=== PATIENT | female | born 1950 | race Caucasian/White ===

== ENCOUNTER 2020-03-13 14:00 | Outpatient (REF) | payer OTHER, SELFPAY ==
--- NOTE | 2020-03-13 15:00 | XR_ITS ---
EXAMINATION: XR PELVIS CLINICAL INFORMATION: Pain COMPARISON: Previous x-ray most recent November 2019 TECHNIQUE: AP view of the pelvis. FINDINGS: There is severe left hip arthritis with joint space narrowing and osteophyte formation. There is a vertical lucency in the left superior lateral acetabulum. This is similar to previous exam. There is a right hip replacement in satisfactory position. Bones of the pelvis are unremarkable. There are degenerative changes of the visualized lower lumbar spine. There are surgical clips to the right of the lower lumbar spine and in the bilateral pelvis. IMPRESSION: Severe left hip arthritis. Stable appearance to the vertical lucency in the superior lateral acetabulum from November 2019 exam. Satisfactory appearance of right hip replacement.
== END 2020-03-13 14:01 | disposition home or self-care (01) ==
LOC: CF 14:00
PROVIDERS: PCP Internal Medicine; Referring Provider Internal Medicine; Visit Provider Orthopaedic Surgery
DX: M25.559 Pain in unspecified hip (principal); M16.12 Unilateral primary osteoarthritis, left hip
CPT/HCPCS: 72170; 99213

== ENCOUNTER 2020-04-01 05:38 | Inpatient (IN) | payer OTHER, MEDICARE, SELFPAY ==
[2020-03-01 09:03] VITALS: BMI 29.7
[2020-03-04 12:02] VITALS: BP 140/70; PULSE 75; RESP 20; O2SAT 97; BMI 29.5
--- NOTE | 2020-03-04 12:42 | P.CONAN_ITS ---
Documented by User: Yaa Byrnesney 03/29/20 10:27 HPI - Anesthesia Eval Consult details Narrative: Resched to 04/01/20 70yo F for L NOLAN s/p R NOLAN 11/2018 Pcp Cleared [facility] Past Medical History Medical History Arthritis Back pain Cancer Elevated cholesterol Essential tremor Hx of degenerative disc disease Hx pulmonary embolism Postoperative voiding difficulty Family History Family history of problems with anesthesia: No Surgical History Surgical History H/O colonoscopy History of surgical removal of ganglion cyst History of total replacement of left shoulder joint History of total right hip arthroplasty Hx of cataract surgery Hx of cervical discectomy Hx of lumbar discectomy Hx of total hysterectomy with removal of both tubes and ovaries History of Problems with Anesthesia: No Social History Social History Are you a primary medicare contact specialist to a significant other at home: No Do you presently have visiting nurse or other home services: No Smoking Status: Former smoker Smoked in Last 30 Days: No Smoking Quit Date: 2009 Second Hand Smoke Exposure: No Use of substances other than those prescribed or required for medical reasons: No Have you been hit, kicked, punched, or otherwise hurt by someone within the past year? If so, by whom?: No Advance Directives: No Advance Directives Information Provided: No Recently lost weight without trying: No Current occupational status: retired Current occupation: Right Handed Narrative Narrative: Pt with inability to void post-op last hip. Required straight cath x 2 days. No recent illness. No CP/ SOB with minimal activity. activity limited by pain. Meds Allergies Allergy/AdvReac Type Severity Reaction Status Date / Time amoxicillin [AMOXICILLIN] Allergy Severe ANGIOEDEMA, Verified 03/13/20 14:12 tongue swells Home Medications Medication Instructions Recorded Confirmed Type amlodipine 1 tab PO DAILY 03/04/20 04/01/20 History carboxymethylcellulose sodium 1 drp OPHTHALMIC (EYE) BID 03/04/20 04/01/20 History [Refresh Liquigel] [id number] C-Mn 2 cap PO DAILY 03/04/20 04/01/20 History [Glucosamine 1500 Complex] pravastatin 20 mg PO BEDTIME 03/04/20 04/01/20 History primidone 50 mg PO QID 03/04/20 03/04/20 History vitamin B complex 1 tab PO DAILY 03/04/20 04/01/20 History Exam Exam Date and Time: March 04, 2020 1242 Height,Weight and Vital Signs: Height 5 ft 4.5 in Weight 79.379 kg Last Vital Signs Pulse 75 03/04/20 12:02 Resp 20 03/04/20 12:02 BP 140/70 H 03/04/20 12:02 Pulse Ox 97 03/04/20 12:02 Pertinent Lab Results Pertinent Lab Results: WBC 5.1 HGB 13.0 HCT 41.2 PLT 359 NA 141 K 52 Cl 108 CO2 28 BUN 15 Creat 0.8 Narrative Narrative: EKG 03/11/20: NSR @61, LAD Airway Mallampati Class: III TM Dist: >3cm Neck ROM: Full (S/p disc decompression) Heart: RRR Lungs: CTAB Assessment and Plan Assessment Anesthesia Assessment: Anesthesia Plan Discussed, Consent Obtained and PAT Visit Documented by User: Mac Gardiner MD 04/01/20 07:39 PMFSH Past Medical History Medical History Arthritis Back pain Cancer Elevated cholesterol Essential tremor Hx of degenerative disc disease Hx pulmonary embolism Postoperative voiding difficulty Surgical History Surgical History H/O colonoscopy History of surgical removal of ganglion cyst History of total replacement of left shoulder joint History of total right hip arthroplasty Hx of cataract surgery Hx of cervical discectomy Hx of lumbar discectomy Hx of total hysterectomy with removal of both tubes and ovaries Social History Social History Are you a primary medicare contact specialist to a significant other at home: No Do you presently have visiting nurse or other home services: No Smoking Status: Former smoker Smoked in Last 30 Days: No Smoking Quit Date: 2009 Second Hand Smoke Exposure: No Use of substances other than those prescribed or required for medical reasons: No Have you been hit, kicked, punched, or otherwise hurt by someone within the past year? If so, by whom?: No Advance Directives: No Advance Directives Information Provided: No Recently lost weight without trying: No Current occupational status: retired Current occupation: Right Handed Meds Allergies Allergy/AdvReac Type Severity Reaction Status Date / Time amoxicillin [AMOXICILLIN] Allergy Severe ANGIOEDEMA, Verified 03/13/20 14:12 tongue swells Home Medications Medication Instructions Recorded Confirmed Type amlodipine 1 tab PO DAILY 03/04/20 04/01/20 History carboxymethylcellulose sodium 1 drp OPHTHALMIC (EYE) BID 03/04/20 04/01/20 History [Refresh Liquigel] [id number] C-Mn 2 cap PO DAILY 03/04/20 04/01/20 History [Glucosamine 1500 Complex] pravastatin 20 mg PO BEDTIME 03/04/20 04/01/20 History primidone 50 mg PO QID 03/04/20 03/04/20 History vitamin B complex 1 tab PO DAILY 03/04/20 04/01/20 History Assessment and Plan Assessment Anesthesia Assessment: Anesthesia Plan Discussed, Consent Obtained, Smoking Cess. Discussed and Chart Reviewed Final Anesthetic Review ASA Class: II Final Preanesthetic Review: No Changes in Pt Med Stat, Meds & Allergies Reviewed, Consent Obtained/Reviewed, Med/Surg/Anes Hx Reviewed and Anes Risks/Benef Reviewed Patient Risk: Intermediate Procedure Risk: Intermediate Anesthetic Plan Anesthetic Plan: GA Disposition: Standard PACU
[2020-03-04 16:31] LABS: MRSA Nasal PCR Negative (Negative); SA Nasal PCR Negative (Negative)
[2020-04-01] VITALS (12 sets, daily range): BP systolic 100–152; BP diastolic 52–79; PULSE 71–88; RESP 14–19; TEMP 36.2–36.8; O2SAT 93–100
[2020-04-01] MEDS: oxyCODONE HCl ER 10 MG TAB.ER.12H PO (06:03)
[2020-04-01] MEDS: Gabapentin 600 MG TABLET PO (06:04)
[2020-04-01] MEDS: Lactated Ringers 1,000 ML 100 ML IVCONT (06:39)
[2020-04-01 07:21] LABS: SARS COV2 PCR INHOUSE NEGATIVE (Negative)
[2020-04-01] MEDS: ceFAZolin Sodium/Dextrose,Iso 2 GM/50 ML PIGGYBACK IV ×2 (07:22→14:18)
--- NOTE | 2020-04-01 07:30 | PC.NURSE ---
PATIENT IS ALLERGIC TO AMOXICILLIN AND HAD CEFAZOLIN LAST YEAR FOR HER RIGHT HIP. CALLED PHARMACY.
--- NOTE | 2020-04-01 07:30 | MHC.SHP ---
Pre-Procedural Eval Section A The patient is an INPATIENT: No Changes since office visit: No Cold of Flu in the past 2 weeks, No New Medical Problems, No Changes in Medication and No Patient answered all questions The History & Physical has been completed within 30 days and I have reviewed it.: No Section B Chief Complaint: LT NOLAN Allergies: Allergies Allergy/AdvReac Type Severity Reaction Status Date / Time amoxicillin [AMOXICILLIN] Allergy Severe ANGIOEDEMA, Verified 03/13/20 14:12 tongue swells Plan Patient has been examined and remains a candidate for the planned procedure
--- NOTE | 2020-04-01 09:18 | P.PCNOP_ITS ---
Brief Operative Note Date of procedure: 04/01/20 Pre-op diagnosis: OA LEFT HIP Procedure: LEFT NOLAN Anesthesia: CEM Surgeon: Dmitry Alex Director Foundation: Jadiel Rai Estimated blood loss (mL): 100 Condition: stable Disposition: PACU
--- NOTE | 2020-04-01 09:29 | PM.IMCN ---
History of Present Illness Data of Consult Service Date: 04/01/20 <Barbara Leblanc NP - Last Filed: 04/01/20 12:26> Primary Care Provider: Yolanda Davis <Barbara eLblanc NP - Last Filed: 04/01/20 12:26> HPI Reason for consult: Medical management <Barbara Leblanc NP - Last Filed: 04/01/20 12:26> 70 year old women admitted by orthopedic surgery. Surgery was unremarkable. She is still somewhat woozy according to the patient. Her pain seem to be managed at this point. Her vital signs mare stable. She's resting in bed. <Barbara Leblanc NP - Last Filed: 04/01/20 12:26> Review of Systems Review of Systems: Denies any recent fever chills or decrease in appetite respiratory denies any shortness of breath coverage production cardiovascular is adjustment of any PND or edema gastrointestinal denies any dysphagia abdominal pain nausea vomiting or diarrhea genitourinary denies any dysuria frequency or hematuria musculoskeletal joint/hip pain neuropsych denies any weakness or seizures all other systems reviewed are negative <Barbara Leblanc NP - Last Filed: 04/01/20 12:26> FOR[facility]LY [facility], [facility] Medical History: Medical History Arthritis Back pain Cancer Elevated cholesterol Essential tremor Hx of degenerative disc disease Hx pulmonary embolism Postoperative voiding difficulty <Barbara Leblanc NP - Last Filed: 04/01/20 12:26> Family History: Family History (Updated 04/01/20 @ 09:35 by Barbara Leblanc NP) Mother HTN (hypertension), benign <Barbara Leblanc NP - Last Filed: 04/01/20 12:26> Surgical History: Surgical History H/O colonoscopy History of surgical removal of ganglion cyst History of total replacement of left shoulder joint History of total right hip arthroplasty Hx of cataract surgery Hx of cervical discectomy Hx of lumbar discectomy Hx of total hysterectomy with removal of both tubes and ovaries <Barbara Leblanc NP - Last Filed: 04/01/20 12:26> Social History: Social History Household Members: None Housing: Apartment Are you a primary health care social worker to a significant other at home: No Do you presently have visiting nurse or other home services: No Smoking Status: Former smoker Smoked in Last 30 Days: No Smoking Quit Date: 2009 Second Hand Smoke Exposure: No Use of substances other than those prescribed or required for medical reasons: No Have you been hit, kicked, punched, or otherwise hurt by someone within the past year? If so, by whom?: No Advance Directives: No Advance Directives Information Provided: No Do you have thoughts of harming others: None Do you have a plan to hurt others: No Plan Recently lost weight without trying: No Current occupational status: retired Current occupation: Right Handed <Barbara Leblanc NP - Last Filed: 04/01/20 12:26> Meds Allergies/Adverse reactions: Allergies Allergy/AdvReac Type Severity Reaction Status Date / Time amoxicillin [AMOXICILLIN] Allergy Severe ANGIOEDEMA, Verified 03/13/20 14:12 tongue swells <Barbara Leblanc NP - Last Filed: 04/01/20 12:26> Home medications: Home Medications Medication Instructions Recorded Confirmed Type amlodipine 1 tab PO DAILY 03/04/20 04/01/20 History carboxymethylcellulose sodium 1 drp OPHTHALMIC (EYE) BID 03/04/20 04/01/20 History [Refresh Liquigel] [id number] C-Mn 2 cap PO DAILY 03/04/20 04/01/20 History [Glucosamine 1500 Complex] pravastatin 20 mg PO BEDTIME 03/04/20 04/01/20 History primidone 50 mg PO QID 03/04/20 03/04/20 History vitamin B complex 1 tab PO DAILY 03/04/20 04/01/20 History <Barbara Leblanc NP - Last Filed: 04/01/20 12:26> Physical Exam Vital Signs and Narrative: Vital Signs: Last Vital Signs Temp 98.1 F 04/01/20 06:29 Pulse 71 04/01/20 06:29 Resp 16 04/01/20 06:29 BP 124/69 04/01/20 06:29 Pulse Ox 95 04/01/20 06:29 Body Mass Index 29.5 <Barbara Leblanc NP - Last Filed: 04/01/20 12:26> Appearing in no acute distress head is normocephalic atraumatic eyes pupils are PERRLA sclera is anicteric mouth throat mucous membranes are intact and moist neck is supple no lymphadenopathy, no JVD noted lung sounds are clear to auscultation heart regular rate rhythm, clear S1, S2 positive bowel sounds, abdomen is soft, nontender neuro patient is alert x3, no focal deficits msk left hip pain. dressing clean, dry and intact <Barbara Leblanc NP - Last Filed: 04/01/20 12:26> Results Labs Labs: Laboratory Tests 03/04/20 03/04/20 04/01/20 12:30 14:12 05:46 Nasal Screen MRSA (PCR) Negative Nasal S. aureus Screen Negative Nasal MRSA/S.aureus Interp SEE NOTE Coronavirus (PCR) NEGATIVE COVID-19 PCR Cancelled Blood Type O Positive Antibody Screen NEGATIVE 04/01/20 06:25 Nasal Screen MRSA (PCR) Nasal S. aureus Screen Nasal MRSA/S.aureus Interp Coronavirus (PCR) COVID-19 PCR Blood Type O Positive Antibody Screen NEGATIVE <Barbara Leblanc NP - Last Filed: 04/01/20 12:26> Assessment and Plan (1) Primary localized osteoarthritis of left hip: Status: Acute <Barbara Leblanc NP - Last Filed: 04/01/20 12:26> 70 year old women status post left hip arthroplasty. Left hip arthroplasty. Management as per surgical team. Hypertension. Stable blood pressure. Continue amlodipine tommorrow. Hold for hypotension. Hyperlipidemia. Statin. DVT prophylaxis with aspirin as per orthopedic surgery. Discussed with Full code <Barbara Leblanc NP - Last Filed: 04/01/20 12:26> Patient reviewed with [employer], and agree with A/P as abobe <Mehul Prieto MD - Last Filed: 04/01/20 12:29>
[2020-04-01] MEDS: HYDROmorphone HCl 0.5 MG/0.5 ML SYRINGE 0.25 MG IVPUSH ×3 (09:37→09:57)
[2020-04-01] MEDS: oxyCODONE HCl Immed Release 5 MG TABLET 10 MG PO ×2 (09:57→21:04)
--- NOTE | 2020-04-01 10:07 | OP_ITS ---
SURGEON: Dmitry Alex MD PREOPERATIVE DIAGNOSIS: Osteoarthritis, left hip. POSTOPERATIVE DIAGNOSIS: Osteoarthritis, left hip. PROCEDURE PERFORMED: Left total hip arthroplasty - [place] Accolade II, size 3 x 132 femur, 50 mm Tritanium acetabulum, 32 mm Biolox head x 0 mm, 32 mm flat acetabular liner. ESTIMATED BLOOD LOSS: COMPLICATIONS: ANESTHESIA: ASSISTANTS: SPECIMENS: CLINICAL NOTE: This lady had osteoarthritis involving the left hip. She had a several problem with the right hip and underwent a total hip arthroplasty last tear. Therefore, after explaining the risks, benefits, and alternatives and answering all her questions, it was mutually agreed upon to carry out the following procedure. DESCRIPTION OF PROCEDURE: Under general anesthetic, the patient was placed in the right lateral decubitus position with the left hip up. The left hip was prepped and draped in standard fashion with the left leg free. Surgical time-out was then performed. The patient was identified, procedure confirmed, site confirmed. Medical analogy and history reviewed. Preoperative antibiotics were given. Standard DVT prophylaxis was in place. Tranexamic acid was given as well. All other items were discussed and agreed upon. Standard anterolateral approach to the hip was carried out, taken down through subcutaneous tissues. Hemostasis was achieved along the way using electrocautery, brought us down to the level of the fascia amberly, which was divided along the length of the incision. Following this, the anterior two-thirds of the abductor musculature was taken down through tendon directly off the greater trochanter and elevated off the capsule down to the level of the acetabulum. At this point, a capsulectomy was performed. The hip was dislocated, it was resected according to the preoperative templating and we turned our attention to the acetabulum. Some osteophytes were removed circumferentially. The remainder of the soft tissues were removed from the labrum as well as in the acetabular fossa. Starting with a 48 mm reamer, it was reamed up to 50 mm size. There was good circumferential bleeding. We were just about down to the level of the fovea. The trial was put into place, had excellent alignment and fit, and therefore the 50 mm Tritanium acetabulum was selected and brought up on the table. The wound was thoroughly irrigated. The permanent component was brought up on the table. It was tapped into place with excellent fit and fill. The 0 mm trial liner for the 32 mm head was put into place and we turned our attention to the femur. Box osteotome was used to lateralize the canal. T-reamer was used to sound the canal. It was sequentially broached from 0 to a 3. This had excellent fit and fill and rotational alignment. A trial reduction was performed using the 132 collar with the 32 mm head and 0 enhancement. This was relocated. The hip was placed through full range of motion, had excellent stability in all positions. It had excellent leg length and therefore, #3 x 132 degree Accolade II stem with the 32 mm x 0 degree trial liner and the 32 mm Biolox head with a 0 mm extension was selected and brought up on the table. The hip was re-dislocated a final time. All the trial components were removed. The acetabulum was thoroughly irrigated. The permanent liner was tapped into place. The femur was then irrigated. The permanent component brought up and tapped into place with the same alignment, fit and fill as the broach. The Hamilton taper was cleaned and dried and the permanent head was tapped into place. The hip was relocated a final time, demonstrated equal leg lengths, full range of motion, stable in all positions, and therefore proceeded to closure. Wound was thoroughly irrigated. The abductor musculature closed with #2 Dexon. The fascia amberly closed with #2 Quill suture. Skin approximated using interrupted 2-0 Dexon. Skin was closed with aidee. Sterile dressing was then applied. The patient's anesthesia was then reversed. They were transferred supine to the room bed, then taken to the recovery room in good condition. Intraoperatively, the second unit of tranexamic acid was given at the time of closure. There was approximately 100 mL of blood loss. No complications. MD JAMESON [place]/CHITO / [id number]
--- NOTE | 2020-04-01 13:47 | PC.NURSE ---
patient bladder scanned for >547ml at 1245, straight cathed for 1000ml
[2020-04-01] MEDS: Primidone 50 MG TABLET PO ×3 (14:18→21:05)
[2020-04-01] MEDS: 0.9 % Sodium Chloride Flush 3 ML SYRINGE IVFLUSH ×2 (17:24→23:58)
[2020-04-01] MEDS: Morphine Sulfate 2 MG/ML CARTRIDGE IVPUSH (17:24)
--- NOTE | 2020-04-01 19:31 | PC.NURSE ---
urge to void. unable to void with bedpan. Straight cath with 500ml yellow urine.
[2020-04-01] MEDS: Pravastatin Sodium 20 MG TABLET PO (21:04)
[2020-04-01] MEDS: Acetaminophen 325 MG TABLET 650 MG PO (21:05)
[2020-04-01] MEDS: Ketorolac Tromethamine 15 MG/ML VIAL IVPUSH (21:05)
[2020-04-02] MEDS: Acetaminophen 325 MG TABLET 650 MG PO ×4 (02:22→20:29)
[2020-04-02] MEDS: oxyCODONE HCl Immed Release 5 MG TABLET 10 MG PO ×4 (02:23→20:29)
[2020-04-02] MEDS: Ketorolac Tromethamine 15 MG/ML VIAL IVPUSH ×4 (02:24→20:30)
[2020-04-02 03:00] VITALS: BP 99/59; PULSE 78; RESP 19; TEMP 36.4; O2SAT 96
[2020-04-02 06:26] LABS: Hemoglobin 10.1 g/dl (12.0-16.0)
[2020-04-02 07:00] VITALS: BP 137/61; PULSE 75; RESP 19; TEMP 36.1; O2SAT 96
--- NOTE | 2020-04-02 07:00 | XR_ITS ---
EXAMINATION: XR HIP, LEFT CLINICAL INFORMATION: Post left hip replacement COMPARISON: None TECHNIQUE: Two views of the left hip and one view of the pelvis. FINDINGS: There is a new left hip replacement in satisfactory position. No fracture or dislocation is seen. There are postoperative changes of the soft tissues. There is a right hip replacement in satisfactory position. Bones of the pelvis are unremarkable. There are degenerative changes of the visualized lower lumbar spine. XR/XR hip LT w PEL1V IMPRESSION: Satisfactory appearance of left hip replacement.
--- NOTE | 2020-04-02 08:01 | P.PNOP_ITS ---
Subjective Subjective Principal diagnosis: s/p LT NOLAN Interval history: 70 Y.O. Female POD1. Vitals stable. No overnight events. Resting comfortably in bed. Worked with p.t. yesterday for eval but her block was still in effect. She will work with [employer] again today and be evaled for d/c to STR or home. Physical Exam Vital Signs: Vital Signs: Vital Signs Temp Pulse Resp BP Pulse Ox 04/02/20 07:00 97 F 75 19 137/61 96 04/02/20 03:00 97.6 F 78 19 99/59 L 96 04/01/20 23:00 98.2 F 86 19 100/52 L 93 04/01/20 19:43 97.7 F 77 18 149/68 H 94 04/01/20 15:44 97.6 F 71 17 107/54 L 97 04/01/20 13:09 97.4 F 75 17 120/63 100 04/01/20 10:17 78 16 131/64 100 04/01/20 10:02 77 14 141/68 H 98 04/01/20 09:57 86 16 140/72 H 98 04/01/20 09:47 80 14 138/76 100 04/01/20 09:42 82 14 144/79 H 100 04/01/20 09:37 86 16 152/71 H 100 04/01/20 09:32 97.2 F 88 16 152/72 H 100 Body Mass Index 29.5 Const: General: cooperative, healthy appearing and no acute distress Resp: Effort & Inspection: normal respiratory effort and able to speak in complete sentences Cardio: Rate: regular rate Peripheral pulses: Peripheral pulses 2+ throughout GI: Inspection: Yes normal to inspection Palpation (GI): Soft to palpation Skin: General skin exam: no rashes or lesions noted Neuro: Other: Extrem: Other: lt hip no redness, ecchymosis, bandage is clean dry and intact. Progress Note: A&P Assessment and plan (1) History of total left hip arthroplasty: Status: Acute Assessment and Plan: Continue pain mgmnt Begin ASA for dvt ppx begin PT for LT NOLAN Dispo planning-Pending PT eval, pain mgmnt Fall Risk Details Current Medications: Current Medications Generic Name Dose Route Start Last Admin Trade Name Freq PRN Reason Stop Dose Admin Acetaminophen 650 mg 04/01/20 15:00 11/03/20 02:22 Acetaminophen 325 Mg Tablet PO 650 mg Q6H JUAN Administration Amlodipine Besylate 10 mg 04/02/20 09:00 Amlodipine Besylate 10 Mg Tablet PO DAILY [facility] Protocol Aspirin 325 mg 04/02/20 10:00 Aspirin 325 Mg Tablet PO BID [facility] Ketorolac Tromethamine 15 mg 04/01/20 15:00 04/02/20 02:24 Ketorolac Tromethamine 15 Mg/Ml Vial IVPUSH 15 mg Q6H JUAN Administration Morphine Sulfate 2 mg 04/01/20 11:44 04/01/20 17:24 Morphine Sulfate 2 Mg/Ml Cartridge IVPUSH 2 mg Q2H PRN Administration Pain, Severe (Pain Scale 7-10) Naloxone HCl 0.2 mg 04/01/20 11:44 Naloxone Hcl 0.4 Mg/Ml Vial IVPUSH Q2M PRN Excessive sedation or RR < 8 Ondansetron HCl 4 mg 04/01/20 11:44 Ondansetron Hcl 4 Mg/2 Ml Vial IVPUSH Q8H PRN Nausea and Vomiting Oxycodone HCl 10 mg 04/01/20 15:00 04/02/20 02:23 Oxycodone Hcl Immed Release 5 Mg Tablet PO 10 mg Q6H JUAN Administration Pravastatin Sodium 20 mg 04/01/20 21:00 04/01/20 21:04 Pravastatin Sodium 20 Mg Tablet PO 20 mg BEDTIME JUAN Administration Primidone 50 mg 04/01/20 13:00 04/01/20 21:05 Primidone 50 Mg Tablet PO 50 mg QID JUAN Administration Sodium Chloride 3 ml 04/01/20 16:00 04/01/20 23:58 0.9 % Sodium Chloride Flush 3 Ml Syringe IVFLUSH 3 ml QSHIFT JUAN Administration Time Spent With Patient Time: Total time spent is greater than 50% in coordination of care (as documented) at patient's floor/unit and/or counseling patient: Time with patient: 15 - 24 minutes
[2020-04-02] MEDS: Primidone 50 MG TABLET PO ×4 (08:48→20:29)
[2020-04-02] MEDS: Aspirin 325 MG TABLET PO ×2 (08:49→20:29)
[2020-04-02] MEDS: amLODIPine Besylate 10 MG TABLET PO (08:49)
[2020-04-02] MEDS: 0.9 % Sodium Chloride Flush 3 ML SYRINGE IVFLUSH ×3 (08:50→20:30)
--- NOTE | 2020-04-02 09:14 | HO.PM.IMPN ---
Subjective Subjective Date of Service: 04/02/20 Interval History: some soreness in left hip otherwise doing well. Review of Systems Gen: no fever Musck: hip pain Physical Exam Vital Signs: Vital Signs: Vital Signs Temp Pulse Resp BP Pulse Ox 04/02/20 07:00 97 F 75 19 137/61 96 04/02/20 03:00 97.6 F 78 19 99/59 L 96 04/01/20 23:00 98.2 F 86 19 100/52 L 93 04/01/20 19:43 97.7 F 77 18 149/68 H 94 04/01/20 15:44 97.6 F 71 17 107/54 L 97 04/01/20 13:09 97.4 F 75 17 120/63 100 04/01/20 10:17 78 16 131/64 100 04/01/20 10:02 77 14 141/68 H 98 04/01/20 09:57 86 16 140/72 H 98 04/01/20 09:47 80 14 138/76 100 04/01/20 09:42 82 14 144/79 H 100 04/01/20 09:37 86 16 152/71 H 100 04/01/20 09:32 97.2 F 88 16 152/72 H 100 Body Mass Index 29.5 General: AO X 3, no acute distress but ill appearing Resp: CTA bilateral CVS: S1,S2,RRR GI: +BS, NT, no distention Skin: left hip wound dry clean, intact Neuro: motor grossly intact Psych: appropriate affect Objective Data Current Medications Generic Name Dose Route Start Last Admin Trade Name Robert PRN Reason Stop Dose Admin Acetaminophen 650 mg 04/01/20 15:00 04/02/20 08:49 Acetaminophen 325 Mg Tablet PO 650 mg Q6H JUAN Administration Amlodipine Besylate 10 mg 04/02/20 09:00 04/02/20 08:49 Amlodipine Besylate 10 Mg Tablet PO 10 mg DAILY JUAN Administration Protocol Aspirin 325 mg 04/02/20 10:00 04/02/20 08:49 Aspirin 325 Mg Tablet PO 325 mg BID JUAN Administration Ketorolac Tromethamine 15 mg 04/01/20 15:00 04/02/20 08:48 Ketorolac Tromethamine 15 Mg/Ml Vial IVPUSH 15 mg Q6H JUAN Administration Morphine Sulfate 2 mg 04/01/20 11:44 04/01/20 17:24 Morphine Sulfate 2 Mg/Ml Cartridge IVPUSH 2 mg Q2H PRN Administration Pain, Severe (Pain Scale 7-10) Naloxone HCl 0.2 mg 04/01/20 11:44 Naloxone Hcl 0.4 Mg/Ml Vial IVPUSH Q2M PRN Excessive sedation or RR < 8 Ondansetron HCl 4 mg 04/01/20 11:44 Ondansetron Hcl 4 Mg/2 Ml Vial IVPUSH Q8H PRN Nausea and Vomiting Oxycodone HCl 10 mg 04/01/20 15:00 04/02/20 08:48 Oxycodone Hcl Immed Release 5 Mg Tablet PO 10 mg Q6H JUAN Administration Pravastatin Sodium 20 mg 04/01/20 21:00 04/01/20 21:04 Pravastatin Sodium 20 Mg Tablet PO 20 mg BEDTIME JUAN Administration Primidone 50 mg 04/01/20 13:00 04/02/20 08:48 Primidone 50 Mg Tablet PO 50 mg QID JUAN Administration Sodium Chloride 3 ml 04/01/20 16:00 04/02/20 08:50 0.9 % Sodium Chloride Flush 3 Ml Syringe IVFLUSH 3 ml QSHIFT JUAN Administration Labs CBC & Chem 7: 04/02/20 05:54 Assessment and Plan (1) Primary localized osteoarthritis of left hip: Status: Acute Assessment and Plan: 70 year old women status post left hip arthroplasty. Left hip arthroplasty. Management by ortho. Hypertension. Stable blood pressure. Restart Amlodipine Hyperlipidemia. Statin. DVT prophylaxis with aspirin as per orthopedic surgery.
--- NOTE | 2020-04-02 10:56 | HO.POSTANES ---
Post Anesthesia Evaluation Post Anesthesia Evaluation Vital Signs: Vital Signs Temp Pulse Resp BP Pulse Ox 04/02/20 07:00 97 F 75 19 137/61 96 04/02/20 03:00 97.6 F 78 19 99/59 L 96 04/01/20 23:00 98.2 F 86 19 100/52 L 93 Anesthesia: General Endotracheal-GETA Mental Status: Awake Pain Control: Satisfactory Nausea/Vomiting: None Hydration: Adequate Anesthesia-Related Issues: No Anes. Related Issues
[2020-04-02 11:00] VITALS: BP 110/60; PULSE 73; RESP 19; TEMP 37.1; O2SAT 92
--- NOTE | 2020-04-02 13:51 | MHC.CM.PN ---
PATIENT IS INDEPENDENT WITH HER ADLS. SHE DOES HAVE A CANE AND WALKER IN THE HOME. NO VNA OR ELDER SERVICES. SHE IS REQUESTING A REFERRAL TO [facility] NOW PLACED. CASE MANAGEMENT FOLLOWING FOR DC PLAN
[2020-04-02 15:00] VITALS: BP 98/60; PULSE 78; RESP 19; TEMP 37.1; O2SAT 95
--- NOTE | 2020-04-02 15:08 | MHC.CM.PN ---
[facility] IS OFFERING A BED FOR WEDNESDAY PENDING ONE MORE NEGATIVE COVID RESULT, AND INSURANCE AUTHORIZATION.
[2020-04-02] MEDS: 0.9 % Sodium Chloride 1,000 ML 100 ML IVCONT (15:56)
--- NOTE | 2020-04-02 18:51 | P.DS_ITS ---
DS: Providers Provider Date of admission: 04/01/20 05:38 Primary care physician: Yolanda Davis Consults: 04/01/20 09:09 Consult to Hospitalist Routine Consulting Provider: Hospitalist Reason for consultation: medical issues Has provider been notified: No DS: Diagnosis Discharge Diagnosis (1) Primary localized osteoarthritis of left hip: Status: Acute Problem details: Ms Emery is a 70 yo female who presented to our office with ongoing left hip pain. She failed all conservative measures and continued to have difficulty with daily activities and ambulation; therefore, she elected to move forward with Left total hip arthroplasty. DS: Summary Hospital Course Hospital Course: Ms. Emery underweant a successful left total hip arthroplasty. She was transferred to PACU and then to the floor to recover. During her stay her vitals were stable, afebrile at 97.4, H+H 10.1 and 31.0. POD1 we began ASA for DVT ppx BID and began P.T. and O.T. BID. While working with p.t. pt. experienced orthostatic hypotension. She received a bolus with resolution. Bandage was changed prior to d/c and incision was clean dry and intact. New aquacel dressing applied. Plan to transfer to [facility]. Time Spent with Patient Time attestation: Total time spent providing and/or coordinating discharge s ervices: Physical Exam Vital Signs: Vital Signs: Vital Signs Temp Pulse Resp BP Pulse Ox 04/02/20 15:00 98.8 F 78 19 98/60 95 04/02/20 11:00 98.8 F 73 19 110/60 92 04/02/20 07:00 97 F 75 19 137/61 96 04/02/20 03:00 97.6 F 78 19 99/59 L 96 04/01/20 23:00 98.2 F 86 19 100/52 L 93 04/01/20 19:43 97.7 F 77 18 149/68 H 94 Body Mass Index 29.5 Const: General: cooperative, healthy appearing and no acute distress Resp: Effort & Inspection: normal respiratory effort and able to speak in complete sentences Cardio: Rate: regular rate Peripheral pulses: Peripheral pulses 2+ throughout GI: Inspection: Yes normal to inspection Palpation (GI): Soft to palpation Skin: General skin exam: no rashes or lesions noted Extrem: Other: Incision clean dry and intact. [place] intact. No erythema or drainage. DS: Data Data Completed and Pending Pending studies at discharge: Pending at discharge 04/01/20 08:56 Surgical [PTH] Routine Labs on day of discharge: Labs from last 24 hours 04/02/20 04/02/20 17:40 05:54 Hgb 10.1 L Hct 31.0 L COVID-19 PCR Pending Discharge Plan Discharge Patient Disposition: er SNF Referrals: [facility] [Outside] Jadiel Rai PA-C [Physician Alternative Dispute Resolution Mediator] - (Post op appt 04/18/2020 @ 12:30pm) Discharge Medications: New acetaminophen 325 mg Tablet 650 mg PO Q6H 30 Days Qty: 240 RF: 0 aspirin 325 mg Tablet 325 mg PO BID 30 Days Qty: 60 RF: 0 oxycodone 10 mg tablet 10 mg PO Q6H 7 Days Qty: 28 RF: 0 sennosides [Senna Lax] 8.6 mg Tablet 17.2 mg PO BEDTIME PRN (Reason: Constipation) 30 Days Qty: 30 RF: 0 Continued primidone 50 mg tablet 50 mg PO QID RF: 0 amlodipine 10 mg tablet 1 tab PO DAILY RF: 0 vitamin B complex Tablet 1 tab PO DAILY RF: 0 pravastatin 20 mg tablet 20 mg PO BEDTIME RF: 0 Refresh Liquigel 1 % Drops, Liquid Gel 1 drp OPHTHALMIC (EYE) BID RF: 0 [id number] C-Mn 500-400 mg Capsule 2 cap PO DAILY RF: 0 Discharge Orders: Discharge Order (Routine); Ordered 04/03/20 Ordered By: Jadiel Rai Diet: regular diet Activity on Discharge: Use cane or walker Discharge Date/Time: 04/03/20 18:00 Activity Restrictions/Additional Instructions: * Physical Therapy for Total hip arthroplasty: no precautions, gait training, ROM, strength * Limit stair climbing * No showering, no tub bath-keep dressing clean, dry and intact * No driving x6 weeks * Continue Aspirin 325mg tabs twice a day x 4 weeks * Follow up with [facility] in 2 weeks Visit Report Forms: Patient Portal Discharge page Care Plan Goals: Restore function of left hip Health Concerns: None Plan of Treatment: Physical Therapy Pain management DVT prophylaxis
[2020-04-02 19:10] VITALS: BP 116/53; PULSE 79; RESP 19; TEMP 36.5; O2SAT 96
[2020-04-02 19:36] LABS: SARS COV2 PCR INHOUSE NEGATIVE (Negative)
[2020-04-02] MEDS: Pravastatin Sodium 20 MG TABLET PO (20:29)
[2020-04-02 23:07] VITALS: BP 105/46; PULSE 79; RESP 19; TEMP 36.1; O2SAT 94
[2020-04-03] MEDS: oxyCODONE HCl Immed Release 5 MG TABLET 10 MG PO ×3 (02:43→14:23)
[2020-04-03] MEDS: Acetaminophen 325 MG TABLET 650 MG PO ×3 (02:43→14:23)
[2020-04-03] MEDS: Ketorolac Tromethamine 15 MG/ML VIAL IVPUSH ×3 (02:43→14:23)
[2020-04-03 03:52] VITALS: BP 110/62; PULSE 72; RESP 19; TEMP 36.3; O2SAT 96
--- NOTE | 2020-04-03 07:37 | PM.PNORT ---
Subjective Subjective Principal diagnosis: s/p LT NOLAN Interval history: some soreness in left hip otherwise doing well. Resting comfortably in bed. Physical Exam Vital Signs: Vital Signs: Vital Signs Temp Pulse Resp BP Pulse Ox 04/03/20 03:52 97.4 F 72 19 110/62 96 04/02/20 23:07 97.0 F 79 19 105/46 L 94 04/02/20 19:10 97.7 F 79 19 116/53 L 96 04/02/20 15:00 98.8 F 78 19 98/60 95 04/02/20 11:00 98.8 F 73 19 110/60 92 Body Mass Index 29.5 Extrem: Other: Dressing changed. No ecchymosis redness or drainage. [place] intact. Sensation and neurovascularly intact. Progress Note: A&P Assessment and plan (1) History of total left hip arthroplasty: Status: Acute Assessment and Plan: Continue pain mgmnt Continue ASA dvt ppx Continue PT for LT TKA Dispo planning-Pending PT eval, pain mgmnt, Plan to D/C today to [facility] pending insurance approval. Fall Risk Details Current Medications: Current Medications Generic Name Dose Route Start Last Admin Trade Name Freq PRN Reason Stop Dose Admin Acetaminophen 650 mg 04/01/20 15:00 04/03/20 02:43 Acetaminophen 325 Mg Tablet PO 650 mg Q6H JUAN Administration Amlodipine Besylate 10 mg 04/02/20 09:00 04/02/20 08:49 Amlodipine Besylate 10 Mg Tablet PO 10 mg DAILY JUAN Administration Protocol Aspirin 325 mg 04/02/20 10:00 04/02/20 20:29 Aspirin 325 Mg Tablet PO 325 mg BID JUAN Administration Ketorolac Tromethamine 15 mg 04/01/20 15:00 04/03/20 02:43 Ketorolac Tromethamine 15 Mg/Ml Vial IVPUSH 15 mg Q6H JUAN Administration Morphine Sulfate 2 mg 04/01/20 11:44 04/01/20 17:24 Morphine Sulfate 2 Mg/Ml Cartridge IVPUSH 2 mg Q2H PRN Administration Pain, Severe (Pain Scale 7-10) Naloxone HCl 0.2 mg 04/01/20 11:44 Naloxone Hcl 0.4 Mg/Ml Vial IVPUSH Q2M PRN Excessive sedation or RR < 8 Ondansetron HCl 4 mg 04/01/20 11:44 Ondansetron Hcl 4 Mg/2 Ml Vial IVPUSH Q8H PRN Nausea and Vomiting Oxycodone HCl 10 mg 04/01/20 15:00 04/03/20 02:43 Oxycodone Hcl Immed Release 5 Mg Tablet PO 10 mg Q6H JUAN Administration Pravastatin Sodium 20 mg 04/01/20 21:00 04/02/20 20:29 Pravastatin Sodium 20 Mg Tablet PO 20 mg BEDTIME JUAN Administration Primidone 50 mg 04/01/20 13:00 04/02/20 20:29 Primidone 50 Mg Tablet PO 50 mg QID JUAN Administration Sodium Chloride 3 ml 04/01/20 16:00 04/02/20 20:30 0.9 % Sodium Chloride Flush 3 Ml Syringe IVFLUSH 3 ml QSHIFT JUAN Administration Time Spent With Patient Time: Total time spent is greater than 50% in coordination of care (as documented) at patient's floor/unit and/or counseling patient: Time with patient: 15 - 24 minutes
[2020-04-03 07:43] VITALS: BP 146/63; PULSE 73; RESP 17; TEMP 36.4; O2SAT 97
[2020-04-03] MEDS: Primidone 50 MG TABLET PO ×3 (08:12→17:09)
[2020-04-03 08:13] VITALS: BP 146/63; PULSE 73
[2020-04-03] MEDS: amLODIPine Besylate 10 MG TABLET PO (08:13)
[2020-04-03] MEDS: 0.9 % Sodium Chloride Flush 3 ML SYRINGE IVFLUSH (08:13)
[2020-04-03] MEDS: Aspirin 325 MG TABLET PO (08:14)
--- NOTE | 2020-04-03 09:00 | HO.PM.IMPN ---
Subjective Subjective Interval History: Doing well, no new issues Physical Exam Vital Signs: Vital Signs: Vital Signs Temp Pulse Resp BP Pulse Ox 04/03/20 08:13 73 146/63 H 04/03/20 07:43 97.6 F 73 17 146/63 H 97 04/03/20 03:52 97.4 F 72 19 110/62 96 04/02/20 23:07 97.0 F 79 19 105/46 L 94 04/02/20 19:10 97.7 F 79 19 116/53 L 96 04/02/20 15:00 98.8 F 78 19 98/60 95 04/02/20 11:00 98.8 F 73 19 110/60 92 Body Mass Index 29.5 General: AO X 3, no acute distress but ill appearing Resp: CTA bilateral CVS: S1,S2,RRR GI: +BS, NT, no distention Skin: left hip wound dry clean, intact Neuro: motor grossly intact Psych: appropriate affect Objective Data Current Medications Generic Name Dose Route Start Last Admin Trade Name Freq PRN Reason Stop Dose Admin Acetaminophen 650 mg 04/01/20 15:00 04/03/20 08:11 Acetaminophen 325 Mg Tablet PO 650 mg Q6H JUAN Administration Amlodipine Besylate 10 mg 04/02/20 09:00 04/03/20 08:13 Amlodipine Besylate 10 Mg Tablet PO 10 mg DAILY JUAN Administration Protocol Aspirin 325 mg 04/02/20 10:00 04/03/20 08:14 Aspirin 325 Mg Tablet PO 325 mg BID JUAN Administration Ketorolac Tromethamine 15 mg 04/01/20 15:00 04/03/20 08:12 Ketorolac Tromethamine 15 Mg/Ml Vial IVPUSH 15 mg Q6H JUAN Administration Morphine Sulfate 2 mg 04/01/20 11:44 04/01/20 17:24 Morphine Sulfate 2 Mg/Ml Cartridge IVPUSH 2 mg Q2H PRN Administration Pain, Severe (Pain Scale 7-10) Naloxone HCl 0.2 mg 04/01/20 11:44 Naloxone Hcl 0.4 Mg/Ml Vial IVPUSH Q2M PRN Excessive sedation or RR < 8 Ondansetron HCl 4 mg 04/01/20 11:44 Ondansetron Hcl 4 Mg/2 Ml Vial IVPUSH Q8H PRN Nausea and Vomiting Oxycodone HCl 10 mg 04/01/20 15:00 04/03/20 08:13 Oxycodone Hcl Immed Release 5 Mg Tablet PO 10 mg Q6H JUAN Administration Pravastatin Sodium 20 mg 04/01/20 21:00 04/02/20 20:29 Pravastatin Sodium 20 Mg Tablet PO 20 mg BEDTIME JUAN Administration Primidone 50 mg 04/01/20 13:00 04/03/20 08:12 Primidone 50 Mg Tablet PO 50 mg QID JUAN Administration Sodium Chloride 3 ml 04/01/20 16:00 04/03/20 08:13 0.9 % Sodium Chloride Flush 3 Ml Syringe IVFLUSH 3 ml QSHIFT JUAN Administration Labs CBC & Chem 7: 04/02/20 05:54 Assessment and Plan (1) Primary localized osteoarthritis of left hip: Problem details: Ms Emery is a 70 yo female who presented to our office with ongoing left hip pain. She failed all conservative measures and continued to have difficulty with daily activities and ambulation; therefore, she elected to move forward with Left total hip arthroplasty. Status: Acute Assessment and Plan: 70 year old women status post left hip arthroplasty. Left hip arthroplasty. Management by ortho. Hypertension. Stable blood pressure. Continue Amlodipine Hyperlipidemia. Statin. DVT prophylaxis with aspirin as per orthopedic surgery.
[2020-04-03 11:57] VITALS: BP 106/48; PULSE 76; RESP 17; TEMP 36.7; O2SAT 95
--- NOTE | 2020-04-03 13:45 | MHC.CM.PN ---
[facility] HAS STARTED THE AUTH PROCESS, AND IS STILL WAITING FOR CONFIRMATION. SURGICAL PA MADE AWARE. SECOND NEGATIVE COVID RESULTS UPLOADED TO FACILITY. RN AWARE OF PROCESS
[2020-04-03 15:07] VITALS: BP 125/54; PULSE 85; RESP 18; TEMP 36.8; O2SAT 96
--- NOTE | 2020-04-03 15:57 | MHC.CM.PN ---
PATIENT TO TRANSFER TO [facility] FOR 18:00 [facility]. PATIENT, RN, AND UNIT AWARE OF PLAN.
--- NOTE | 2020-04-03 16:36 | MHC.INPTTRAN ---
Pt alert and oriented. Pt ambulates with walker and stand by by assistance. Surgical dressing changed 04/03/20, dressing CDI. Pt voiding without issue. Pt tolerating diet well.
== END 2020-04-03 18:00 | disposition skilled nursing facility (03) | DRG 470 ==
LOC: HO.SSSA 09:30 → HO.S3 09:59
PROVIDERS: Physician Assistant; Admitting Provider Orthopaedic Surgery; Visit Provider Orthopaedic Surgery
PROC: 0SRB0JA Replacement of Left Hip Joint with Synthetic Substitute, Uncemented, Open Approach (ICD-10-PCS; CPT 27130; principal; 2020-04-01 07:30)
DX: M16.12 Unilateral primary osteoarthritis, left hip (principal); I10 Essential (primary) hypertension; E78.5 Hyperlipidemia, unspecified; Z86.711 Personal history of pulmonary embolism; Z96.641 Presence of right artificial hip joint; Z96.612 Presence of left artificial shoulder joint; Z20.828 Contact with and (suspected) exposure to other viral communicable diseases; Z88.0 Allergy status to penicillin; Z79.82 Long term (current) use of aspirin; Z79.891 Long term (current) use of opiate analgesic; Z79.899 Other long term (current) drug therapy
CPT/HCPCS: 36415; 73502; 85014; 85018; 86850; 86900; 86901; 87640; 87641; 88304; 88311; 97110; 97116; 97162; 97165; 97530; 97535; C1776; J0131; J0690; J1170; J1885; J2250; J2270; J2405; J3010; U0003

== ENCOUNTER → 2020-04-17 10:15 | Outpatient (BNVA) | payer OTHER, SELFPAY | PROVIDERS: Visit Provider Orthopaedic Surgery | DX: Z47.1 Aftercare following joint replacement surgery (principal); Z96.642 Presence of left artificial hip joint | CPT/HCPCS: 99212 ==

== ENCOUNTER → 2020-06-05 10:32 | Outpatient (BNVA) | payer OTHER, SELFPAY | PROVIDERS: PCP Internal Medicine; Visit Provider Orthopaedic Surgery | DX: Z47.1 Aftercare following joint replacement surgery (principal); Z96.642 Presence of left artificial hip joint | CPT/HCPCS: 99212 ==

== ENCOUNTER 2020-07-03 10:29 | Outpatient (REF) | payer OTHER, SELFPAY ==
--- NOTE | 2020-07-03 10:31 | XR_ITS ---
EXAMINATION: XR HIP, LEFT CLINICAL INFORMATION: Pain COMPARISON: Previous x-ray March 2020 TECHNIQUE: Two views of the left hip and one view of the pelvis. FINDINGS: There are bilateral hip replacements in satisfactory position. No fracture, dislocation or x-ray evidence of loosening is seen. There are degenerative changes of the visualized lower lumbar spine. Soft tissues are unremarkable. XR/XR hip LT w [id number] IMPRESSION: Satisfactory appearance of left hip replacement. Degenerative changes of the lower lumbar spine.
== END 2020-07-03 10:30 | disposition home or self-care (01) ==
LOC: HO.HOSX 10:29
PROVIDERS: PCP Internal Medicine; Visit Provider Orthopaedic Surgery
DX: Z47.1 Aftercare following joint replacement surgery (principal); Z96.642 Presence of left artificial hip joint
CPT/HCPCS: 73502; 99212

== ENCOUNTER 2020-07-05 11:00 | Outpatient (RCR) | payer OTHER, SELFPAY ==
[2020-04-30 11:04] VITALS: BP 169/85; PULSE 70
--- NOTE | 2020-04-30 12:09 | MHC.PT.EP ---
[facility] [place] Office [place] Office [place] Office [address] Faviola Segovia [address] [phone] F: [phone] F: [phone] F: [phone] F: [phone] Physical Therapy Plan of Care Date of Evaluation: 04/30/20 Date of Surgery: 04/01/20 Diagnosis: LTHA Assessment: 70 year old female referred for s/p L NOLAN . Pt is 4 weeks post op. She was in rehab for 10 days after surgery. Pt was suppose to have home PT after d/c however due to long waiting time she had no home PT. Pt's last PT was about 2 weeks back. Examination reveals 0/10 pain at rest and 4/10 pain with standing, walking, prolonged sitting, TTP over L hip suture site, decreased hip ROM, decreased muscle strength, altered posture and gait. She is independent with all self care activities. She lives alone and her sister comes in everyday to help her with cleaning, cooking and laundry. She is a good candidate for PT based on age, goals, physical impairments and functional limitations. She would benefit from PT to decrease pain, improve ROM, increase muscle strength, postural correction, gait training and functional training. Frequency and Duration: The patient will be seen 2/week for 6 weeks Short Term Goals: 1. Pt will have 50% decrease in pain in 2 weeks. 2. Pt will be able to move her hip through all planes of motion without pain in 3 weeks. Cupola Operator Goals: 1. Pt will be independent with all ADLs in 5 weeks. 2. Pt will return to PLOF in 6 weeks. Treatment Plan: Modalities to reduce pain, spasms and effusion. Manual therapy to restore motion and function. Therapeutic exercise to improve strength and flexibility. Neuromuscular re-education for posture and balance. Therapeutic activities to return to functional activities of daily living. Please sign and return to therapist. Thank you for your referral.
--- NOTE | 2020-07-16 14:19 | MHC.PT.DC ---
[facility] [place] Office [place] Office [place] Office [address] Faviola Segovia [address] [phone] F: [phone] F: [phone] F: [phone] F: [phone] Physical Therapy Discharge Report Diagnosis: LTHA Date of Surgery: 04/01/20 Date of Evaluation: 04/30/20 Date of Discharge: 07/16/20 Treatments to Date: 16 Cancellations to Date: 0 No Shows to Date: 0 Discharge Status: Achieved Goals Improved Function Discharge Summary: Pt has achieved all goals set for her and has returned to PLOF. She is independent with all HEPs as well. Electronically signed by: Mya Barba DPT Please sign and return to therapist. Thank you for your referral.
== END 2020-07-16 14:20 | disposition other institution (70) ==
LOC: HO.PT 11:00
PROVIDERS: PCP Internal Medicine; Visit Provider Orthopaedic Surgery
DX: Z47.1 Aftercare following joint replacement surgery (principal); Z96.642 Presence of left artificial hip joint
CPT/HCPCS: 97110; 97116; 97140; 97161; 97530

== ENCOUNTER 2020-08-30 16:47 | Inpatient (IN) | payer OTHER, SELFPAY ==
--- NOTE | ~2020-08-30 | CT_ITS ---
EXAMINATION: CT ABDOMEN AND PELVIS WITH CONTRAST CLINICAL INFORMATION: Right lower quadrant and right upper quadrant pain COMPARISON: None TECHNIQUE: Multidetector volumetric images were obtained from the superior aspect of the liver through the pubic symphysis following administration 85 mL of Omnipaque 350 intravenous contrast. Sagittal and coronal reformatted images were obtained on the technologist's workstation. Oral contrast: No This CT examination was performed using dose optimization techniques as appropriate, variously including the following: *Automated exposure control *Adjustment of mA and/or kV according to patient size (this includes techniques or standardized protocols for targeted exams where dose is matched to indication/reason for exam; i.e. extremities or head) *Use of iterative reconstruction technique DLP: 761 mGy-cm FINDINGS: LUNG BASES: The visualized lung bases are unremarkable. Bibasilar atelectasis is present, left greater than right. A 3 mm subpleural right lower lobe nodule is present (4: 68). LIVER, GALLBLADDER, AND BILIARY TREE: The liver is normal in size, shape, and attenuation. 4 hepatic cysts are present the largest posteriorly in the right lobe of the liver measuring 3.5 cm. No suspicious solid focal hepatic lesion or biliary ductal dilatation is present. The gallbladder contains layering small calculi with no evidence of wall thickening or obvious pericholecystic inflammatory changes. PANCREAS: Unremarkable. A tiny 2 mm hypodensity seen at the junction of the body and tail may be a tiny cyst or possibly invaginated fat. SPLEEN: Unremarkable. ADRENAL GLANDS: Unremarkable. KIDNEYS AND URETERS: The kidneys are normal in size, shape, and attenuation. No hydronephrosis, hydroureter, or calculi seen. No perinephric stranding. BLADDER: Unremarkable. GASTROINTESTINAL TRACT: A small hiatal hernia is present. The small and large bowel are unremarkable. The appendix is unremarkable. ABDOMINAL WALL: No significant hernia is appreciated. LYMPH NODES: No retroperitoneal lymphadenopathy. VASCULAR: Calcific atherosclerotic changes present in the abdominal aorta without aneurysm or dissection. PELVIC VISCERA: Surgically removed OSSEOUS STRUCTURES: Bilateral hip prostheses are present. Degenerative changes are present throughout the spine. No bony destructive lesions seen. CT/CT abdomen pelvis w con IMPRESSION: 1. No significant abnormality is seen which could be accounting for the patient's right upper quadrant and right lower quadrant pain. 2. There is cholelithiasis but without evidence of cholecystitis. 3. Incidental note made of bibasilar atelectasis and 3 mm right subpleural nodule, hepatic cysts, small hiatal hernia, hysterectomy changes, bilateral hip prostheses and degenerative changes in the spine.
--- NOTE | ~2020-08-30 | CT_ITS ---
EXAMINATION: CT ABDOMEN AND PELVIS WITHOUT CONTRAST CLINICAL INFORMATION: Worsening right lower quadrant abdominal pain. Question appendicitis. COMPARISON: CT scan of the abdomen and pelvis dated 08/30/2020. TECHNIQUE: Multidetector volumetric imaging was performed from the superior aspect of the liver through the pubic symphysis. Sagittal and coronal reformatted images were obtained on the technologist workstation. This CT examination was performed using dose optimization techniques as appropriate, variously including the following: *Automated exposure control *Adjustment of mA and/or kV according to patient size (this includes techniques or standardized protocols for targeted exams where dose is matched to indication/reason for exam; i.e. extremities or head) *Use of iterative reconstruction technique DLP: 652 mGy-cm. FINDINGS: LUNG BASES: Scattered peripheral reticular nodular opacities is seen in the lungs bilaterally, unchanged from yesterday's CT scan, likely representing subsegmental atelectasis. A 3 mm subpleural right lower lobe nodule is also again seen, unchanged. LIVER, GALLBLADDER, AND BILIARY TREE: The liver is normal in size, shape, and attenuation. Scattered hepatic cysts are again seen, largest of which is in segment 6, measuring approximately 4 cm in diameter. No biliary ductal dilatation is present. There is vicarious excretion of contrast seen into the gallbladder. Small calcified gallstone is also again noted. No gallbladder wall thickening or pericholecystic fluid is seen. No biliary obstruction is noted. PANCREAS: There is a tiny 0.2 cm low-density mass at the junctions of the pancreatic body and tail (series 3, image 24), less well visualized than on prior exam, possibly a tiny pancreatic cyst or fat invagination into the pancreas. This is of doubtful clinical significance. Pancreas otherwise unremarkable. SPLEEN, ADRENAL GLANDS: Unremarkable on noncontrast imaging. KIDNEYS AND URETERS: The kidneys are normal in size, shape, and attenuation. No hydronephrosis, hydroureter, or calculi seen. No perinephric stranding. BLADDER: Partially visualized and unremarkable to the extent seen. PELVIC VISCERA: Completely obscured by beam hardening artifact from bilateral total hip replacements. GASTROINTESTINAL TRACT: Small retrocardiac hiatal hernia is seen. The small bowel loops are unremarkable. The appendiceal tip is partially obscured due to volume averaging with adjacent bowel. The remainder of the appendix appears unremarkable. There is some mild fat stranding and edema seen surrounding the mid ascending colon with mild associated focal ascending colonic wall thickening and edema. Small right lower quadrant lymph nodes are seen in the mesentery. There is irregular circumferential bowel wall thickening of the ascending colon. The proximal transverse colon abuts this region and also shows eccentric wall thickening, likely a sympathetic reaction. Findings may be related to a focal colitis or potentially a colon cancer. No evidence of bowel perforation or obstruction is seen. No pericolonic abscess collection is noted. ABDOMINAL WALL: There is a small fat-containing umbilical hernia. LYMPH NODES, VASCULAR: Abdominal aorta is normal in caliber with moderate atherosclerotic calcification seen. No periaortic collections. There are small right lower quadrant mesenteric lymph nodes seen. No significant adenopathy in the abdomen or pelvis. OSSEOUS STRUCTURES: Bilateral total hip arthroplasties are in place, limiting assessment of the surrounding tissues. There is diffuse osteopenia. Multilevel advanced degenerative disc disease is noted in the included portions of the lower thoracic spine and in the upper lumbar spine and in the lumbosacral junction. Relative sparing of the disc space height at L3-L4 and L4-L5 is noted. Grade 1 retrolistheses of L1 on L2 and L2 on L3 are seen, unchanged. CT/CT abdomen pelvis wo con IMPRESSION: 1. Abnormal short segment bowel wall thickening is seen in the distal ascending colon leading up into the hepatic flexure with surrounding mesenteric fat stranding, edema and small mesenteric lymph nodes. Presumably reactive changes are also seen in the proximal transverse colon which is contiguous with this region. Differential possibilities would include a focal infectious or inflammatory colitis versus a colon cancer. Close clinical correlation and further workup as clinically appropriate is recommended. 2. The appendix is incompletely visualized on today's study but there are no significant right lower quadrant inflammatory changes seen to suspect acute appendicitis. 3. No changes in the other incidental findings previously enumerated.
[2020-08-30 16:56] VITALS: BP 164/79; PULSE 82; RESP 16; TEMP 36.7; O2SAT 97; BMI 30.2
--- NOTE | 2020-08-30 17:36 | ECG_ITS ---
Test Reason : RIGHT ABDOMEN PAIN Blood Pressure : / mmHG Vent. Rate : 071 BPM Atrial Rate : 071 BPM P-R Int : 164 ms QRS Dur : 098 ms QT Int : 392 ms P-R-T Axes : 073 -37 028 degrees QTc Int : 425 ms Normal sinus rhythm Left axis deviation Abnormal ECG No previous ECGs available Referred By: Flavia Arroyo Electronically Signed By:Jean Kessler
--- NOTE | 2020-08-30 17:39 | ED.ABDPAIN ---
HPI - Abdominal Pain General Chief Complaint: Abdominal Pain Stated Complaint: Lower abdominal pain Time Seen by Provider: 08/30/20 17:22 Source: patient Mode of arrival: ambulatory Limitations: no limitations History of Present Illness HPI narrative: Patient comes emergency room complaining of right lower quadrant pain. Patient states it started at 15:30 while she was seated down and watching TV. Patient states it is intermittent, very sharp, lasting 4-5 seconds at a time, fairly frequent having this sharp pains, nonradiating. Patient denies vomiting or diarrhea. Patient denies fever chills, no dysuria, denies flank pain MD elicited complaint: abdominal pain Related Data Home Medications Medication Instructions Recorded Confirmed amlodipine 10 mg PO DAILY 03/04/20 08/31/20 pravastatin 20 mg PO BEDTIME 03/04/20 08/31/20 primidone 50 mg PO QID 03/04/20 08/31/20 Allergies Allergy/AdvReac Type Severity Reaction Status Date / Time amoxicillin [AMOXICILLIN] Allergy Severe ANGIOEDEMA, Verified 08/31/20 00:18 tongue swells Review of Systems Review of Systems Constitutional : No Weight loss, No Fever, No Chills, No Night Sweats, No Fatigue, No Malaise ENT/Mouth : No Hearing loss, No Ear Pain, No Nasal Congestion, No Sinus Pain, No Hoarseness, No sore throat, No Rhinorrhea, No Swallowing Difficulty Eyes: No Eye Pain, No Swelling, No Redness, No Foreign Body, No Discharge, No Vision Changes Cardiovascular : No Chest Pain, No SOB, No Dyspnea on Exertion, No Orthopnea, No Edema, No Palpitations Respiratory : No Cough, No Sputum, No Wheezing, No Smoke Exposure, No Dyspnea Gastrointestinal : No Nausea, No Vomiting, No Diarrhea, No Constipation, complaining of sharp nonradiating right lower quadrant pain, No Hematochezia, No Melena Genitourinary : no irregular bleeding, No Dysuria, No Urinary Frequency, No Hematuria, No Urinary Incontinence, No Urgency, No Flank Pain, No Urinary Flow Changes, No Hesitancy Musculoskeletal : No joint pain, No Myalgias, No Joint Swelling Skin : No Skin Lesions, No rash Neuro : No Weakness, No Numbness, No Paresthesias, No Loss of Consciousness, No Dizziness, No Headache Psych : No Anxiety/Panic, No Depression, No SI/HI/AH/VH, No Social Issues, Heme/Lymph: No Bruising, No Bleeding,No Lymphadenopathy Endocrine : No Polyuria, No Polydipsia, No Temperature Intolerance Physical Exam Vital Signs: Vital Signs: Last Vital Signs Temp 98.1 F 08/30/20 16:56 Pulse 73 08/30/20 18:39 Resp 18 08/30/20 21:40 BP 156/79 H 08/30/20 18:39 Pulse Ox 94 08/30/20 18:39 Body Mass Index 30.2 Appearance: Alert. Oriented X3. No acute distress. Eyes: Pupils equal, round and reactive to light. ENT: Pharynx normal. Neck: Normal inspection. Neck supple. No lymph nodes noted. No crepitus CVS: Normal heart rate and rhythm. Pulses normal. Normal S1 and S2 Respiratory: No respiratory distress. Breath sounds normal. No Wheezing. No rales Abdomen: Soft , unable to sit up due to pain, significant pain to palpation in the right lower quadrant and McBurney's point, no guarding, positive rebound, borderline Padilla's sign Skin: Skin warm and dry. Normal skin color. Normal skin turgor. Extremities: No lower extremity edema. No lower extremity edema. No Lacerations. No Rash Neuro: Oriented X 3. No motor deficit. No sensory deficit. Moving all extermities. No slurred speech. Course Course Course Narrative: Patient continues having pain despite it mg of morphine. Patient states she has constant low-grade pain, but at times the pain becomes very sharp and it is 10/10. On physical exam, patient continues having significant pain on palpation over the right lower quadrant. Patient's labs and CT scan are not consistent with acute appendicitis I discussed the patient with Dr. Valenzuela, patient will be admitted for observation. MDM - Abdominal Pain Lab Data Result diagrams: 08/30/20 18:06 08/30/20 18:53 Labs: Lab Results 08/30/20 08/30/20 08/30/20 Range/Units 18:06 18:06 18:06 WBC 6.1 (4.8-10.8) X10*3/uL RBC 4.31 (4.20-5.50) X10*6/uL Hgb 12.7 D (12.0-16.0) g/dl Hct 39.3 D (37-47) % MCV 91.2 (80-98) fL MCH 29.5 (27.0-33.0) pg MCHC 32.3 (31.0-35.0) g/dl RDW 13.8 (11.0-16.0) % Plt Count 330 (160-400) X10*3/uL MPV 9.5 (9.4-12.3) fL Immature Gran % (Auto) 0.2 (0.0-0.4) % Neut % (Auto) 64.6 (45-73) % Lymph % (Auto) 23.6 (20-40) % Tripp % (Auto) 9.3 (2-11) % Eos % (Auto) 2.0 (0-4) % Baso % (Auto) 0.3 (0-2) % Lymph # (Auto) 1.4 (1.2-4.9) X10*3/uL Tripp # (Auto) 0.6 (0.1-1.2) X10*3/uL Eos # (Auto) 0.1 (0.0-0.4) X10*3/uL Baso # (Auto) 0.0 (0.0-0.2) X10*3/uL Abs Immat Gran (auto) 0.01 (0.00-0.03) X10*3/uL Absolute Neuts (auto) 3.9 (2.0-8.3) X10*3/uL Absolute Nucleated RBC 0.000 (0.0-0.012) X10*3/uL Nucleated RBC % (auto) 0.0 (0.0-0.2) /100WBC PT 11.7 (10.8-13.0) SEC INR 1.0 (0.9-1.1) Sodium (135-145) mmol/L Potassium (3.3-5.1) mmol/L Chloride (96-108) mmol/L Carbon Dioxide (22-29) mmol/L Anion Gap (12-20) BUN (9-16) mg/dL Creatinine (0.5-1.4) mg/dL Estim Creat Clear Calc Estimated GFR Random Glucose (60-115) mg/dL Lactic Acid 1.2 (0.5-2.0) mmol/L Calcium (8.4-10.2) mg/dL Total Bilirubin (0.0-1.0) mg/dL Direct Bilirubin (0.0-0.5) mg/dL AST (5-31) U/L ALT (0-31) U/L Alkaline Phosphatase (39-117) U/L Total Protein (6.5-8.0) g/dL Albumin (3.5-5.0) g/dL Lipase (8-78) U/L Urine Color Urine Appearance Urine pH (5.0-8.0) Ur Specific [place] (1.005-1.025) Urine Protein (NEG-TRACE) MG/DL Urine Glucose (UA) (NEG) MG/DL Urine Ketones (NEG) MG/DL Urine Blood (NEG) Urine Nitrite (NEG) Ur Leukocyte Esterase (NEG) Urine RBC (0) /HPF Urine WBC (0-4) /HPF Ur Squamous Epith Cells /LPF Urine Bacteria /LPF 08/30/20 08/30/20 08/30/20 Range/Units 18:06 18:53 19:16 WBC (4.8-10.8) X10*3/uL RBC (4.20-5.50) X10*6/uL Hgb (12.0-16.0) g/dl Hct (37-47) % MCV (80-98) fL MCH (27.0-33.0) pg MCHC (31.0-35.0) g/dl RDW (11.0-16.0) % Plt Count (160-400) X10*3/uL MPV (9.4-12.3) fL Immature Gran % (Auto) (0.0-0.4) % Neut % (Auto) (45-73) % Lymph % (Auto) (20-40) % Tripp % (Auto) (2-11) % Eos % (Auto) (0-4) % Baso % (Auto) (0-2) % Lymph # (Auto) (1.2-4.9) X10*3/uL Tripp # (Auto) (0.1-1.2) X10*3/uL Eos # (Auto) (0.0-0.4) X10*3/uL Baso # (Auto) (0.0-0.2) X10*3/uL Abs Immat Gran (auto) (0.00-0.03) X10*3/uL Absolute Neuts (auto) (2.0-8.3) X10*3/uL Absolute Nucleated RBC (0.0-0.012) X10*3/uL Nucleated RBC % (auto) (0.0-0.2) /100WBC PT (10.8-13.0) SEC INR (0.9-1.1) Sodium 143 (135-145) mmol/L Potassium 3.7 (3.3-5.1) mmol/L Chloride 110 H (96-108) mmol/L Carbon Dioxide 24 (22-29) mmol/L Anion Gap 13 (12-20) BUN 12 (9-16) mg/dL Creatinine 0.54 (0.5-1.4) mg/dL Estim Creat Clear Calc 97.7 Estimated GFR > 60 Random Glucose 102 (60-115) mg/dL Lactic Acid (0.5-2.0) mmol/L Calcium 8.0 L (8.4-10.2) mg/dL Total Bilirubin 0.4 (0.0-1.0) mg/dL Direct Bilirubin 0.2 (0.0-0.5) mg/dL AST 18 (5-31) U/L ALT 16 (0-31) U/L Alkaline Phosphatase 77 (39-117) U/L Total Protein 6.5 (6.5-8.0) g/dL Albumin 4.1 (3.5-5.0) g/dL Lipase 38 (8-78) U/L Urine Color YELLOW Urine Appearance CLEAR Urine pH 6.5 (5.0-8.0) Ur Specific [place] 1.015 (1.005-1.025) Urine Protein NEG (NEG-TRACE) MG/DL Urine Glucose (UA) NEG (NEG) MG/DL Urine Ketones NEG (NEG) MG/DL Urine Blood NEG (NEG) Urine Nitrite NEG (NEG) Ur Leukocyte Esterase TRACE H (NEG) Urine RBC 0 (0) /HPF Urine WBC 1-4 (0-4) /HPF Ur Squamous Epith Cells 1+ /LPF Urine Bacteria NONE /LPF Imaging Data CT scan - abdomen: Radiologist's impression: FINDINGS: LUNG BASES: The visualized lung bases are unremarkable. Bibasilar atelectasis is present, left greater than right. A 3 mm subpleural right lower lobe nodule is present (4: 68). LIVER, GALLBLADDER, AND BILIARY TREE: The liver is normal in size, shape, and attenuation. 4 hepatic cysts are present the largest posteriorly in the right lobe of the liver measuring 3.5 cm. No suspicious solid focal hepatic lesion or biliary ductal dilatation is present. The gallbladder contains layering small calculi with no evidence of wall thickening or obvious pericholecystic inflammatory changes. PANCREAS: Unremarkable. A tiny 2 mm hypodensity seen at the junction of the body and tail may be a tiny cyst or possibly invaginated fat. SPLEEN: Unremarkable. ADRENAL GLANDS: Unremarkable. KIDNEYS AND URETERS: The kidneys are normal in size, shape, and attenuation. No hydronephrosis, hydroureter, or calculi seen. No perinephric stranding. BLADDER: Unremarkable. GASTROINTESTINAL TRACT: A small hiatal hernia is present. The small and large bowel are unremarkable. The appendix is unremarkable. ABDOMINAL WALL: No significant hernia is appreciated. LYMPH NODES: No retroperitoneal lymphadenopathy. VASCULAR: Calcific atherosclerotic changes present in the abdominal aorta without aneurysm or dissection. PELVIC VISCERA: Surgically removed OSSEOUS STRUCTURES: Bilateral hip prostheses are present. Degenerative changes are present throughout the spine. No bony destructive lesions seen. CT/CT abdomen pelvis w con IMPRESSION: 1. No significant abnormality is seen which could be accounting for the patient's right upper quadrant and right lower quadrant pain. 2. There is cholelithiasis but without evidence of cholecystitis. 3. Incidental note made of bibasilar atelectasis and 3 mm right subpleural nodule, hepatic cysts, small hiatal hernia, hysterectomy changes, bilateral hip prostheses and degenerative changes in the spine. ECG Data Attestation: I personally reviewed and interpreted this ECG as follows: (Sinus rhythm, heart rate 71, no ST segment depression or elevation, no T-wave inversion) Discharge Plan Discharge Clinical Impression: Abdominal pain, acute, right lower quadrant Patient Disposition: Admitted As Inpatient [facility] Past Medical History Medical History Arthritis Back pain Cancer Elevated cholesterol Essential tremor Hx of degenerative disc disease Hx pulmonary embolism Postoperative voiding difficulty Primary localized osteoarthritis of left hip Surgical History H/O colonoscopy History of surgical removal of ganglion cyst History of total replacement of left shoulder joint History of total right hip arthroplasty Hx of cataract surgery Hx of cervical discectomy Hx of lumbar discectomy Hx of total hysterectomy with removal of both tubes and ovaries Family History Family History Mother HTN (hypertension), benign Social History Social History Household Members: None Housing: Apartment Alcohol intake: never Smoking Status: Current every day smoker Second Hand Smoke Exposure: No Use of substances other than those prescribed or required for medical reasons: No Advance Directives: No Advance Directives Information Provided: Yes service: Yes Current occupational status: retired Current occupation: Right Handed
[2020-08-30] MEDS: 0.9 % Sodium Chloride 1,000 ML 999 ML IVCONT (18:11)
[2020-08-30] MEDS: Morphine Sulfate 4 MG/ML CARTRIDGE IVPUSH ×2 (18:11→21:40)
[2020-08-30] MEDS: ondansetron HCL 4 MG/2 ML VIAL IVPUSH (18:11)
[2020-08-30 18:13] LABS: MANUAL DIFF FLAG NO
[2020-08-30 18:14] LABS: Basophils Percent Auto 0.3 % (0-2); Eosinophils Absolute Auto 0.1 X10*3/uL (0.0-0.4); Hematocrit 39.3 % (37-47); Hemoglobin 12.7 g/dl (12.0-16.0); Imm Gran Abs Auto 0.01 X10*3/uL (0.00-0.03); Imm Gran Pct Auto 0.2 % (0.0-0.4); Lymphocytes Absolute Auto 1.4 X10*3/uL (1.2-4.9); Lymphocytes Percent Auto 23.6 % (20-40); Mean Corpuscular HGB Conc 32.3 g/dl (31.0-35.0); Mean Corpuscular Hemoglobin 29.5 pg (27.0-33.0); Mean Corpuscular Volume 91.2 fL (80-98); Mean Platelet Volume 9.5 fL (9.4-12.3); Monocytes Absolute Auto 0.6 X10*3/uL (0.1-1.2); Monocytes Percent Auto 9.3 % (2-11); Neutrophils Absolute Auto 3.9 X10*3/uL (2.0-8.3); Neutrophils Percent Auto 64.6 % (45-73); Platelet Count 330 X10*3/uL (160-400); Red Blood Count 4.31 X10*6/uL (4.20-5.50); Red Cell Distribution Width 13.8 % (11.0-16.0); White Blood Count 6.1 X10*3/uL (4.8-10.8)
[2020-08-30 18:16] VITALS: BP 118/76; PULSE 74; RESP 16; O2SAT 98
[2020-08-30 18:26] LABS: Prothrombin Time 11.7 SEC (10.8-13.0)
[2020-08-30 18:39] VITALS: BP 156/79; PULSE 73; RESP 18; O2SAT 94
--- NOTE | 2020-08-30 18:39 | PC.NURSE ---
patient reports small decrease in RLQ abd pain post morphine
[2020-08-30 18:41] LABS: Lactic Acid 1.2 mmol/L (0.5-2.0)
[2020-08-30 18:46] LABS: Lipase 38 U/L (8-78)
[2020-08-30 19:24] LABS: Appearance Urine CLEAR; Color Urine YELLOW; Glucose Urine UA NEG (NEG); Leukocyte Esterase Urine TRACE (NEG); Nitrite Urine NEG (NEG); PH 6.5 (5.0-8.0); Specific Gravity - Urine 1.015 (1.005-1.025); UACC Culture Trigger YES; Urine Blood NEG (NEG); Urine Ketones NEG (NEG); Urine Protein NEG (NEG-TRACE)
[2020-08-30 19:30] LABS: RBC Urine 0 /HPF (0); Squamous Epithelial Cell Urine 1+ /LPF; UACC CULT YES
[2020-08-30 19:34] LABS: Alanine Aminotransferase 16 U/L (0-31); Albumin Level 4.1 g/dL (3.5-5.0); Alkaline Phosphatase 77 U/L (39-117); Anion Gap 13 (12-20); Aspartate Amino Transferase 18 U/L (5-31); Bilirubin Direct 0.2 mg/dL (0.0-0.5); Bilirubin Total 0.4 mg/dL (0.0-1.0); Blood Urea Nitrogen 12 mg/dL (9-16); Carbon Dioxide 24 mmol/L (22-29); Chloride 110 mmol/L (96-108); Creatinine Clr Calc Pharmacy 97.7; Estimated Glomerular Filt Rate > 60; Glucose Random 102 mg/dL (60-115); Potassium 3.7 mmol/L (3.3-5.1); Sodium 143 mmol/L (135-145); Total Protein 6.5 g/dL (6.5-8.0)
[2020-08-30 21:40] VITALS: RESP 18
[2020-08-31] MEDS: Atorvastatin Calcium 20 MG TABLET PO ×2 (01:02→21:46)
[2020-08-31] MEDS: Primidone 50 MG TABLET PO ×5 (01:02→21:46)
[2020-08-31] MEDS: Dextrose 5 % and Lactated Ring 1,000 ML 100 ML IVCONT ×2 (01:02→10:44)
[2020-08-31 02:37] LABS: COVID-19 Test Negative (Negative); IDNOW Serial# 9DD0AD1C
[2020-08-31 02:42] VITALS: RESP 18
[2020-08-31] MEDS: Acetaminophen 325 MG TABLET 650 MG PO ×3 (02:42→18:00)
[2020-08-31] MEDS: Morphine Sulfate 4 MG/ML CARTRIDGE 3 MG IVPUSH (02:42)
[2020-08-31 07:09] VITALS: BP 109/62; PULSE 61; RESP 16; O2SAT 98
[2020-08-31 07:12] LABS: MANUAL DIFF FLAG NO
[2020-08-31 07:17] LABS: Basophils Percent Auto 0.4 % (0-2); Eosinophils Absolute Auto 0.1 X10*3/uL (0.0-0.4); Eosinophils Percent Auto 1.9 % (0-4); Hematocrit 35.1 % (37-47); Hemoglobin 11.4 g/dl (12.0-16.0); Imm Gran Abs Auto 0.01 X10*3/uL (0.00-0.03); Imm Gran Pct Auto 0.2 % (0.0-0.4); Lymphocytes Absolute Auto 1.3 X10*3/uL (1.2-4.9); Lymphocytes Percent Auto 27.8 % (20-40); Mean Corpuscular HGB Conc 32.5 g/dl (31.0-35.0); Mean Corpuscular Hemoglobin 29.7 pg (27.0-33.0); Mean Corpuscular Volume 91.4 fL (80-98); Mean Platelet Volume 9.4 fL (9.4-12.3); Monocytes Absolute Auto 0.6 X10*3/uL (0.1-1.2); Monocytes Percent Auto 12.3 % (2-11); Neutrophils Absolute Auto 2.7 X10*3/uL (2.0-8.3); Neutrophils Percent Auto 57.4 % (45-73); Platelet Count 281 X10*3/uL (160-400); Red Blood Count 3.84 X10*6/uL (4.20-5.50); Red Cell Distribution Width 13.9 % (11.0-16.0); White Blood Count 4.6 X10*3/uL (4.8-10.8)
[2020-08-31 08:13] VITALS: BP 121/61; PULSE 60
[2020-08-31] MEDS: amLODIPine Besylate 10 MG TABLET PO (08:13)
[2020-08-31] MEDS: Enoxaparin Sodium 40 MG/0.4 ML SYRINGE SUBCUT (08:14)
--- NOTE | 2020-08-31 12:52 | MHC.CM.PN ---
Met with patient in regards to discharge planning. Patient lives alone, ambulates with a cane and had no services prior to coming to the hospital. No services anticipated to be needed because patient is not home bound. PCP verified. Patient states her sister has a copy of her HCP. Sister will transport patient home when medically stable. Continue to monitor for d/c needs.
--- NOTE | 2020-08-31 13:10 | PM.HPGS ---
History of Present Illness History of Present Illness Date of Service: 08/31/20 Chief complaint: Abdominal pain Narrative: Tisha Emery is a 70 year old female who presented to the emergency department late yesterday for evaluation and treatment of right lower quadrant abdominal pain. She reports that her symptoms began on 08/28/2020. Initially, the pain was fairly mild and was intermittent. She does stretching and strengthening exercises daily and thought that she had pulled something. Yesterday around 3 in the afternoon, the pain became acutely worse. It remains intermittent but is exacerbated by movement and by pressure. She reports that the area feels swollen. She has not experienced nausea, vomiting, fever or chills. Her appetite has been normal. She does not report diarrhea or constipation. She has no hematuria or dysuria. She has not had similar pain in the past. She last underwent colonoscopy about 7 years ago. There were no significant findings. She has a history of DWAYNE BSO done at [facility] about 11 years ago for an early stage ovarian cancer. In the emergency department, white blood count was normal. A CT scan of the abdomen and pelvis was obtained and showed no evidence of acute surgical pathology or ureteral stone. Review of Systems Constitutional: Constitutional: Reports no additional constitutional complaints Eyes: Eyes: Reports no additional eye complaints ENT: Reports Normal hearing present, Denies dizziness, Denies neck pain and Denies disequilibrium Cardiovascular: Cardiovascular: Denies chest pain, Denies palpitations and Denies dyspnea Respiratory: Respiratory: Denies cough, Denies dyspnea and Denies wheezing Gastrointestinal: Gastrointestinal: Reports as per HPI Genitourinary: Genitourinary: Reports no additional female genitourinary complaints Musculoskeletal: Musculoskeletal: Denies back pain and Denies neck pain Neurologic: Reports Normal hearing present, Denies dizziness and Denies disequilibrium Endocrine: Endocrine: Denies palpitations Hematologic/Lymphatic: Comments: History of pulmonary embolus Allergic/Immunologic: Allergic/Immunologic: Denies wheezing PMFSH Past Medical History Medical History (Updated 08/31/20 @ 13:17 by Shirley Vaelnzuela MD) Arthritis Back pain Cancer Elevated cholesterol Essential tremor Hx of degenerative disc disease Hx pulmonary embolism Postoperative voiding difficulty Primary localized osteoarthritis of left hip Family History Family History Mother HTN (hypertension), benign Surgical History Surgical History (Updated 08/31/20 @ 13:19 by Shirley Valenzuela MD) H/O colonoscopy History of surgical removal of ganglion cyst History of total left hip arthroplasty History of total replacement of left shoulder joint History of total right hip arthroplasty Hx of cataract surgery Hx of cervical discectomy Hx of lumbar discectomy Hx of total hysterectomy with removal of both tubes and ovaries Status post total hip replacement, left Social History Social History Household Members: None Housing: Apartment Alcohol intake: never Smoking Status: Current every day smoker Second Hand Smoke Exposure: No Use of substances other than those prescribed or required for medical reasons: No Advance Directives: No Advance Directives Information Provided: Yes service: Yes Current occupational status: retired Current occupation: Right Handed Meds Allergies Allergy/AdvReac Type Severity Reaction Status Date / Time amoxicillin [AMOXICILLIN] Allergy Severe ANGIOEDEMA, Verified 08/31/20 00:18 tongue swells Active Medications: Current Medications Generic Name Dose Route Start Last Admin Trade Name Freq PRN Reason Stop Dose Admin Acetaminophen 650 mg 08/31/20 00:41 08/31/20 11:27 Acetaminophen 325 Mg Tablet PO 325 mg Q6H PRN Administration Pain, Mild (Pain Scale 1-3) Amlodipine Besylate 10 mg 08/31/20 09:00 08/31/20 08:13 Amlodipine Besylate 10 Mg Tablet PO 10 mg DAILY JUAN Administration Protocol Artificial Tears 1 drop 08/31/20 00:41 Artificial Tears 15 Ml Drops EYE-BOTH Q1H PRN Dry Eyes Atorvastatin Calcium 20 mg 08/31/20 00:45 08/31/20 01:02 Atorvastatin Calcium 20 Mg Tablet PO 20 mg BEDTIME JUAN Administration Enoxaparin Sodium 40 mg 08/31/20 09:00 08/31/20 08:14 Enoxaparin Sodium 40 Mg/0.4 Ml Syringe SUBCUT 40 mg DAILY JUAN Administration Dextrose/Lactated Ringer's 1,000 mls @ 100 mls/hr 08/31/20 00:41 08/31/20 10:44 D5lr IVCONT 100 mls/hr .Q10H JUAN Administration Ondansetron HCl 4 mg 08/31/20 00:41 Ondansetron Hcl 4 Mg/2 Ml Vial IVPUSH Q8H PRN Nausea Primidone 50 mg 08/31/20 09:00 08/31/20 08:13 Primidone 50 Mg Tablet PO 50 mg QID JUAN Administration Home Medications Medication Instructions Recorded Confirmed Last Taken Type amlodipine 10 mg PO DAILY 03/04/20 08/31/20 08/30/20 History pravastatin 20 mg PO BEDTIME 03/04/20 08/31/20 08/29/20 History primidone 50 mg PO QID 03/04/20 08/31/20 08/29/20 History Physical Exam Vital Signs: Vital Signs: Last Vital Signs Temp 98.1 F 08/30/20 16:56 Pulse 60 08/31/20 08:13 Resp 16 08/31/20 07:09 BP 121/61 08/31/20 08:13 Pulse Ox 98 08/31/20 07:09 Body Mass Index 30.2 Const: General: cooperative, healthy appearing and no acute distress HENMT: Head: Yes normocephalic and Yes atraumatic Ears: hearing grossly normal bilaterally Neck: Neck: Yes trachea midline and Yes supple Resp: Effort & Inspection: normal respiratory effort Auscultation: clear to auscultation bilaterally Cardio: Rate: regular rate Rhythm: regular rhythm GI: Other: Soft, nondistended, no palpable masses, normoactive bowel sounds. Localized tenderness present laterally in the right lower quadrant without rebound Rectal Exam - Female: deferred Abdomen image: 1. Skin: Other: Normal color, warm and dry, no rashes Neuro: Cranial nerves: Yes Normal hearing present Psych: Affect: normal affect Insight: Good insight present (Psych) Results Results Labs: Short CBC 08/30/20 08/31/20 Range/Units 18:06 07:02 WBC 6.1 4.6 L (4.8-10.8) X10*3/uL Hgb 12.7 D 11.4 L (12.0-16.0) g/dl Hct 39.3 D 35.1 L (37-47) % Plt Count 330 281 (160-400) X10*3/uL BMP 08/30/20 18:53 Sodium 143 Potassium 3.7 Chloride 110 H Carbon Dioxide 24 BUN 12 Creatinine 0.54 Calcium 8.0 L Liver Function 08/30/20 Range/Units 18:53 Total Bilirubin 0.4 (0.0-1.0) mg/dL Direct Bilirubin 0.2 (0.0-0.5) mg/dL AST 18 (5-31) U/L ALT 16 (0-31) U/L Alkaline Phosphatase 77 (39-117) U/L Albumin 4.1 (3.5-5.0) g/dL Urine 08/30/20 Range/Units 19:16 Urine Color YELLOW Urine Appearance CLEAR Urine pH 6.5 (5.0-8.0) Ur Specific [place] 1.015 (1.005-1.025) Urine Protein NEG (NEG-TRACE) MG/DL Urine Glucose (UA) NEG (NEG) MG/DL Assessment and Plan (1) Abdominal pain, acute, right lower quadrant: Status: Acute 70-year-old female with intermittent, worsening right lower quadrant abdominal pain, etiology unclear. No inflammatory changes are noted involving the cecum or appendix and there is no other acute change noted in the right lower quadrant on CT scan of the abdomen and pelvis. White blood count is normal. She is afebrile. Plan at this time is to continue with observation, clear liquid diet, and pain management. If symptoms persist and etiology remains unclear, repeat CT scan and/or trial of empiric antibiotic therapy will be content considered. VTE prophylaxis with Lovenox has been initiated. Ambulate as tolerated.
[2020-08-31 15:22] VITALS: BP 139/71; PULSE 68; RESP 14; O2SAT 96
[2020-08-31 15:30] LABS: Basophils Percent Auto 0.5 % (0-2); Eosinophils Absolute Auto 0.1 X10*3/uL (0.0-0.4); Eosinophils Percent Auto 1.3 % (0-4); Hematocrit 37.9 % (37-47); Hemoglobin 12.1 g/dl (12.0-16.0); Imm Gran Abs Auto 0.02 X10*3/uL (0.00-0.03); Imm Gran Pct Auto 0.3 % (0.0-0.4); Lymphocytes Absolute Auto 1.1 X10*3/uL (1.2-4.9); MANUAL DIFF FLAG NO; Mean Corpuscular HGB Conc 31.9 g/dl (31.0-35.0); Mean Corpuscular Hemoglobin 29.3 pg (27.0-33.0); Mean Corpuscular Volume 91.8 fL (80-98); Mean Platelet Volume 9.4 fL (9.4-12.3); Monocytes Absolute Auto 0.6 X10*3/uL (0.1-1.2); Neutrophils Absolute Auto 4.5 X10*3/uL (2.0-8.3); Neutrophils Percent Auto 71.9 % (45-73); Platelet Count 305 X10*3/uL (160-400); Red Blood Count 4.13 X10*6/uL (4.20-5.50); Red Cell Distribution Width 13.9 % (11.0-16.0); White Blood Count 6.2 X10*3/uL (4.8-10.8)
--- NOTE | 2020-08-31 16:07 | P.EN_ITS ---
Event Note Date of Service: 08/31/20 Event Note: She reports no improvement in her right lower quadrant abdominal p ain. She is tolerating clear liquids. She does not have any fever, chills nausea or vomiting. She is not feeling hungry. On examination, she is alert and is in no distress Abdomen soft, nondistended, tender more diffusely in the right lower quadrant extending to just above the level the umbilicus Impression: Persistent right lower quadrant abdominal pain, etiology unclear. Possible etiologies include appendicitis and colitis. Will repeat CBC with diff and CT scan of abdomen and pelvis. We briefly discussed the possibility of appendicitis and of treatment options including antibiotic therapy and surgery. Her because of her prior extensive pelvic surgery, there is a higher likelihood that open surgery would be required if appendectomy is undertaken. She understands this. We will await results of the repeat CBC and CT scan.
[2020-08-31 17:50] VITALS: BP 170/73; PULSE 80; RESP 14; TEMP 36.5; O2SAT 95
--- NOTE | 2020-08-31 18:48 | PM.EVENT ---
Event Note Date of Service: 08/31/20 Event Note: Repeat CT scan of the abdomen and pelvis shows changes consistent with mild ascending colitis. White blood count remains normal. Discussed with her. We will begin IV antibiotics, advanced to low residue diet.
[2020-08-31 19:39] VITALS: BP 147/72; PULSE 73; RESP 18; TEMP 36.7; O2SAT 95
[2020-08-31] MEDS: levoFLOXacin/D5W 500 MG/100 ML PIGGYBACK 100 MG IV (20:29)
[2020-08-31] MEDS: metroNIDAZOLE/NS 500 MG/100 ML PIGGYBACK 100 MG IV (21:45)
[2020-09-01] VITALS: RESP 18; O2SAT 94
[2020-09-01 03:23] VITALS: BP 143/61; PULSE 106; RESP 20; TEMP 36.6; O2SAT 94
[2020-09-01 03:37] VITALS: BP 135/63; PULSE 73; RESP 18; TEMP 36.9; O2SAT 94
[2020-09-01] MEDS: metroNIDAZOLE/NS 500 MG/100 ML PIGGYBACK 100 MG IV (04:44)
[2020-09-01] MEDS: ondansetron HCL 4 MG/2 ML VIAL IVPUSH (04:44)
[2020-09-01] MEDS: Dextrose 5 % and Lactated Ring 1,000 ML 100 ML IVCONT (06:05)
[2020-09-01 07:09] LABS: MANUAL DIFF FLAG NO
[2020-09-01 07:17] LABS: Basophils Percent Auto 0.6 % (0-2); Eosinophils Absolute Auto 0.1 X10*3/uL (0.0-0.4); Eosinophils Percent Auto 1.4 % (0-4); Hematocrit 37.3 % (37-47); Imm Gran Abs Auto 0.01 X10*3/uL (0.00-0.03); Imm Gran Pct Auto 0.2 % (0.0-0.4); Lymphocytes Absolute Auto 0.9 X10*3/uL (1.2-4.9); Lymphocytes Percent Auto 18.1 % (20-40); Mean Corpuscular HGB Conc 32.2 g/dl (31.0-35.0); Mean Corpuscular Hemoglobin 29.1 pg (27.0-33.0); Mean Corpuscular Volume 90.3 fL (80-98); Mean Platelet Volume 9.6 fL (9.4-12.3); Monocytes Absolute Auto 0.5 X10*3/uL (0.1-1.2); Monocytes Percent Auto 10.3 % (2-11); Neutrophils Absolute Auto 3.5 X10*3/uL (2.0-8.3); Neutrophils Percent Auto 69.4 % (45-73); Platelet Count 311 X10*3/uL (160-400); Red Blood Count 4.13 X10*6/uL (4.20-5.50); Red Cell Distribution Width 13.6 % (11.0-16.0); White Blood Count 5.1 X10*3/uL (4.8-10.8)
[2020-09-01 08:59] VITALS: BP 119/47; PULSE 75
[2020-09-01] MEDS: Primidone 50 MG TABLET PO (08:59)
[2020-09-01] MEDS: amLODIPine Besylate 10 MG TABLET PO (08:59)
[2020-09-01] MEDS: Enoxaparin Sodium 40 MG/0.4 ML SYRINGE SUBCUT (09:00)
--- NOTE | 2020-09-01 10:59 | PC.NURSE ---
PT SEEN BY SURGICAL SERVICE, WILL DO A PO TRIAL, IF TOLERATED POTENTIAL DC
--- NOTE | 2020-09-01 11:41 | PM.PNGS ---
Subjective Subjective Date of Service: 09/01/20 Interval history: Feels better this morning. Pain is still present, but has diminished. Has not taken any additional pain medication. Diet was advanced to solid last night, but she has not tried any solid food yet. Physical Exam Vital Signs: Vital Signs: Last Vital Signs Temp 98.5 F 09/01/20 03:37 Pulse 75 09/01/20 08:59 Resp 18 09/01/20 03:37 BP 119/47 L 09/01/20 08:59 Pulse Ox 94 09/01/20 03:37 Body Mass Index 30.2 Const: General: cooperative, comfortable and no acute distress Resp: Effort & Inspection: normal respiratory effort Auscultation: clear to auscultation bilaterally Cardio: Rate: regular rate Rhythm: regular rhythm GI: Other: Soft, nondistended, bowel sounds active, tender fairly diffusely right lower quadrant improved from yesterday Progress Note: A&P Assessment and plan (1) Abdominal pain, acute, right lower quadrant: Status: Acute Assessment and Plan: Repeat CT of the abdomen and pelvis was done without contrast yesterday. This was interpreted as consistent with colitis involving the right colon. No evidence of appendicitis. [place] and metronidazole were initiated last night. She feels better today. If she is able to tolerate a solid diet, will switch to p.o. antibiotics and likely will discharge later today. Fall Risk Details Current Medications: Current Medications Generic Name Dose Route Start Last Admin Trade Name Freq PRN Reason Stop Dose Admin Acetaminophen 650 mg 08/31/20 00:41 08/31/20 18:00 Acetaminophen 325 Mg Tablet PO 650 mg Q6H PRN Administration Pain, Mild (Pain Scale 1-3) Amlodipine Besylate 10 mg 08/31/20 09:00 09/01/20 08:59 Amlodipine Besylate 10 Mg Tablet PO 10 mg DAILY JUAN Administration Protocol Artificial Tears 1 drop 08/31/20 00:41 Artificial Tears 15 Ml Drops EYE-BOTH Q1H PRN Dry Eyes Atorvastatin Calcium 20 mg 08/31/20 00:45 08/31/20 21:46 Atorvastatin Calcium 20 Mg Tablet PO 20 mg BEDTIME JUAN Administration Enoxaparin Sodium 40 mg 08/31/20 09:00 09/01/20 09:00 Enoxaparin Sodium 40 Mg/0.4 Ml Syringe SUBCUT 40 mg DAILY JUAN Administration Levofloxacin 500 mg in 100 mls @ 100 mls/hr 08/31/20 19:00 08/31/20 21:29 Levaquin IV Infused Q24H JUAN Infusion Metronidazole 500 mg in 100 mls @ 100 mls/hr 08/31/20 20:00 09/01/20 06:00 Flagyl IV Infused Q8H JUAN Infusion Ondansetron HCl 4 mg 08/31/20 00:41 09/01/20 04:44 Ondansetron Hcl 4 Mg/2 Ml Vial IVPUSH 4 mg Q8H PRN Administration Nausea Oxycodone HCl 5 mg 08/31/20 18:45 Oxycodone Hcl Immed Release 5 Mg Tablet PO Q4H PRN Pain, Moderate (Pain Scale 4-6 Primidone 50 mg 08/31/20 09:00 09/01/20 08:59 Primidone 50 Mg Tablet PO 50 mg QID JUAN Administration Time Spent With Patient Time: Total time spent is greater than 50% in coordination of care (as documented) at patient's floor/unit and/or counseling patient: Time with patient: less than 15 minutes
--- NOTE | 2020-09-01 13:26 | PM.DS ---
DS: Providers Provider Date of Service: 09/01/20 Date of admission: 08/30/20 22:02 Primary care physician: Yolanda Davis DO DS: Diagnosis Discharge Diagnosis (1) Abdominal pain, acute, right lower quadrant: Status: Acute Problem details: This is a 70-year-old female who had onset of right lower quadrant abdominal discomfort 2 days prior to admission. Initially, it was fairly mild but became acutely worse on the day of admission. Initial workup in the emergency department revealed the presence of significant right lower quadrant tenderness. White blood count and LFTs were normal and CT scan of the abdomen and pelvis did not reveal any acute findings. In particular, there is no evidence of appendicitis. Because of the significant tenderness, she was admitted for observation. White blood count remained normal. A repeat CT scan of the abdomen and pelvis was obtained on 09/01/2019 and demonstrated evidence of focal colitis involving the right colon. Antibiotic therapy was initiated. By the following day, her pain was significantly improved though not resolved. She was able to tolerate a solid diet without exacerbation of pain. She will follow-up with her primary care physician, Dr. Alejandra Davis, and will discuss potential need for GI referral with her. She will follow up with General Surgery, Dr. Shiraz Tijerina. She is allergic to penicillin and will be discharged on Levaquin and metronidazole. I discussed potential neurologic and musculoskeletal affects with her and asked her to call if she develops any new symptoms. DS: Medications Discharge Medications Home Medications: Home Medications Medication Instructions Recorded Confirmed amlodipine 10 mg PO DAILY 03/04/20 08/31/20 pravastatin 20 mg PO BEDTIME 03/04/20 08/31/20 primidone 50 mg PO QID 03/04/20 08/31/20 DS: Summary Status at Discharge Functional status at discharge: uses cane/walker Overall status at discharge: patient is not back to baseline (Still has right lower quadrant pain, but significantly improved) Time Spent with Patient Time attestation: Total time spent providing and/or coordinating discharge services: Discharge coordination time: Less than 30 minutes Physical Exam Vital Signs: Vital Signs: Last Vital Signs Temp 98.5 F 09/01/20 03:37 Pulse 75 09/01/20 08:59 Resp 18 09/01/20 03:37 BP 119/47 L 04/04/21 08:59 Pulse Ox 94 09/01/20 03:37 Body Mass Index 30.2 Const: Other: Alert, comfortable, in no acute distress HENMT: Other: Normocephalic and atraumatic Resp: Other: Clear to auscultation Cardio: Other: Regular in rate and rhythm GI: Other: Soft, nondistended, normal bowel sounds, mild to moderate tenderness right lower quadrant extending to just above umbilicus Skin: Other: Normal color, warm and dry DS: Data Data Completed and Pending Completed studies during hospitalization [Text1]: Procedures Replacement of Left Hip Joint with Synthetic Substitute, Uncemented, Open Approach (04/01/20) Labs on day of discharge: Laboratory Results - last 24 hr 08/31/20 09/01/20 15:21 06:30 WBC 6.2 5.1 RBC 4.13 L 4.13 L Hgb 12.1 12.0 Hct 37.9 37.3 MCV 91.8 90.3 MCH 29.3 29.1 MCHC 31.9 32.2 RDW 13.9 13.6 Plt Count 305 311 MPV 9.4 9.6 Immature Gran % (Auto) 0.3 0.2 Neut % (Auto) 71.9 69.4 Lymph % (Auto) 17.0 L 18.1 L [place] % (Auto) 9.0 10.3 Eos % (Auto) 1.3 1.4 Baso % (Auto) 0.5 0.6 Lymph # (Auto) 1.1 L 0.9 L [place] # (Auto) 0.6 0.5 Eos # (Auto) 0.1 0.1 Baso # (Auto) 0.0 0.0 Abs Immat Gran (auto) 0.02 0.01 Absolute Neuts (auto) 4.5 3.5 Absolute Nucleated RBC 0.000 0.000 Nucleated RBC % (auto) 0.0 0.0 Preliminary micro results at discharge 08/30/20 18:19 Blood Culture - Preliminary Blood - Venous No growth after 24 hours. 08/30/20 18:06 Blood Culture - Preliminary Blood - Venous No growth after 24 hours. Discharge Plan Discharge Patient Disposition: Home, Self-Care Referrals: Yolanda Maddox DO [Primary Care Provider] - Shiraz Tijerina MD [Physician] - (follow up abdominal pain, colitis) Discharge Medications: New levofloxacin 500 mg tablet 500 mg PO DAILY Qty: 6 RF: 0 metronidazole 500 mg tablet 500 mg PO TID Qty: 18 RF: 0 Continued primidone 50 mg tablet 50 mg PO QID RF: 0 amlodipine 10 mg tablet 10 mg PO DAILY RF: 0 pravastatin 20 mg tablet 20 mg PO BEDTIME RF: 0 Discharge Orders: Discharge Order (Routine); Ordered 09/01/20 Ordered By: Shirley Valenzuela Diet: advance to usual diet Activity on Discharge: No heavy lifting Stand Alone Forms: Patient Portal Discharge page Activity Restrictions/Additional Instructions: Avoid strenuous activity for the next week then advanced to your usual activity level as tolerated if you her abdominal symptoms have resolved. Care Plan Goals: Resolution of abdominal pain, return to normal level of function Health Concerns: Right lower quadrant abdominal pain, colitis Plan of Treatment: Complete course of antibiotic therapy
--- NOTE | 2020-09-01 14:17 | MHC.CM.PN ---
PATIENT IS DISCHARGED HOME WITH NO NEED FOR SERVICES. SISTER TO TRANSPORT. RN AWARE OF PLAN.
== END 2020-09-01 14:58 | disposition home or self-care (01) | DRG 392 ==
LOC: HO.ED 21:38 → HO.EDOVER 22:13 → HO.S3 09-01 14:05 → HO.EDOVER 09-02 07:21
PROVIDERS: Admitting Provider Surgery; Emergency Provider Emergency Medicine; PCP Internal Medicine; Visit Provider Surgery
DX: R10.31 Right lower quadrant pain (principal); Z20.822 Contact with and (suspected) exposure to COVID-19; Z96.642 Presence of left artificial hip joint; Z79.899 Other long term (current) drug therapy
CPT/HCPCS: 36415; 74176; 74177; 80048; 80076; 81001; 83605; 83690; 85025; 85610; 87040; 87086; 87635; 93005; 96374; 96375; 99219; 99285; J1650; J1956; J2270; J2405; Q9967

== ENCOUNTER → 2020-10-08 13:59 | Outpatient (BNVA) | payer OTHER, SELFPAY | PROVIDERS: PCP Internal Medicine; Referring Provider Surgery; Visit Provider Surgery | DX: K52.9 Noninfective gastroenteritis and colitis, unspecified (principal) | CPT/HCPCS: 99212 ==

== ENCOUNTER → 2021-04-03 09:00 | Outpatient (BNVA) | payer OTHER, SELFPAY | PROVIDERS: PCP Internal Medicine; Visit Provider Orthopaedic Surgery | DX: M21.061 Valgus deformity, not elsewhere classified, right knee (principal); R29.898 Other symptoms and signs involving the musculoskeletal system; Z96.643 Presence of artificial hip joint, bilateral | CPT/HCPCS: 99212 ==

== ENCOUNTER 2023-04-09 07:29 | Outpatient (AMB) | payer OTHER, SELFPAY ==
--- NOTE | 2023-04-09 07:36 | MHC.PC.OV ---
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, medications, high bp, tremors Intake Note: Pt is here today as a [facility]: also for meds, elevated b/p and tremors Allergies amoxicillin [AMOXICILLIN] Allergy (Severe, Verified 04/09/23 07:37) ANGIOEDEMA, tongue swells Medication List - Last Reconciled 04/09/23 by Ching López MD amlodipine 10 mg PO DAILY glucosamine HCl-vitamin D3 1,500-200 mg-unit tabs PO olmesartan 5 mg PO DAILY pravastatin 20 mg PO BEDTIME primidone 250 mg PO BEDTIME vitamin B complex (B Complex-Vitamin B12 tablet) 1 tab PO DAILY Tobacco use date assessed: 04/09/23 Fall risk assessment: No Falls in past year Last assessed Fall Risk: 04/09/23 Dental Screening Dental Screen Date: 04/09/23 Did you have a dental visit in the last 12 months?: Yes Did you have a dental problem in the last 6 months where you did not have access to dental care?: No Was dental information given to patient?: Patient has dentist 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 Hypertension hyperlipidemia controlled on medications. Patient follows up with neurologist annually for essential tremor controlled on primidone. Pt c/o R shoulder pain after working out in the gym 1 month ago, worse when reaching overhead or laying on the right side. Patient had a cortisone injection a few years ago with some relief. Patient denies any weakness in right upper extremity. [facility] Medical History (Updated 04/09/23 @ 08:29 by Ching López MD) Primary localized osteoarthritis of left hip Cancer Hx of degenerative disc disease Back pain Arthritis Essential tremor Hx pulmonary embolism Surgical History Status post total hip replacement, left History of total left hip arthroplasty Hx of cataract surgery History of total replacement of left shoulder joint History of surgical removal of ganglion cyst Hx of lumbar discectomy Hx of cervical discectomy History of total right hip arthroplasty Hx of total hysterectomy with removal of both tubes and ovaries H/O colonoscopy Family History Mother HTN (hypertension), benign Father Mental health disorder Social History (Updated 04/09/23 @ 08:14 by Ching López MD) Household Members: None Household Members Other:: lives alone, 2 sisters in the area, retired marine Housing: Apartment Are you a primary healthcare network pricing consultant to a significant other at home: No Do you presently have visiting nurse or other home services: No Alcohol intake: never Patient Tobacco Use Status: Former Tobacco user e-Cigarette/Vaping Use: Never Used Second Hand Smoke Exposure: No service: Yes Current occupational status: retired Current occupation: Right Handed Cognitive needs: No Hearing needs: No Vision needs: No Questionnaire PHQ-9 Over the last 2 weeks, how often have you been bothered by any of the following problems? 1. Little interest or pleasure in doing things: not at all 2. Feeling down, depressed, or hopeless: several days 3. Trouble falling or staying asleep, or sleeping too much: not at all 4. Feeling tired or having little energy: not at all 5. Poor appetite or overeating: not at all 6. Feeling bad about yourself - or that you are a failure or have let yourself or your family down: not at all 7. Trouble concentrating on things, such as reading the newspaper or watching television: not at all 8. Moving or speaking so slowly that other people could have noticed. Or the opposite - being so fidgety or restless that you have been moving around a lot more than usual: not at all 9. Thoughts that you would be better off or of hurting yourself in some way: not at all Total score: 1 Source: Developed by Drs. Steve Zuñiga, Lupe Vines, Roderick Lundy and colleagues, with an educational jerome from [employer]. Thrive Questionnaire Date Thrive assessed: 04/09/23 I am a: Patient What is your living situation today?: I have a steady place to live Within the past 12 months, did the food you bought not last and you didn't have the money to get more?: Never true Within the past 12 months, did you worry whether your food would run out before you got money to buy more?: Never true Do you have trouble paying for medicines?: No Do you have trouble getting transportation to medical appointments?: No Do you have trouble paying your heating and electricity bill?: No Do you have trouble taking care of your child, family member or friend?: No Do you have trouble with day-to-day activities such as bathing, preparing meals, shopping, managing finances, etc.?: No Are you currently unemployed and looking for a job?: No Are you interested in more education?: No AUDIT C Alcohol Use Questionnaire (AUDIT-C) 1. How often do you have a drink containing alcohol?: Never Total Score: 0 ADI-7 AMB Questionnaire ADI-7 Date ADI - 7 assessed: 04/09/23 Feeling nervous, anxious, or on edge: 0 = Not at all Not being able to stop or control worryin = Not at all Worrying too much about different things: 0 = Not at all Trouble relaxin = Not at all Being so restless that it is hard to sit still: 0 = Not at all Becoming easily annoyed or irritable: 0 = Not at all Feeling afraid as if something awful might happen: 0 = Not at all Total ADI-7 score (0-4 normal; 5-9 mild; 10-14 moderate; 15-21 severe): 0 Source: Developed by Drs. Steve Zuñiga, Lupe Vines, Roderick Lundy and colleagues, with an educational jerome from [employer]. Review of Systems Const All systems reviewed & are unremarkable except as noted in HPI and below Reports no additional complaints Eyes Reports no additional complaints ENT Reports no additional complaints Card Reports no additional complaints Resp Reports no additional complaints GI Reports no additional complaints Reports no additional complaints Physical exam (Primary Care) Vital Signs: Last Vital Signs Pulse 64 04/09/23 07:38 BP 130/80 04/09/23 07:38 Pulse Ox 98 04/09/23 07:38 Oxygen Delivery Method Room Air 04/09/23 07:38 BMI result Body Mass Index 27.4 Tobacco/Smoking Status: Tobacco use Status Tobacco use date assessed 04/09/23 04/09/23 07:48 Patient Tobacco Use Status Former Tobacco user 04/09/23 07:48 e-Cigarette/Vaping Use Never Used 04/09/23 07:48 PHQ-9: PHQ-9 Score PHQ-9: Total score 1 04/09/23 07:55 Thrive Assessment: Date of Thrive Assessment Date Thrive assessed 04/09/23 04/09/23 07:53 Const General: no acute distress HENMT Head: Yes normal to inspection Ears: hearing grossly normal bilaterally Face and sinus: Yes normal facial exam Mouth: Normal oral and palatal mucosa present Throat: Yes posterior oropharynx normal Eyes General: appearance normal, both eyes and all related structures Neck Neck: Yes no lymphadenopathy and Yes supple Resp Effort & Inspection: normal respiratory effort Auscultation: clear to auscultation bilaterally Cardio Rhythm: regular rhythm Heart sounds: S1 normal heart sound present and S2 normal heart sound present GI Inspection: Yes normal to inspection Palpation (GI): Soft to palpation Percussion: Yes normal to percussion Auscultation: normal bowel sounds Extrem Other: Anterior aspect tenderness no soft tissue swelling, decreased range of motion with adduction and reaching overhead General: Yes no clubbing, cyanosis or edema Assessment and Plan Assessment & Plan (1) Ex-smoker: Comment: in lung ca screen program Vashti Shepard, CT scan 04/12/23 Code(s): Z87.891 - Personal history of nicotine dependence (2) Essential tremor: Comment: f/u Code(s): G25.0 - Essential tremor Plan: Continue primidone (3) HTN (hypertension): Code(s): I10 - Essential (primary) hypertension Plan: Continue current medications (4) Hyperlipidemia: Code(s): E78.5 - Hyperlipidemia, unspecified Plan: Continue statin , return for fasting blood work (5) H/O colonoscopy: Comment: HX OF POLYPS, negative 2020, recheck due 2025 Code(s): Z98.890 - Other specified postprocedural states (6) Osteoporosis: Comment: DEXA Vashti 2022, vit D tx Code(s): M81.0 - Age-related osteoporosis without current pathological fracture Plan: continue vitamin-D and check the level, weight-bearing exercises discussed with the patient (7) Shoulder pain, right: Code(s): M25.511 - Pain in right shoulder Plan: Check x-rays, meloxicam for 10 days is prescribed and patient will be referred for physical therapy Orders: Orders Complete Blood Count Auto Diff Today E78.5 - Hyperlipidemia, unspecified, I10 - Essential (primary) hypertension, Z98.890 - Other specified postprocedural states Lipid Panel Today E78.5 - Hyperlipidemia, unspecified, I10 - Essential (primary) hypertension, Z98.890 - Other specified postprocedural states XR shoulder RT 1V Today M25.511 - Pain in right shoulder PT Evaluation and Treatment Today M25.511 - Pain in right shoulder MM screening mammo BI Today Z12.31 - Encounter for screening mammogram for malignant neoplasm of breast Comprehensive Met. Panel Today E78.5 - Hyperlipidemia, unspecified, I10 - Essential (primary) hypertension, Z98.890 - Other specified postprocedural states TSH reflex Free T4 Today E78.5 - Hyperlipidemia, unspecified, I10 - Essential (primary) hypertension, Z98.890 - Other specified postprocedural states Vitamin D 25-OH Total Today E78.5 - Hyperlipidemia, unspecified, I10 - Essential (primary) hypertension, Z98.890 - Other specified postprocedural states Referrals Neurology Referral G25.0 - Essential tremor Thoracic Surgery Referral Z87.891 - Personal history of nicotine dependence Medications: New olmesartan 5 mg PO DAILY 90 tabs 3RF pravastatin 20 mg PO BEDTIME 90 tabs 3RF meloxicam 15 mg PO DAILY 10 tabs 0RF amlodipine 10 mg PO DAILY 90 tabs 3RF Coding Level of Care Code New Pt Level 4 (98078) Diagnoses Ex-smoker Z87.891 Essential tremor G25.0 HTN (hypertension) I10 Hyperlipidemia E78.5 H/O colonoscopy Z98.890 Osteoporosis M81.0 Shoulder pain, right M25.511
[2023-04-09 07:38] VITALS: BP 130/80; PULSE 64; O2SAT 98; BMI 27.4
== END 2023-04-09 08:30 | disposition home or self-care (01) ==
PROVIDERS: PCP Internal Medicine; Visit Provider Internal Medicine
DX: Z87.891 Personal history of nicotine dependence (principal); G25.0 Essential tremor; I10 Essential (primary) hypertension; E78.5 Hyperlipidemia, unspecified; Z98.890 Other specified postprocedural states; M81.0 Age-related osteoporosis without current pathological fracture; M25.511 Pain in right shoulder
CPT/HCPCS: 99204

== ENCOUNTER 2023-04-09 08:25 | Outpatient (REF) | payer OTHER, SELFPAY ==
--- NOTE | ~2023-04-09 | XR_ITS ---
EXAMINATION: XR SHOULDER, RIGHT CLINICAL INFORMATION: Right shoulder pain COMPARISON: None available. TECHNIQUE: AP external rotation, Grashey, scapular Y, and axillary views of the right shoulder. FINDINGS: The bones and soft tissues are normal. No fracture. Glenohumeral and acromioclavicular alignment is anatomic with normal joint space. No abnormal soft tissue calcifications. XR/XR shoulder RT min 2V IMPRESSION: No acute bony pathology.
== END 2023-04-09 08:26 | disposition home or self-care (01) ==
LOC: HO.HMGCX 08:25
PROVIDERS: PCP Internal Medicine; Visit Provider Internal Medicine
DX: M25.511 Pain in right shoulder (principal)
CPT/HCPCS: 73030

== ENCOUNTER 2023-04-24 08:04 | Outpatient (REF) | payer OTHER, SELFPAY ==
[2023-04-24 11:02] LABS: MANUAL DIFF FLAG NO
[2023-04-24 11:05] LABS: Basophils Percent Auto 0.5 % (0-2); Eosinophils Absolute Auto 0.1 X10*3/uL (0.0-0.4); Eosinophils Percent Auto 1.7 % (0-4); Hematocrit 37.5 % (37.0-47.0); Hemoglobin 12.1 g/dl (12.0-16.0); Imm Gran Abs Auto 0.03 X10*3/uL (0.00-0.03); Imm Gran Pct Auto 0.5 % (0.0-0.4); Lymphocytes Absolute Auto 1.3 X10*3/uL (1.2-4.9); Lymphocytes Percent Auto 22.1 % (20-40); Mean Corpuscular HGB Conc 32.3 g/dl (31.0-35.0); Mean Corpuscular Hemoglobin 29.7 pg (27.0-33.0); Mean Corpuscular Volume 91.9 fL (80.0-98.0); Mean Platelet Volume 9.5 fL (9.4-12.3); Monocytes Absolute Auto 0.5 X10*3/uL (0.1-1.2); Monocytes Percent Auto 8.5 % (2-11); Neutrophils Percent Auto 66.7 % (45-73); Platelet Count 510 X10*3/uL (160-400); Red Blood Count 4.08 X10*6/uL (4.20-5.50); Red Cell Distribution Width 13.3 % (11.0-16.0)
[2023-04-24 11:34] LABS: Alanine Aminotransferase 15 U/L (0-31); Albumin Level 4.2 g/dL (3.5-5.0); Alkaline Phosphatase 66 U/L (39-117); Anion Gap 13 (12-20); Aspartate Amino Transferase 19 U/L (5-31); Bilirubin Total 0.3 mg/dL (0.0-1.0); Blood Urea Nitrogen 17 mg/dL (9-16); Calcium 9.2 mg/dL (8.4-10.2); Carbon Dioxide 25 mmol/L (22-29); Chloride 109 mmol/L (96-108); Cholesterol 191 mg/dL (<200); Estimated Glomerular Filt Rate > 60; Glucose Random 94 mg/dL (60-115); HDL Cholesterol 45 mg/dL (>40); LDL Cholesterol Calculated 123 mg/dL (<100); Potassium 4.9 mmol/L (3.3-5.1); Sodium 142 mmol/L (135-145); Total Protein 7.1 g/dL (6.5-8.0); Triglycerides 115 mg/dL (<150)
[2023-04-24 11:50] LABS: Vitamin D 25-OH Total 96.5 ng/mL (>30)
== END 2023-04-24 08:05 | disposition home or self-care (01) ==
LOC: HO.HMGCLDS 08:04
PROVIDERS: PCP Internal Medicine; Visit Provider Internal Medicine
DX: I10 Essential (primary) hypertension (principal); E78.5 Hyperlipidemia, unspecified; Z98.890 Other specified postprocedural states
CPT/HCPCS: 36415; 80053; 80061; 82306; 84443; 85025

== ENCOUNTER 2023-06-22 09:00 | Outpatient (RCR) | payer OTHER, SELFPAY ==
--- NOTE | 2023-05-18 10:51 | MHC.PT.EP ---
[facility] [place] Office [place] [facility] [place] Office [address] Faviola Segovia [address] [phone] F: [phone] F: [phone] F: [phone] F: [phone] Physical Therapy Plan of Care Date of Evaluation: 05/18/23 Date of Surgery: Diagnosis: Rt SHOULDER PAIN Assessment: 73 YO FEMALE REF TO PT W APPROX 1 MONTH H/O Rt SH / SCAPULAR MM/UPPER TRAP PAIN AFTER PERF SEATED OVERHEAD PRESSES AT HER GYM. SHE IS Rt HAND DOMINANT, H/O Lt REVERSE TSA, AND RESIDES ALONE IN A 1 LEVEL HOME. THE Pt HAS DECR CERVICAL AND Rt SH AROM DUE TO PAIN, (-) Rt SH XRAY, (+) SOFT TISSUE TIGHTNESS AND IRRIT IN Rt SH/ SCAP COMPLEX, (+) STRENGTH DEFICITS IN Rt SCAP/ POST RC, AND PAIN LIMITING FUNCTIONAL MOB TOLERANCE. AT THIS TIME, THER IS (-) APPREHENSION OR INSTABILITY IN Rt SH. THE Pt WOULD BENEFIT FROM PT TO ADDRESS THE ABOVE AND ASSIST HER IN RESUMING HER PRIOR LEVEL OF FUNCTION/ EXERCISE. Frequency and Duration: The patient will be seen 2 x WK x 5 WKS Short Term Goals: * Pt INDEP SELF CORRECT POSTURE W PROPER SCAP RETRACTION ACTIVATION *R T SHOULDER PAIN DECR TO 2-3/10 AT MAX IMPROVE Rt SH AROM *IMPROVE CERV AROM Continuous Process Coffee Roaster Goals: *Pt INDEP W PROGRESSIVE HEP AND SELF-SX MGMT TECHN Pt RESUME REG ADLs / GYM WORKOUTS/ FITNESS WALKING , EVIDENT W IMPROVED SPADI SCORE BY 8-10 POINTS Pt INCR Rt UE STRENGTH BY 1 GRADE Treatment Plan: Modalities to reduce pain, spasms and effusion. Manual therapy to restore motion and function. Therapeutic exercise to improve strength and flexibility. Neuromuscular re-education for posture and balance. Therapeutic activities to return to functional activities of daily living. Electronically signed by: CATHERINE CORRIGAN,PT Please sign and return to therapist. Thank you for your referral.
--- NOTE | 2023-06-23 07:31 | MHC.PT.DC ---
[facility] [place] Office [place] Office [place] Office [address] [address] [phone] F: [phone] F: [phone] F: [phone] F: [phone] Physical Therapy Discharge Report Diagnosis: Rt SHOULDER PAIN Date of Surgery: DOI 04/04 Right shoulder Date of Evaluation: 05/18/23 Date of Discharge: 06/23/23 Treatments to Date: 9 Cancellations to Date: 1 No Shows to Date: 0 Discharge Status: Achieved Goals Improved Function Independent with HEP Discharge Summary: SUSAN HAS PROGRESSED VERY WELL IN PT-> SHE IS INDEP AND COMPLIANT WITH HER HEP AND ULTIMATELY HAS BEEN PAINFREE W REG ADLS. THE Pt IS INDEP W POSTURAL SELF CORRECTION AND HAS IMPROVED STABILITY IN HER Rt SH COMPLEX- HER SPADI SCORE IMPROVED FROM 76/130 TO 5/130 AT DISCHARGE. SHE HAS MET HER PT GOALS AT THIS TIME. Electronically signed by: CATHERINE CORRIGAN,PT Please sign and return to therapist. Thank you for your referral.
== END 2023-06-23 07:30 | disposition home or self-care (01) ==
LOC: HO.PT 09:00
PROVIDERS: PCP Internal Medicine; Visit Provider Internal Medicine
DX: M25.511 Pain in right shoulder (principal)
CPT/HCPCS: 97110; 97140; 97162

== ENCOUNTER 2023-10-08 09:55 | Outpatient (AMB) | payer OTHER, SELFPAY ==
[2023-10-08 10:07] VITALS: BP 122/76; PULSE 79; O2SAT 97; BMI 26.4
--- NOTE | 2023-10-08 10:07 | A.OFFPC_ITS ---
Vital Signs 10/08/23 10:07 Height 5 ft 4.5 in Weight 156 lb BMI 26.4 BP 122/76 Blood Pressure Location Rt brachial Position Sitting Pulse 79 Pulse Source Pulse Oximeter Pulse Oximetry (%) 97 Oxygen Delivery Method Room Air Intake Visit Reasons: 6 Month follow up Intake Note: Pt is here today for 6 months follow up visit. Allergies amoxicillin [AMOXICILLIN] Allergy (Severe, Verified 10/08/23 10:08) ANGIOEDEMA, tongue swells Medication List - Last Reconciled 10/08/23 by Ching López MD amlodipine 10 mg PO DAILY glucosamine HCl-vitamin D3 1,500-200 mg-unit tabs PO meloxicam 15 mg PO DAILY olmesartan 5 mg PO DAILY pravastatin 20 mg PO BEDTIME primidone 250 mg PO BEDTIME vitamin B complex (B Complex-Vitamin B12 tablet) 1 tab PO DAILY Tobacco use date assessed: 10/08/23 Fall risk assessment: No Falls in past year Last assessed Fall Risk: 10/08/23 Dental Screening Dental Screen Date: 10/08/23 Did you have a dental visit in the last 12 months?: Yes Did you have a dental problem in the last 6 months where you did not have access to dental care?: No Was dental information given to patient?: Patient has dentist HPI 6 Month follow up HPI Details Patient presents for the follow-up on hypertension and hyperlipidemia stable on current medications. She complains of a growth on her upper lip getting larger and would like to see a plastic surgeon for evaluation. Patient follows up with Neurology for essential tremor and has been taking primidone. COUNT INCLUDES THE [facility] Medical History (Updated 10/08/23 @ 10:33 by Ching López MD) Primary localized osteoarthritis of left hip Cancer Hx of degenerative disc disease Back pain Arthritis Essential tremor Hx pulmonary embolism Surgical History Status post total hip replacement, left History of total left hip arthroplasty Hx of cataract surgery History of total replacement of left shoulder joint History of surgical removal of ganglion cyst Hx of lumbar discectomy Hx of cervical discectomy History of total right hip arthroplasty Hx of total hysterectomy with removal of both tubes and ovaries H/O colonoscopy Family History Mother HTN (hypertension), benign Father Mental health disorder Social History Household Members: None Household Members Other:: lives alone, 2 sisters in the area, retired marine Housing: Apartment Are you a primary care technician to a significant other at home: No Do you presently have visiting nurse or other home services: No Alcohol intake: never Comment: sleeping Patient Tobacco Use Status: Former Tobacco user e-Cigarette/Vaping Use: Never Used Second Hand Smoke Exposure: No service: Yes Current occupational status: retired Current occupation: Right Handed Cognitive needs: No Hearing needs: No Vision needs: No Questionnaire PHQ-9 Over the last 2 weeks, how often have you been bothered by any of the following problems? 1. Little interest or pleasure in doing things: not at all 2. Feeling down, depressed, or hopeless: not at all 3. Trouble falling or staying asleep, or sleeping too much: not at all 4. Feeling tired or having little energy: not at all 5. Poor appetite or overeating: not at all 6. Feeling bad about yourself - or that you are a failure or have let yourself or your family down: not at all 7. Trouble concentrating on things, such as reading the newspaper or watching television: not at all 8. Moving or speaking so slowly that other people could have noticed. Or the opposite - being so fidgety or restless that you have been moving around a lot more than usual: not at all 9. Thoughts that you would be better off or of hurting yourself in some way: not at all Total score: 0 Depression Screening Interpretation: Negative Depression Screening Done: Yes Source: Developed by Drs. Steve Zuñiga, Lupe Vines, Roderick Lundy and colleagues, with an educational jerome from [employer]. Thrive Questionnaire Date Thrive assessed: 10/08/23 I am a: Patient What is your living situation today?: I have a steady place to live Within the past 12 months, did the food you bought not last and you didn't have the money to get more?: Never true Within the past 12 months, did you worry whether your food would run out before you got money to buy more?: Never true Do you have trouble paying for medicines?: No Do you have trouble getting transportation to medical appointments?: No Do you have trouble paying your heating and electricity bill?: No Do you have trouble taking care of your child, family member or friend?: No Do you have trouble with day-to-day activities such as bathing, preparing meals, shopping, managing finances, etc.?: No Are you currently unemployed and looking for a job?: No Are you interested in more education?: No Please select the resources that you would like help with: None THRIVE Score: 0 AUDIT C Alcohol Use Questionnaire (AUDIT-C) 1. How often do you have a drink containing alcohol?: Never 3. How often do you have six or more drinks on one occasion?: Never Total Score: 0 ADI-7 AMB Questionnaire ADI-7 Date ADI - 7 assessed: 10/08/23 Feeling nervous, anxious, or on edge: 0 = Not at all Not being able to stop or control worryin = Not at all Worrying too much about different things: 0 = Not at all Trouble relaxin = Not at all Being so restless that it is hard to sit still: 0 = Not at all Becoming easily annoyed or irritable: 0 = Not at all Feeling afraid as if something awful might happen: 0 = Not at all Total ADI-7 score (0-4 normal; 5-9 mild; 10-14 moderate; 15-21 severe): 0 Source: Developed by Drs. Steve Zuñiga, Lupe Vines, Roderick Lundy and colleagues, with an educational jerome from [employer]. Review of Systems Const All systems reviewed & are unremarkable except as noted in HPI and below ENT Reports no additional complaints Card Reports no additional complaints Resp Reports no additional complaints GI Reports no additional complaints Reports no additional complaints Physical exam (Primary Care) Vital Signs: Last Vital Signs Pulse 79 10/08/23 10:07 BP 122/76 10/08/23 10:07 Pulse Ox 97 10/08/23 10:07 Oxygen Delivery Method Room Air 10/08/23 10:07 BMI result Body Mass Index 26.4 Tobacco/Smoking Status: Tobacco use Status Tobacco use date assessed 10/08/23 10/08/23 10:14 Patient Tobacco Use Status Former Tobacco user 10/08/23 10:07 e-Cigarette/Vaping Use Never Used 05/10/24 10:07 PHQ-9: PHQ-9 Score PHQ-9: Total score 0 10/08/23 10:15 Depression Screening Interpretation: Negative Thrive Assessment: Date of Thrive Assessment Date Thrive assessed 10/08/23 10/08/23 10:15 Const General: no acute distress HENMT Other: Left side upper lip 5 mm fluid-filled lesion no erythema warmth or bleeding Head: Yes normal to inspection Mouth: Normal oral and palatal mucosa present Eyes General: appearance normal, both eyes and all related structures Neck Neck: Yes no lymphadenopathy and Yes supple Resp Effort & Inspection: normal respiratory effort Auscultation: clear to auscultation bilaterally Cardio Rhythm: regular rhythm Heart sounds: S1 normal heart sound present and S2 normal heart sound present Assessment and Plan Assessment & Plan (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 Code(s): D23.30 - Other benign neoplasm of skin of unspecified part of face Plan: Referred to Plastic surgery (2) HTN (hypertension): Code(s): I10 - Essential (primary) hypertension Plan: Continue current medications (3) Hyperlipidemia: Code(s): E78.5 - Hyperlipidemia, unspecified Plan: Continue statin (4) Essential tremor: Comment: f/u Code(s): G25.0 - Essential tremor Plan: Follow-up with neurology Orders: Orders Lipid Panel 6 Months E78.5 - Hyperlipidemia, unspecified, I10 - Essential (primary) hypertension TSH reflex Free T4 6 Months E78.5 - Hyperlipidemia, unspecified, I10 - Essential (primary) hypertension Comprehensive [place]. Panel Fast 6 Months E78.5 - Hyperlipidemia, unspecified, I10 - Essential (primary) hypertension Complete Blood Count Auto Diff 6 Months E78.5 - Hyperlipidemia, unspecified, I10 - Essential (primary) hypertension Referrals Plastic Surgery Referral D23.30 - Other benign neoplasm of skin of unspecified part of face Coding Level of Care Code Est Pt Level 4 (76316) Diagnoses Facial angiofibroma D23.30 HTN (hypertension) I10 Hyperlipidemia E78.5 Essential tremor G25.0
== END 2023-10-08 10:28 | disposition home or self-care (01) ==
PROVIDERS: PCP Internal Medicine; Visit Provider Internal Medicine
DX: D23.30 Other benign neoplasm of skin of unspecified part of face (principal); I10 Essential (primary) hypertension; E78.5 Hyperlipidemia, unspecified; G25.0 Essential tremor
CPT/HCPCS: 99214

== ENCOUNTER 2024-04-06 07:20 | Outpatient (REF) | payer OTHER, SELFPAY ==
[2024-04-06 10:25] LABS: MANUAL DIFF FLAG NO
[2024-04-06 10:38] LABS: Basophils Percent Auto 0.5 % (0-2); Eosinophils Absolute Auto 0.1 X10*3/uL (0.0-0.4); Eosinophils Percent Auto 2.1 % (0-4); Hematocrit 38.9 % (37.0-47.0); Hemoglobin 13.1 g/dl (12.0-16.0); Imm Gran Abs Auto 0.01 X10*3/uL (0.00-0.03); Imm Gran Pct Auto 0.2 % (0.0-0.4); Lymphocytes Absolute Auto 1.3 X10*3/uL (1.2-4.9); Lymphocytes Percent Auto 29.4 % (20-40); Mean Corpuscular HGB Conc 33.7 g/dl (31.0-35.0); Mean Corpuscular Hemoglobin 31.2 pg (27.0-33.0); Mean Corpuscular Volume 92.6 fL (80.0-98.0); Mean Platelet Volume 9.6 fL (9.4-12.3); Monocytes Absolute Auto 0.4 X10*3/uL (0.1-1.2); Monocytes Percent Auto 9.6 % (2-11); Neutrophils Absolute Auto 2.6 x10*3/uL (2.0-8.3); Neutrophils Percent Auto 58.2 % (45-73); Platelet Count 385 X10*3/uL (160-400); Red Cell Distribution Width 13.4 % (11.0-16.0); White Blood Count 4.4 X10*3/uL (4.8-10.8)
[2024-04-06 11:08] LABS: Alanine Aminotransferase 24 U/L (0-31); Albumin Level 4.4 g/dL (3.5-5.0); Alkaline Phosphatase 72 U/L (39-117); Anion Gap 12 (12-20); Aspartate Amino Transferase 29 U/L (5-31); Bilirubin Total 0.3 mg/dL (0.0-1.0); Blood Urea Nitrogen 15 mg/dL (9-16); Calcium 9.5 mg/dL (8.4-10.2); Carbon Dioxide 26 mmol/L (22-29); Chloride 106 mmol/L (96-108); Cholesterol 211 mg/dL (<200); Estimated Glomerular Filt Rate > 60; Glucose Fasting 93 mg/dL (60-99); HDL Cholesterol 67 mg/dL (>40); LDL Cholesterol Calculated 130 mg/dL (<100); Potassium 4.4 mmol/L (3.3-5.1); Sodium 140 mmol/L (135-145); Total Protein 7.4 g/dL (6.5-8.0); Triglycerides 73 mg/dL (<150)
== END 2024-04-06 07:21 | disposition home or self-care (01) ==
LOC: HO.HMGCLDS 07:20
PROVIDERS: PCP Internal Medicine; Visit Provider Internal Medicine
DX: E78.5 Hyperlipidemia, unspecified (principal); I10 Essential (primary) hypertension
CPT/HCPCS: 36415; 80053; 80061; 84443; 85025

== ENCOUNTER 2024-04-11 08:17 | Outpatient (AMB) | payer OTHER, SELFPAY ==
[2024-04-11 08:32] VITALS: BP 124/76; PULSE 81; O2SAT 98; BMI 26.0
--- NOTE | 2024-04-11 08:32 | MHC.PC.OV ---
Vital Signs 04/11/24 08:32 Height 5 ft 4.5 in Weight 154 lb BMI 26.0 BP 124/76 Blood Pressure Location Lt brachial Position Sitting Pulse 81 Pulse Source Pulse Oximeter Pulse Oximetry (%) 98 Oxygen Delivery Method Room Air Intake Visit Reasons: 6 month follow up Intake Note: Pt is here today for 6 months follow up visit. Allergies amoxicillin [AMOXICILLIN] Allergy (Severe, Verified 04/11/24 08:32) ANGIOEDEMA, tongue swells Medication List - Last Reconciled 04/11/24 by Ching López MD amlodipine 10 mg PO DAILY glucosamine HCl-vitamin D3 1,500-200 mg-unit tabs PO olmesartan 5 mg PO DAILY pravastatin 20 mg PO BEDTIME primidone 250 mg PO BEDTIME vitamin B complex (B Complex-Vitamin B12 tablet) 1 tab PO DAILY Tobacco use date assessed: 04/11/24 Fall risk assessment: No Falls in past year Last assessed Fall Risk: 04/11/24 Dental Screening Dental Screen Date: 10/08/23 HPI 6 month follow up HPI Details Patient presents for the follow-up on hypertension hyperlipidemia controlled on current medications. She has been established with neurologist for many years for essential tremor treated with primidone. Patient's neurologist is retiring and she would like to be referred to a new neurologist. [facility] Medical History Primary localized osteoarthritis of left hip Cancer Hx of degenerative disc disease Back pain Arthritis Essential tremor Hx pulmonary embolism Surgical History Status post total hip replacement, left History of total left hip arthroplasty Hx of cataract surgery History of total replacement of left shoulder joint History of surgical removal of ganglion cyst Hx of lumbar discectomy Hx of cervical discectomy History of total right hip arthroplasty Hx of total hysterectomy with removal of both tubes and ovaries H/O colonoscopy Family History Mother HTN (hypertension), benign Father Mental health disorder Social History Household Members: None Household Members Other:: lives alone, 2 sisters in the area, retired marine Housing: Apartment Are you a primary career center director to a significant other at home: No Do you presently have visiting nurse or other home services: No Alcohol intake: never Comment: sleeping Patient Tobacco Use Status: Former Tobacco user e-Cigarette/Vaping Use: Never Used Second Hand Smoke Exposure: No service: Yes Current occupational status: retired Current occupation: Right Handed Cognitive needs: No Hearing needs: No Vision needs: No Questionnaire PHQ-9 Over the last 2 weeks, how often have you been bothered by any of the following problems? 5. Poor appetite or overeating: not at all 7. Trouble concentrating on things, such as reading the newspaper or watching television: not at all Source: Developed by Drs. Steve Zuñiga, Lupe Vines, Roderick Lundy and colleagues, with an educational jerome from [employer]. Thrive Questionnaire Date Thrive assessed: 10/08/23 I am a: Patient What is your living situation today?: I have a steady place to live Within the past 12 months, did the food you bought not last and you didn't have the money to get more?: Never true Within the past 12 months, did you worry whether your food would run out before you got money to buy more?: Never true Do you have trouble paying for medicines?: No Do you have trouble getting transportation to medical appointments?: No Do you have trouble paying your heating and electricity bill?: No Do you have trouble taking care of your child, family member or friend?: No Do you have trouble with day-to-day activities such as bathing, preparing meals, shopping, managing finances, etc.?: No Are you currently unemployed and looking for a job?: No Are you interested in more education?: Yes Please select the resources that you would like help with: None Currently or been in a relationship where the following occur: No concerns reported THRIVE Score: 0 AUDIT C Alcohol Use Questionnaire (AUDIT-C) 1. How often do you have a drink containing alcohol?: Never 3. How often do you have six or more drinks on one occasion?: Never Total Score: 0 ADI-7 AMB Questionnaire ADI-7 Date ADI - 7 assessed: 10/08/23 Feeling nervous, anxious, or on edge: 0 = Not at all Not being able to stop or control worryin = Not at all Worrying too much about different things: 0 = Not at all Trouble relaxin = Not at all Being so restless that it is hard to sit still: 0 = Not at all Becoming easily annoyed or irritable: 0 = Not at all Feeling afraid as if something awful might happen: 0 = Not at all Total ADI-7 score (0-4 normal; 5-9 mild; 10-14 moderate; 15-21 severe): 0 Source: Developed by Drs. Steve Zuñiga, Lupe Vines, Roderick Lundy and colleagues, with an educational jerome from [employer]. Review of Systems Const All systems reviewed & are unremarkable except as noted in HPI and below Eyes Reports no additional complaints ENT Reports no additional complaints Card Reports no additional complaints Resp Reports no additional complaints GI Reports no additional complaints Reports no additional complaints Physical exam (Primary Care) Vital Signs: Last Vital Signs Pulse 81 04/11/24 08:32 BP 124/76 04/11/24 08:32 Pulse Ox 98 04/11/24 08:32 Oxygen Delivery Method Room Air 04/11/24 08:32 BMI result Body Mass Index 26.0 Tobacco/Smoking Status: Tobacco use Status Tobacco use date assessed 04/11/24 04/11/24 08:34 Patient Tobacco Use Status Former Tobacco user 04/11/24 08:34 e-Cigarette/Vaping Use Never Used 04/11/24 08:34 Thrive Assessment: Date of Thrive Assessment Date Thrive assessed 10/08/23 04/11/24 08:34 Currently or been in a relationship where the following occur: No concerns reported Const General: no acute distress HENMT Head: Yes normal to inspection Ears: hearing grossly normal bilaterally Face and sinus: Yes normal facial exam Mouth: Normal oral and palatal mucosa present Neck Neck: Yes no lymphadenopathy and Yes supple Resp Effort & Inspection: normal respiratory effort Auscultation: clear to auscultation bilaterally Cardio Rhythm: regular rhythm Heart sounds: S1 normal heart sound present and S2 normal heart sound present GI Inspection: Yes normal to inspection Palpation (GI): Soft to palpation Percussion: Yes normal to percussion Auscultation: normal bowel sounds Coding Level of Care Code Est Pt Level 4 (29027) Diagnoses Essential tremor G25.0 HTN (hypertension) I10 Hyperlipidemia E78.5 Assessment & Plan Assessment & Plan (1) Essential tremor: Comment: f/u Code(s): G25.0 - Essential tremor Category: Medical Plan: Continue current medications patient will be referred to [facility] (2) HTN (hypertension): Code(s): I10 - Essential (primary) hypertension Category: Medical Plan: Continue current medications (3) Hyperlipidemia: Code(s): E78.5 - Hyperlipidemia, unspecified Category: Medical Plan: Continue statin return for physical in 1 year Orders: Orders MM screening mammo BI Today Z12.31 - Encounter for screening mammogram for malignant neoplasm of breast Lipid Panel 1 Year E78.5 - Hyperlipidemia, unspecified, G25.0 - Essential tremor, I10 - Essential (primary) hypertension Vitamin D 25-OH Total 1 Year E78.5 - Hyperlipidemia, unspecified, G25.0 - Essential tremor, I10 - Essential (primary) hypertension Comprehensive [place]. Panel Fast 1 Year E78.5 - Hyperlipidemia, unspecified, G25.0 - Essential tremor, I10 - Essential (primary) hypertension Complete Blood Count Auto Diff 1 Year E78.5 - Hyperlipidemia, unspecified, G25.0 - Essential tremor, I10 - Essential (primary) hypertension TSH reflex Free T4 1 Year E78.5 - Hyperlipidemia, unspecified, G25.0 - Essential tremor, I10 - Essential (primary) hypertension Referrals Neurology Referral G25.0 - Essential tremor Medications: New primidone 50 mg PO .QD 90 tabs 0RF
== END 2024-04-11 09:39 | disposition home or self-care (01) ==
PROVIDERS: PCP Internal Medicine; Visit Provider Internal Medicine
DX: G25.0 Essential tremor (principal); I10 Essential (primary) hypertension; E78.5 Hyperlipidemia, unspecified

== ENCOUNTER → 2024-04-11 08:17 | Outpatient (BNVA) | payer OTHER, SELFPAY | PROVIDERS: PCP Internal Medicine; Visit Provider Internal Medicine | DX: G25.0 Essential tremor (principal); E78.5 Hyperlipidemia, unspecified; I10 Essential (primary) hypertension | CPT/HCPCS: 99212 ==

== ENCOUNTER 2024-06-30 08:44 | Outpatient (REF) | payer OTHER, SELFPAY ==
--- OUTSIDE RECORDS SUMMARY | 2024-06-30 09:03 | XMS_ITS | Clinical Summary ---
Author Organization Patient Business [facility] Address [address] [place] [address] Care Team Providers Care Staff Forester Name Role Phone Ching López MD Primary Care Provider [phone] Encounters Date Type Department Care Team Description 05/09/2024 9:10 AM EST - 05/09/2024 11:59 PM EST Hospital Encounter [facility] CT Scan [address] [place] [id number] Nicotine dependence, cigarettes, uncomplicated; Personal history of nicotine dependence Discharge Disposition: Home or Self Care 05/03/2024 Telephone Lung Screening Program - [facility] [address] [phone] Shayy Vines [place] 04/05/2024 Telephone Lung Screening Program - [facility] [address] [phone] Shayy Vines [place] Appointment (1st notification) from Last 3 Months Surgical History Surgery Date Site/Laterality Comments LUMBAR LAMINECTOMY 1973 PROCEDURE: HISTORICAL LUMB LAMINECTOMY OTHER SURGICAL HISTORY 2008 PROCEDURE: [place] LAMNOTMY INCL W/DCMPRSN NRV ROOT 1 INTRSPC CERVC; COMMENT: cervical spine EYE SURGERY PROCEDURE: [place] TRABECULOPLASTY BY LASER SURGERY; COMMENT: 2001 ABDOMINAL SURGERY 2009 PROCEDURE: [place] UNLISTED PROCEDURE ABDOMEN PERITONEUM & OMENTUM; COMMENT: removal of borderline mucinous tumor, omentum, uterus OTHER SURGICAL HISTORY 05/29/2013 PROCEDURE: [place] COLONOSCOPY STOMA RMVL LES BY HOT BIOPSY FORCEPS; COMMENT: polypsX2 - spl. flex - 7mm pedunc.-> tub.adenoma, @30cm 4mm- hyperplastic SHOULDER SURGERY 2018 Left PROCEDURE: HISTORICAL SHOULDER SURGERY; COMMENT: shoulder replacement HIP ARTHROPLASTY 2018 Right PROCEDURE: HISTORICAL HIP REPLACEMENT BREAST BIOPSY PROCEDURE: BX BREAST; PERC NEEDLE CORE W/IMAG GUID; COMMENT: rt brst bx neg HIP ARTHROPLASTY 2019 Left PROCEDURE: HISTORICAL HIP REPLACEMENT WRIST MASS EXCISION 2016 Left PROCEDURE: [place] EXCISION GANGLION WRIST DORSAL/VOLAR PRIMARY CATARACT EXTRACTION 2016 Bilateral PROCEDURE: HISTORICAL CATARACT REMOVAL Medical History Medical History Date Comments Tobacco use disorder 07/13/2005 DX:Tobacco use disorder Essential hypertension, benign 07/13/2005 D X:Essential hypertension, benign Cervicalgia 07/13/2005 DX:Cervicalgia Other pulmonary embolism and infarction 07/13/2005 DX:Other pulmonary embolism and infarction Tremor 12/09/2009 DX:Tremor Abdominal or pelvic swelling , mass or lump, unspecified site 12/09/2009 DX:Abdominal or pelvic swell ing, mass or lump, unspecified site 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 Family History Medical History Relation Name Comments Other: Alzheimer's Father at the ag e of 89 No Known Problems Maternal Grandfather No Known Problems Maternal Grandmother Stroke Mother at the age of 9 3 No Known Problems Paternal Grandfather No Known Problems Paternal Grandmother Hypertension Sister cholesterol Breast cancer Neg Hx Relation Name Status Comments Father Maternal Grandfather Maternal Grandmother Mother Paternal Grandfather Paternal Grandmother Sister Alive Social History Tobacco Use Types Packs/Day Years Used Date Smoking Tobacco: Former Cigarettes 0.5 42.6 0 05/31/1967 - 01/20/2010 Smokeless Tobacco: Never Alcohol Use Standard Drinks/Week Comments No 0 (1 standard drink = 0.6 oz pur e alcohol) Sex and Gender Information Value Date Recorded Sex Assigned at Female 04/02/2024 7:55 AM EST Gender Identity Female 04/02/2024 7:55 AM EST Sexual Orientation Straight 10/13/2021 6: 27 AM EDT Job Start Date Occupation Industry Not on file Not on file Not on file Obstetrics History Last Filed Vital Signs Vital Sign Reading Time Taken Comments Blood Pressure 110/70 09/23/2022 8:00 AM EDT Pulse 62 09/23/2022 8:00 AM EDT Temperature - - Respiratory Rate - - Oxygen Saturation - - Inhaled Oxygen Concentration - - Weight 74.8 kg (165 lb) 09/23/2022 8:00 AM EDT Height 162.6 cm (5' 4 ) 09/23/2022 8:00 AM EDT Body Mass Index 28.32 09/23/2022 8:00 AM EDT Plan of Treatment Health Maintenance Due Date Last Done Comments Hepatitis A Vaccines (1 of 2 - Risk 2-dose series) 02/19/1968 Zoster Vaccines (2 of 3) 03/17/2013 01/20/2013 Cholesterol Screening (Lipid Panel) 09/27/2021 Colorectal Cancer Screening: Colonoscopy 09/27/2021 Depression Screening 09/27/2021 Falls Risk Assessment 09/27/2021 Hepatitis C Screening 09/27/2021 Social Influencers of Health Screening 09/27/2021 Hypertension/CHF/CAD Annual BMP Blood Test 05/10/2022 COVID-19 Vaccine ( season) 2024 06/17/2021, 12/07/2020, 11/16/2020 Influenza Vaccine (#1) 2024 RSV Immunization Patients 60+ Years Old (1 - 1-dose 75+ series) 02/19/2024 Lung Cancer Screening (Low Dose CT) 05/09/2025 05/09/2024, 04/15/2023, 08/08/2021 DTaP,Tdap,and Td Vaccines (3 - Td or Tdap) 01/03/2030 01/04/2020, 12/09/2009 Osteoporosis Screening (Bone Density Screening) 10/06/2032 10/06/2022, 06/19/2020 Pneumococcal Vaccine: 65+ Years Completed 06/23/2021, 09/13/2015, 11/09/2013 Breast Cancer Screening Discontinued 06/28/19, 06/19/2022, 06/17/2021, Additional history exists HIB Vaccines Aged Out No longer eligi ble based on patient's age to complete this topic HPV Vaccines Aged Out No longer eligi ble based on patient's age to complete this topic Hepatitis B Vaccines Aged Out No long er eligible based on patient's age to complete this topic IPV Vaccines Aged Out No longer eligi ble based on patient's age to complete this topic MMR Vaccines Aged Out No longer eligi ble based on patient's age to complete this topic Meningococcal ACWY Vaccine Aged Out N o longer eligible based on patient's age to complete this topic RSV Immunization Patients Under 20 months Aged Out No longer eligible based on patient's age to complete this topic Varicella Vaccines Aged Out No longer eligible based on patient's age to complete this topic Procedures Procedure Name Priority Date/Time Associated Diagnosis Comments CT LUNG SCREENING Routine 05/09/2024 9:2 6 AM EST Nicotine dependence, cigarettes, uncomplicated Personal history of nicotine dependence SCREENING MAMMOGRAPHY BI 2-VIEW BREAST INC CAD Routine 06/28/2023 10:56 AM EST Encounter for screening mammogram for malignant neoplasm of breast DXA BONE DENSITY STUDY 1+ SITS AXIAL SKEL Routine 10/06/2022 10:03 AM EDT Other specified disorders of bone density and structure, unspecified site from Last 3 Months or Most Recently Relevant to Health Maintenance Results * CT Lung Screening (05/09/2024 9:26 AM EST) Anatomical Region Laterality Modality Chest Computed Tomogra phy 05/10/2024 10:5 5 AM EST Impressions 05/10/2024 11:23 AM EST No new or suspicious pulmonary nodules. ??Lung RADS 2-benign. ??Recommend continued screening low-dose chest CT in 12 months. -------- FINAL REPORT -------- Dictated By: LIAM SANTOS Dictated Date: 05/10/2024 10:55 ET Assigned Physician: LIAM SANTOS Reviewed and Electronically Signed By: LIAM SANTOS Signed Date: 05/10/2024 11:23 ET Workstation ID: [id number] Transcribed By: Self Edit Transcribed Date: 05/10/2024 10:55 ET Narrative 05/10/2024 11:23 AM EST PROCEDURE: Chest CT INDICATION: Lung cancer screening, former smoker, 40 pack-year smoking history TECHNIQUE: Chest CT without contrast. Multi planar reformats were created and interpreted. The examination was performed utilizing dose reduction techniques. ??Total DLP 167 COMPARISON: ??04/12/2023 FINDINGS: LUNGS/PLEURA: Central airways are patent. ??3 mm nodules in the right lower lobe are stable compared to prior. ??4 mm left lower lobe nodule is stable compared to prior. ??Smaller scattered nodules throughout the lungs are stable compared to prior No new or suspicious pulmonary nodules. ??Biapical pleural-parenchymal scarring. ??No pleural effusion or pneumothorax MEDIASTINUM: Thyroid gland is normal. ??No mediastinal or hilar lymphadenopathy. ??Esophagus is normal. ??Cardiac chambers are normal in size. ??No pericardial effusion. ??Mild coronary artery calcifications CHEST WALL: No axillary lymphadenopathy or superficial hematoma. UPPER ABDOMEN:Multiple hepatic cysts are similar compared to prior. ??Cholelithiasis. BONES: No acute fracture. ??Left shoulder arthroplasty. ??Scattered degenerative changes seen throughout the bones. Procedure Note Liam Santos MD - 05/10/2024 PROCEDURE: Chest CT INDICATION: Lung cancer screening, former smoker, 40 pack-year smokinghistory TECHNIQUE: Chest CT without contrast. Multi planar reformats were createdand interpreted. The examination was performed utilizing dose reductiontechniques. Total DLP 167 COMPARISON: 04/12/2023 FINDINGS: LUNGS/PLEURA: Central airways are patent. 3 mm nodules in the right lowerlobe are stable compared to prior. 4 mm left lower lobe nodule is stablecompared to prior. Smaller scattered nodules throughout the lungs arestable compared to prior No new or suspicious pulmonary nodules. Biapicalpleural-parenchymal scarring. No pleural effusion or pneumothorax MEDIASTINUM: Thyroid gland is normal. No mediastinal or hilarlymphadenopathy. Esophagus is normal. Cardiac chambers are normal insize. No pericardial effusion. Mild coronary artery calcifications CHEST WALL: No axillary lymphadenopathy or superficial hematoma. UPPER ABDOMEN:Multiple hepatic cysts are similar compared to prior.Cholelithiasis. BONES: No acute fracture. Left shoulder arthroplasty. Scattereddegenerative changes seen throughout the bones. IMPRESSION: No new or suspicious pulmonary nodules. Lung RADS 2-benign. Recommendcontinued screening low-dose chest CT in 12 months. -------- FINAL REPORT -------- Dictated By: LIAM SANTOS Dictated Date: 05/10/2024 10:55 ET Assigned Physician: LIAM SANTOS Reviewed and Electronically Signed By: LIAM SANTOS Signed Date: 05/10/2024 11:23 ET Workstation ID: [id number] Transcribed By: Self Edit Transcribed Date: 05/10/2024 10:55 ET Dmitriy Shepard MD IMG CT PROCEDURES * SCREENING MAMMOGRAPHY BI 2-VIEW BREAST INC CAD (06/28/2023 10:56 AM EST) Anatomical Region Laterality Modality Radiographic Mary ging 06/19/2022 11:0 5 AM EST Narrative 06/28/2023 5:53 PM EST This is a summary report. The complete report is available in the patient's medical record. If you cannot access the medical record, please contact the sending organization for a detailed fax or copy. Study: SCREENING MAMMOGRAPHY BI 2-VIEW BREAST INC CAD Technique: Bilateral full-field digital screening mammography is obtained and read in conjunction with computer aided detection. ??Tomosynthesis as well as 2D C-View imaging were obtained. Comparison: Comparison made to multiple prior, most recent June 19, 2022, and most remote January 23, 2014. Breast composition: The breast tissue is heterogeneously dense, which may obscure small masses. Bilateral breasts: No significant masses, suspicious calcifications or other abnormalities are seen in either breast. IMPRESSION: Impression: Bilateral breasts: Negative, no specific mammographic evidence of malignancy. ??Normal interval follow-up is recommended in 12 months. BI-RADS: Category 1: Negative Procedure Note Ra Pratt MD - 01/17/2024 This is a summary report. The complete report is available in thepatient's medical record. If you cannot access the medical record, pleasecontact the sending organization for a detailed fax or copy. Study: SCREENING MAMMOGRAPHY BI 2-VIEW BREAST INC CAD Technique: Bilateral full-field digital screening mammography is obtainedand read in conjunction with computer aided detection. Tomosynthesis aswell as 2D C-View imaging were obtained. Comparison: Comparison made to multiple prior, most recent May, and most remote January 23, 2014. Breast composition: The breast tissue is heterogeneously dense, which mayobscure small masses. Bilateral breasts: No significant masses, suspicious calcifications orother abnormalities are seen in either breast. IMPRESSION: Impression: Bilateral breasts: Negative, no specific mammographic evidence ofmalignancy. Normal interval follow-up is recommended in 12 months. BI-RADS: Category 1: Negative Malini Alvarado MD IMG XR PROCEDURES * DXA BONE DENSITY STUDY 1+ SITS AXIAL SKEL (10/06/2022 10:03 AM EDT) Anatomical Region Laterality Modality Bone Densitometr y 09/23/2022 8:25 AM EDT Narrative 10/06/2022 2:46 PM EDT BONE DENSITY (DEXA) ? Lumbar Spine T-score is 1.4. ?? (SD relative to 20-29 y/o adult) Z-score is 3.7. ??(SD relative to age matched peers) This is considered normal by WHO criteria. Left Forearm T-score is -2.3. Z-score is 0.2. This is considered osteopenia by WHO criteria. Lateral view of the spine demonstrates vertebral heights to be maintained. ?? IMPRESSION: This patient is considered to have osteopenia by WHO criteria. The [facility] Department of Internal Medicine recommends using National Osteoporosis Foundation (NOF) guidelines in treatment decisions related to osteoporosis. NOF guidelines suggest considering treatment for postmenopausal women and men aged 50 or older presenting with the following: History of hip or vertebral fracture. T-score = -2.5 (DXA) at the femoral neck, total hip, or spine, after appropriate evaluation to exclude secondary causes. Low bone mass (T-score between -1.0 and -2.5 at the femoral neck or spine) AND a 10-year probability of a hip fracture = 3% OR a 10-year probability of a major osteoporosis-related fracture = 20% based on the [place]-adapted WHO algorithm Please note that all treatment decisions require clinical judgment and consideration of individual patient factors, including patient preferences, co-morbidities, previous drug use, risk factors not captured in the FRAX model (e.g., frailty, falls, vitamin D deficiency, increased bone turnover, interval significant decline in bone density) and possible under- or over-estimation of fracture risk by FRAX. Optional alternative screening schedule based on parisa Spring., [facility], [place] June 18, 2011 for patients with osteopenia (based on hip BMD T-score) is as follows: * ??advanced osteopenia (T scores -2.00 to -2.49), BMD testing every year * ??moderate osteopenia (T scores -1.50 to -1.99), BMD testing every 5 years mild osteopenia or normal BMD (T scores -1.50 and higher), BMD testing every 15 years Procedure Note Esther Ocampo MD - 07/06/2023 BONE DENSITY (DEXA) Lumbar Spine T-score is 1.4. (SD relative to 20-29 y/o adult) Z-score is 3.7. (SD relative to age matched peers) This is considered normal by WHO criteria. Left Forearm T-score is -2.3. Z-score is 0.2. This is considered osteopenia by WHO criteria. Lateral view of the spine demonstrates vertebral heights to be maintained. IMPRESSION: This patient is considered to have osteopenia by WHO criteria. The [facility] Department of Internal Medicine recommendsusing National Osteoporosis Foundation (NOF) guidelines in treatment decisions related toosteoporosis. NOF guidelines suggest considering treatment for postmenopausal women and menaged 50 or older presenting with the following: History of hip or vertebral fracture. T-score = -2.5 (DXA) at the femoral neck, total hip, or spine, afterappropriate evaluation to exclude secondary causes. Low bone mass (T-score between -1.0 and -2.5 at the femoral neck or spine)AND a 10-year probability of a hip fracture = 3% OR a 10-year probability of a majorosteoporosis-related fracture = 20% based on the [place]-adapted WHO algorithm Please note that all treatment decisions require clinical judgment andconsideration of individual patient factors, including patient preferences, co- morbidities,previous drug use, risk factors not captured in the FRAX model (e.g., frailty, falls, vitaminD deficiency, increased bone turnover, interval significant decline in bone density) andpossible under- or over-estimation of fracture risk by FRAX. Optional alternative screening schedule based on alexandra Spring al., NEJMJanuary 2011 for patients with osteopenia (based on hip BMD T-score) is as follows: * advanced osteopenia (T scores -2.00 to -2.49), BMD testing every year * moderate osteopenia (T scores -1.50 to -1.99), BMD testing every 5years mild osteopenia or normal BMD (T scores -1.50 and higher), BMD testingevery 15 years Irma FOY IMG DXA PROCEDURES from Last 3 Months or Most Recently Relevant to Health Maintenance Care Teams Staff Forester Relationship Specialty Start Date End Date Ching López MD PCP - General 06/28/23
== END 2024-06-30 08:45 | disposition home or self-care (01) ==
LOC: HO.MAMMO 08:44
PROVIDERS: PCP Internal Medicine; Visit Provider Internal Medicine
DX: Z12.31 Encounter for screening mammogram for malignant neoplasm of breast (principal)
CPT/HCPCS: 77063; 77067

== ENCOUNTER → 2024-06-30 09:15 | Outpatient (BNV) | payer OTHER, SELFPAY | PROVIDERS: PCP Internal Medicine; Visit Provider Internal Medicine | DX: Z12.31 Encounter for screening mammogram for malignant neoplasm of breast (principal) | CPT/HCPCS: 77063; 77067 ==

== ENCOUNTER 2024-09-13 10:52 | Outpatient (REF) | payer OTHER, SELFPAY ==
--- NOTE | ~2024-09-13 | XR_ITS ---
EXAMINATION: XR LUMBOSACRAL SPINE CLINICAL INFORMATION: M51.369 - Other intervertebral disc degeneration, lumbar region without ... COMPARISON: 07/03/2014. TECHNIQUE: Three views of the lumbosacral spine. FINDINGS: No scoliosis. Normal lordosis. No fracture, compression deformity, or suspicious bone lesion. There is a 3 mm degenerative retrolisthesis of L1 on L2, a 4 mm retrolisthesis of L2 on L3, a 3 mm retrolisthesis of L3 on L4, and a 5 mm anterolisthesis of L4 on L5. There is severe disc degeneration present spanning T12-L3, and involving L5-S1. There is moderate disc degeneration at L3-4 and L4-5. There is normal facet alignment. There are hypertrophic degenerative facet changes spanning L3-S1. Partially imaged bilateral hip arthroplasties. Sacrum intact. Mild bilateral degenerative SI joint arthropathy. Soft tissues demonstrate vascular calcification. There are surgical clips to the right of L4-5, and along the pelvic sidewalls. XR/XR lumbar spine 2-3V IMPRESSION: 1. No acute bony abnormalities. Moderate to extensive diffuse lumbar spondylosis. Electronically signed by: Luis Enrique Mireles MD 09/14/2024 09:26 AM EDT
--- OUTSIDE RECORDS SUMMARY | 2024-09-13 14:17 | XMS_ITS | Clinical Summary ---
Author Organization Patient Business Ser [facility] [place] Address [address] [place] [address] Care Team Providers Care Model Maker Firearms Name Role Phone Ching López MD Primary Care Provider [phone] Surgical History Surgery Date Site/Laterality Comments LUMBAR LAMINECTOMY 1973 PROCEDURE: HISTORICAL LUMB LAMINECTOMY OTHER SURGICAL HISTORY 2008 PROCEDURE: CA LAMNOTMY INCL W/DCMPRSN NRV ROOT 1 INTRSPC CERVC; COMMENT: cervical spine EYE SURGERY PROCEDURE: CA TRABECULOPLASTY BY LASER SURGERY; COMMENT: 2001 ABDOMINAL SURGERY 2009 PROCEDURE: CA UNLISTED PROCEDURE ABDOMEN PERITONEUM & OMENTUM; COMMENT: removal of borderline mucinous tumor, omentum, uterus OTHER SURGICAL HISTORY 05/29/2013 PROCEDURE: CA COLONOSCOPY STOMA RMVL LES BY HOT BIOPSY [...] REPLACEMENT WRIST MASS EXCISION 2016 Left PROCEDURE: CA EXCISION GANGLION WRIST DORSAL/VOLAR PRIMARY CATARACT EXTRACTION [...] Signed Date: 05/10/2024 11:23 ET Workstation ID: [id number] Transcribed By: Self Edit Transcribed Date: 05/10/2024 [...] Signed Date: 05/10/2024 11:23 ET Workstation ID: [id number] Transcribed By: Self Edit Transcribed Date: 05/10/2024 [...] to have osteopenia by WHO criteria. [facility] Department of Internal Medicine recommends using [...] alternative screening schedule based on parisa Spring., [facility] June 18, 2011 for patients with osteopenia [...] to have osteopenia by WHO criteria. [facility] Department of Internal Medicine recommendsusing National [...] Maintenance Insurance [employer] Care Teams Model Maker Firearms Relationship Specialty Start Date End Date Ching López MD PCP - General 06/28/23
== END 2024-09-13 10:53 | disposition home or self-care (01) ==
LOC: HO.HMGCX 10:52
PROVIDERS: PCP Internal Medicine; Visit Provider Internal Medicine
DX: M51.369 Other intervertebral disc degeneration, lumbar region without mention of lumbar back pain or lower extremity pain (principal)
CPT/HCPCS: 72100; 96127; 99212

== ENCOUNTER 2024-09-13 10:52 | Outpatient (AMB) | payer OTHER, SELFPAY ==
[2024-09-13 11:09] VITALS: BP 130/68; PULSE 82; RESP 20; TEMP 36.7; O2SAT 95; BMI 25.0
--- NOTE | 2024-09-13 11:09 | A.OFFPC_ITS ---
Vital Signs 09/13/24 11:09 Height 5 ft 4.5 in Weight 148 lb BMI 25.0 BP 130/68 Blood Pressure Location Rt brachial Position Sitting Respiration 20 Pulse 82 Pulse Source Pulse Oximeter Temp 98.0 F Temp Source Oral Pulse Oximetry (%) 95 Oxygen Delivery Method Room Air Intake Visit Reasons: back pain x 1 month Intake Note: Pt is here today for a back pain for a month and its getting worst.Pt states that she tried heat and stretching exercises but nothing is helping. Allergies amoxicillin [AMOXICILLIN] Allergy (Severe, Verified 09/13/24 11:14) ANGIOEDEMA, tongue swells Medication List - Last Reconciled 09/13/24 by Ching López MD amlodipine 10 mg PO DAILY baclofen 10 mg PO BEDTIME glucosamine HCl-vitamin D3 1,500-200 mg-unit tabs PO meloxicam 15 mg PO DAILY olmesartan 5 mg PO DAILY pravastatin 20 mg PO BEDTIME primidone 250 mg PO BEDTIME primidone 50 mg PO .QD vitamin B complex (B Complex-Vitamin B12 tablet) 1 tab PO DAILY Tobacco use date assessed: 09/13/24 Fall risk assessment: No Falls in past year Last assessed Fall Risk: 09/13/24 Dental Screening Dental Screen Date: 09/13/24 Did you have a dental visit in the last 12 months?: Yes Did you have a dental problem in the last 6 months where you did not have access to dental care?: No Was dental information given to patient?: Patient has dentist HPI back pain x 1 month HPI Details Pt c/o lower pain mid lumbar region occasionally radiating to left lower extremity for 1 month worse when standing up and starting to walk. Patient denies weakness or numbness in extremities change in bowel or bladder function Patient has been using cane to walk for the last 2 weeks. She fell down on the ice over a month ago. [facility] Medical History Primary localized osteoarthritis of left hip Cancer Hx of degenerative disc disease Back pain Arthritis Essential tremor Hx pulmonary embolism Surgical History Status post total hip replacement, left History of total left hip arthroplasty Hx of cataract surgery History of total replacement of left shoulder joint History of surgical removal of ganglion cyst Hx of lumbar discectomy Hx of cervical discectomy History of total right hip arthroplasty Hx of total hysterectomy with removal of both tubes and ovaries H/O colonoscopy Family History Mother HTN (hypertension), benign Father Mental health disorder Social History Household Members: None Household Members Other:: lives alone, 2 sisters in the area, retired marine Housing: Apartment Are you a primary healthcare administrative assistant to a significant other at home: No Do you presently have visiting nurse or other home services: No Alcohol intake: never Comment: sleeping Patient Tobacco Use Status: Former Tobacco user e-Cigarette/Vaping Use: Never Used Second Hand Smoke Exposure: No service: Yes Current occupational status: retired Current occupation: Right Handed Cognitive needs: No Hearing needs: No Vision needs: No Questionnaire PHQ-9 Over the last 2 weeks, how often have you been bothered by any of the following problems? 1. Little interest or pleasure in doing things: several days 2. Feeling down, depressed, or hopeless: not at all 3. Trouble falling or staying asleep, or sleeping too much: not at all 4. Feeling tired or having little energy: not at all 5. Poor appetite or overeating: not at all 6. Feeling bad about yourself - or that you are a failure or have let yourself or your family down: not at all 7. Trouble concentrating on things, such as reading the newspaper or watching television: not at all 8. Moving or speaking so slowly that other people could have noticed. Or the opposite - being so fidgety or restless that you have been moving around a lot more than usual: not at all 9. Thoughts that you would be better off or of hurting yourself in some way: not at all Total score: 1 Depression Screening Interpretation: Negative Depression Screening Done: Yes 41607 - PHQ-9 Billing: Yes Source: Developed by Drs. Steve Zuñiga, Lupe Vines, Roderick Lundy and colleagues, with an educational jerome from [employer]. Thrive Questionnaire Date Thrive assessed: 09/13/24 I am a: Patient What is your living situation today?: I have a steady place to live THRIVE Score: 0 AUDIT C Alcohol Use Questionnaire (AUDIT-C) 1. How often do you have a drink containing alcohol?: Never 3. How often do you have six or more drinks on one occasion?: Never Total Score: 0 ADI-7 AMB Questionnaire ADI-7 Date ADI - 7 assessed: 09/13/24 Feeling nervous, anxious, or on edge: 0 = Not at all Not being able to stop or control worryin = Not at all Worrying too much about different things: 0 = Not at all Trouble relaxin = Not at all Being so restless that it is hard to sit still: 0 = Not at all Becoming easily annoyed or irritable: 0 = Not at all Feeling afraid as if something awful might happen: 0 = Not at all Total ADI-7 score (0-4 normal; 5-9 mild; 10-14 moderate; 15-21 severe): 0 Source: Developed by Drs. Steve Zuñiga, Lupe Vines, Roderick Lundy and colleagues, with an educational jerome from [employer]. ADI-7 Assessment Billing ADI-7 Assessment Tool: ADI-7 Assessment 07655 Review of Systems Const All systems reviewed & are unremarkable except as noted in HPI and below Eyes Reports no additional complaints ENT Reports no additional complaints Card Reports no additional complaints Resp Reports no additional complaints GI Reports no additional complaints Physical exam (Primary Care) Vital Signs: Last Vital Signs Temp 98.0 F 09/13/24 11:09 Pulse 82 09/13/24 11:09 Resp 20 09/13/24 11:09 BP 130/68 09/13/24 11:09 Pulse Ox 95 09/13/24 11:09 Oxygen Delivery Method Room Air 09/13/24 11:09 BMI result Body Mass Index 25.0 Tobacco/Smoking Status: Tobacco use Status Tobacco use date assessed 09/13/24 09/13/24 11:16 Patient Tobacco Use Status Former Tobacco user 09/13/24 11:16 e-Cigarette/Vaping Use Never Used 09/13/24 11:16 PHQ-9: PHQ-9 Score PHQ-9: Total score 1 09/13/24 11:16 Depression Screening Interpretation: Negative Thrive Assessment: Date of Thrive Assessment Date Thrive assessed 09/13/24 09/13/24 11:16 Const General: no acute distress Neck Neck: Yes supple Resp Effort & Inspection: normal respiratory effort Auscultation: clear to auscultation bilaterally Cardio Rhythm: regular rhythm Heart sounds: S1 normal heart sound present and S2 normal heart sound present GI Inspection: Yes normal to inspection Palpation (GI): Soft to palpation Back/Spine/Pelvis Other: Mid lumbar region spinal and paraspinal tenderness left more than right, straight leg rising 90 degrees bilaterally, motor strength 5/5 deep tendon reflexes 2+ bilaterally Coding Level of Care Code Est Pt Level 3 (70161) Diagnoses Lumbar degenerative disc disease M51.369 Additional Codes ADI-7 Assessment Billing - ADI-7 Assessment Tool: ADI-7 Assessment 47732 ([id number]) PHQ-9 - 20344 - PHQ-9 Billing: Yes ([id number]) Assessment & Plan Assessment & Plan (1) Lumbar degenerative disc disease: Code(s): M51.369 - Other intervertebral disc degeneration, lumbar region without mention of lumbar back pain or lower extremity pain Category: Medical Plan: Follow-up back pain after a fall obtain x-ray to rule out compression fracture. Meloxicam and baclofen are prescribed and patient will be referred to physical therapy Orders: Orders XR lumbar spine 2-3V Today M51.369 - Other intervertebral disc degeneration, lumbar region without mention of lumbar back pain or lower extremity pain PT Evaluation and Treatment Today M51.369 - Other intervertebral disc degeneration, lumbar region without mention of lumbar back pain or lower extremity pain Medications: New baclofen 10 mg PO BEDTIME 14 tabs 0RF meloxicam 15 mg PO DAILY 14 tabs 0RF
--- OUTSIDE RECORDS SUMMARY | 2024-09-13 12:56 | XMS_ITS | Clinical Summary ---
Author Organization Patient Business Ser [facility] [place] Address [address] [place] [address] Care Team Providers Care Organizational Development Specialist Name Role Phone Ching López MD Primary Care Provider [phone] Surgical History Surgery Date Site/Laterality Comments LUMBAR LAMINECTOMY 1973 PROCEDURE: HISTORICAL LUMB LAMINECTOMY OTHER SURGICAL HISTORY 2008 PROCEDURE: ME LAMNOTMY INCL W/DCMPRSN NRV ROOT 1 INTRSPC CERVC; COMMENT: cervical spine EYE SURGERY PROCEDURE: ME TRABECULOPLASTY BY LASER SURGERY; COMMENT: 2001 ABDOMINAL SURGERY 2009 PROCEDURE: ME UNLISTED PROCEDURE ABDOMEN PERITONEUM & OMENTUM; COMMENT: removal of borderline mucinous tumor, omentum, uterus OTHER SURGICAL HISTORY 05/29/2013 PROCEDURE: ME COLONOSCOPY STOMA RMVL LES BY HOT BIOPSY FORCEPS; COMMENT: polypsX2 - spl. flex - 7mm pedunc.-> tub.adenoma, @30cm 4mm- hyperplastic SHOULDER SURGERY 2017 Left PROCEDURE: HISTORICAL SHOULDER SURGERY; COMMENT: shoulder replacement HIP ARTHROPLASTY 2019 Right PROCEDURE: HISTORICAL HIP REPLACEMENT BREAST BIOPSY PROCEDURE: BX BREAST; PERC NEEDLE CORE W/IMAG GUID; COMMENT: rt brst bx neg HIP ARTHROPLASTY 2019 Left PROCEDURE: HISTORICAL HIP REPLACEMENT WRIST MASS EXCISION 2016 Left PROCEDURE: ME EXCISION GANGLION WRIST DORSAL/VOLAR PRIMARY CATARACT EXTRACTION [...] 07/05/2010 DX:Tumor of ovar y Ovarian cancer (CMS/HCC V24, CMS/HCC V28) 01/12/2010 DX:Ovarian cancer (HCC); COM MENT: mucinous borderline tumor found, total abdominal hysterectomy, [...] drink = 0.6 oz pur e alcohol) Comments Unknown Sex and Gender Information Value Date Recorded Sex Assigned at Female 04/02/2024 7:55 AM EST Legal Sex Female 8:20 AM EDT Gender Identity Female 04/02/2024 7:55 AM EST Sexual Orientation Straight 10/13/2021 6: 27 AM EDT Obstetrics History Last Filed Vital Signs Vital [...] Health Maintenance Due Date Last Done Comments Zoster Vaccines (2 of 3) 03/17/2013 01/20/2013 Cholesterol Screening (Lipid Panel) 09/27/2021 Colorectal Cancer Screening: Colonoscopy 09/27/2021 Depression Screening 09/27/2021 Falls Risk Assessment 09/27/2021 Hepatitis C Screening 09/27/2021 Social Influencers of Health Screening 09/27/2021 Hypertension/CHF/CAD Annual BMP Blood Test 05/10/2022 COVID-19 Vaccine ( season) 2024 06/17/2021, 12/07/2020, 11/16/2020 RSV Immunization Adult Patients (1 - 1-dose 75+ series) 02/19/2024 Influenza Vaccine (Season Ended) 2025 Lung Cancer Screening (Low Dose CT) 05/09/2025 05/09/2024, 04/15/2023, 08/08/2021 DTaP,Tdap,and Td Vaccines (3 - Td or Tdap) 01/03/2030 01/04/2020, 12/09/2009 Osteoporosis Screening (Bone Density Screening) 10/06/2032 10/06/2022, 06/19/2020 Pneumococcal Vaccine: 50+ Years Completed 06/23/2021, 09/13/2015, 11/09/2013 Breast Cancer Screening Discontinued 06/28/19, 06/19/2022, 06/17/2021, Additional history exists HIB Vaccines Aged Out No longer eligi ble based on patient's age to complete this topic HPV Vaccines Aged Out No longer eligi ble based on patient's age to complete this topic Hepatitis A Vaccines Aged Out No long er eligible [...] patient's age to complete this topic Meningococcal B Vaccine Aged Out No l onger eligible based on patient's age to complete [...] Signed Date: 05/10/2024 11:23 ET Workstation ID: [id number] Transcribed By: Self Edit Transcribed Date: 05/10/2024 [...] Signed Date: 05/10/2024 11:23 ET Workstation ID: [id number] Transcribed By: Self Edit Transcribed Date: 05/10/2024 10:55 ET us Dmitriy Shepard MD IMG CT PROCEDURES Final Result * SCREENING MAMMOGRAPHY BI 2-VIEW BREAST INC [...] in 12 months. BI-RADS: Category 1: Negative us Malini Alvarado MD IMG XR PROCEDURES Final Result * DXA BONE DENSITY STUDY 1+ SITS [...] to have osteopenia by WHO criteria. [facility] Department of Internal Medicine recommends using [...] alternative screening schedule based on parisa Spring., [facility] June 18, 2011 for patients with osteopenia [...] to have osteopenia by WHO criteria. [facility] Department of Internal Medicine recommendsusing National [...] -1.50 and higher), BMD testingevery 15 years us Irma FOY IMG DXA PROCEDURES Final Resu lt from Last 3 Months or Most Recently Relevant to Health Maintenance Insurance [employer] Care Teams Organizational Development Specialist Relationship Specialty Start Date End Date Ching López MD PCP - General 06/28/23
== END 2024-09-13 11:44 | disposition home or self-care (01) ==
LOC: HO.HMCC 10:52
PROVIDERS: PCP Internal Medicine; Visit Provider Internal Medicine
DX: M51.369 Other intervertebral disc degeneration, lumbar region without mention of lumbar back pain or lower extremity pain (principal)

== ENCOUNTER → 2024-09-13 11:52 | Outpatient (BNV) | payer OTHER, SELFPAY | PROVIDERS: PCP Internal Medicine; Visit Provider Radiology Diagnostic Radiology | DX: M47.896 Other spondylosis, lumbar region (principal); M51.369 Other intervertebral disc degeneration, lumbar region without mention of lumbar back pain or lower extremity pain | CPT/HCPCS: 72100 ==

== ENCOUNTER 2024-11-09 08:41 | Outpatient (RCR) | payer OTHER, SELFPAY ==
--- NOTE | 2024-10-16 18:02 | MHC.PT.EP ---
[facility] [place] Office [place] Office [place] Office [address] [place] [address] [phone] F: [phone] F: [phone] F: [phone] F: [phone] Physical Therapy Plan of Care Date of Evaluation: 10/13/24 Date of Surgery: Diagnosis: Other intervertebral disc degeneration, lumbar region without mention of lumbar back pain or lower extremity pain Assessment: Pt is a 74 y/o female with PMHx of Cancer, DDD, Arthritis, Essential tremor, Hx of PE, Total shoulder replacement, removal of ganglion cyst, lumbar discectomy, cervical discectomy, Hx of B NOLAN, Hx of total hysterectomy who is referred to PT for eval and treat of intervertebral disc degeneration without radiation whos condition is resulting in decreased tolerance for standing and walking for duration, bending and picking up objects from the floor, rolling in bed, squatting activities, and heavy HH chores secondary to long Hx of LBP with HX of DDD, decreased ROM, decreased posture, increased lumbar and LE tissue tension, and pain. Frequency and Duration: The patient will be seen 2 x / wk x 3 wks. Short Term Goals: Initiate home program. Improve baseline pain to < 5/10, initial: 7/10. Telemetry Nurse Goals: I with basic home program. Pt will improve Jaren outcome measure by 9 points. Pt will improve core strength by at least 1/2 MMT grade. Pt will be able to stand > 1 hour with managed Sx. Treatment Plan: Modalities to reduce pain, spasms and effusion. Manual therapy to restore motion and function. Therapeutic exercise to improve strength and flexibility. Neuromuscular re-education for posture and balance. Therapeutic activities to return to functional activities of daily living. Electronically signed by: Beto Little PT. Please sign and return to therapist. Thank you for your referral.
--- NOTE | 2024-11-09 11:00 | MHC.PT.DC ---
[facility] [place] Office [place] Office [place] Office [address] [place] [address] [facility] [phone] F: [phone] F: [phone] F: [phone] F: [phone] Physical Therapy Discharge Report Diagnosis: Other intervertebral disc degeneration, lumbar region without mention of lumbar back pain or lower extremity pain Date of Surgery: Date of Evaluation: 10/13/24 Date of Discharge: 11/09/24 Treatments to Date: 8 Cancellations to Date: No Shows to Date: Discharge Status: Achieved Goals Improved Function Independent with HEP Discharge Summary: Tisha has been an active and motivated participant in her therapy in and out of the clinic, she has met her therapeutic goals and is I with her home program, we are in agreement with DC at this time. Electronically signed by: Beto Little PT. Please sign and return to therapist. Thank you for your referral.
== END 2024-11-09 10:59 | disposition home or self-care (01) ==
LOC: HO.PT 08:41
PROVIDERS: PCP Internal Medicine; Visit Provider Internal Medicine
DX: M51.369 Other intervertebral disc degeneration, lumbar region without mention of lumbar back pain or lower extremity pain (principal)
CPT/HCPCS: 97110; 97112; 97162

== ENCOUNTER 2025-02-05 09:00 | Outpatient (AMB) | payer OTHER, SELFPAY ==
[2025-02-05 09:02] VITALS: BP 124/78; PULSE 69; RESP 18; TEMP 36.7; O2SAT 97; BMI 24.8
--- NOTE | 2025-02-05 09:02 | MHC.PC.OV ---
Vital Signs 02/05/25 09:02 Height 5 ft 4.5 in Weight 147 lb BMI 24.8 BP 124/78 Blood Pressure Location Lt brachial Position Sitting Respiration 18 Pulse 69 Pulse Source Pulse Oximeter Temp 98.1 F Temp Source Oral Pulse Oximetry (%) 97 Oxygen Delivery Method Room Air Intake Visit Reasons: infected toe Intake Note: Pt is here today for a sick visit. Pt c/o big toe redness and pain after getting pedicure. Allergies amoxicillin (AMOXICILLIN) Allergy (Severe, Verified 02/05/25 09:15) ANGIOEDEMA, tongue swells Medication List - Last Reconciled 02/05/25 by Ching López MD amlodipine 10 mg PO DAILY glucosamine HCl-vitamin D3 1,500-200 mg-unit tabs PO olmesartan 5 mg PO DAILY pravastatin 20 mg PO BEDTIME primidone 250 mg PO BEDTIME primidone 50 mg PO .QD vitamin B complex (B Complex-Vitamin B12 tablet) 1 tab PO DAILY Tobacco use date assessed: 02/05/25 Fall risk assessment: No Falls in past year Last assessed Fall Risk: 02/05/25 Dental Screening Dental Screen Date: 09/13/24 HPI infected toe HPI Details Pt c/o R toe swelling and pain at the nail fold for a few weeks after getting pedicure. HTN and hyperlipid, stable on meds [facility] Medical History Primary localized osteoarthritis of left hip Cancer Hx of degenerative disc disease Back pain Arthritis Essential tremor Hx pulmonary embolism Surgical History Status post total hip replacement, left History of total left hip arthroplasty Hx of cataract surgery History of total replacement of left shoulder joint History of surgical removal of ganglion cyst Hx of lumbar discectomy Hx of cervical discectomy History of total right hip arthroplasty Hx of total hysterectomy with removal of both tubes and ovaries H/O colonoscopy Family History Mother HTN (hypertension), benign Father Mental health disorder Social History Household Members: None Household Members Other:: lives alone, 2 sisters in the area, retired marine Housing: Apartment Are you a primary rn care manager to a significant other at home: No Do you presently have visiting nurse or other home services: No Alcohol intake: never Comment: sleeping Patient Tobacco Use Status: Former Tobacco user e-Cigarette/Vaping Use: Never Used Second Hand Smoke Exposure: No service: Yes Current occupational status: retired Current occupation: Right Handed Cognitive needs: No Hearing needs: No Vision needs: No Questionnaire Thrive Questionnaire Date Thrive assessed: 09/13/24 I am a: Patient What is your living situation today?: I have a steady place to live Within the past 12 months, did the food you bought not last and you didn't have the money to get more?: I choose not to answer this question Within the past 12 months, did you worry whether your food would run out before you got money to buy more?: I choose not to answer this question Do you have trouble paying for medicines?: I choose not to answer this question Do you have trouble getting transportation to medical appointments?: I choose not to answer this question Do you have trouble paying your heating and electricity bill?: I choose not to answer this question Do you have trouble taking care of your child, family member or friend?: No THRIVE Score: 0 ADI-7 AMB Questionnaire ADI-7 Date ADI - 7 assessed: 09/13/24 Source: Developed by Drs. Steve Zuñiga, Lupe Vines, Roderick Lundy and colleagues, with an educational jerome from [employer]. Review of Systems Const All systems reviewed & are unremarkable except as noted in HPI and below ENT Reports no additional complaints Card Reports no additional complaints Resp Reports no additional complaints GI Reports no additional complaints Physical exam (Primary Care) Vital Signs: Last Vital Signs Temp 98.1 F 02/05/25 09:02 Pulse 69 02/05/25 09:02 Resp 18 02/05/25 09:02 BP 124/78 02/05/25 09:02 Pulse Ox 97 02/05/25 09:02 Oxygen Delivery Method Room Air 02/05/25 09:02 BMI result Body Mass Index 24.8 Tobacco/Smoking Status: Tobacco use Status Tobacco use date assessed 02/05/25 02/05/25 09:16 Patient Tobacco Use Status Former Tobacco user 02/05/25 09:04 e-Cigarette/Vaping Use Never Used 02/05/25 09:04 Thrive Assessment: Date of Thrive Assessment Date Thrive assessed 09/13/24 02/05/25 09:04 Const General: no acute distress Resp Effort & Inspection: normal respiratory effort Auscultation: clear to auscultation bilaterally Cardio Rhythm: regular rhythm Heart sounds: S1 normal heart sound present and S2 normal heart sound present Extrem Other: Right 1st toenail thickened and deformed, there is a slight erythema at the nailbad but no purulent discharge or tenderness Coding Level of Care Code Est Pt Level 4 (83410) Diagnoses Paronychia of great toe, right L03.031 HTN (hypertension) I10 Hyperlipidemia E78.5 Assessment & Plan Assessment & Plan (1) Paronychia of great toe, right: Code(s): L03.031 - Cellulitis of right toe Category: Medical Plan: Supportive care discussed with the patient. She was advised to file down the nail and continue to use [id number] antifungal solution for 6 months. Doxycycline for 7 days is prescribed for slight paronychia. If the symptoms persist patient will be referred to Podiatry (2) HTN (hypertension): Code(s): I10 - Essential (primary) hypertension Category: Medical Plan: Continue medications (3) Hyperlipidemia: Code(s): E78.5 - Hyperlipidemia, unspecified Category: Medical Plan: Continue statin Medications: New doxycycline hyclate 100 mg PO BID 14 tabs 0RF
--- OUTSIDE RECORDS SUMMARY | 2025-02-05 10:12 | XMS_ITS | Clinical Summary ---
Author Organization [facility] Address [address] [place] [address] Care Team Providers Care Ivf Embryologist Name Role Phone Ching López MD Primary Care Provider [phone] Surgical History Surgery Date Site/Laterality Comments LUMBAR [...] Due Date Last Done Comments Zoster Vaccines (1 of 2) 03/17/2013 01/20/2013 Cholesterol Screening (Lipid Panel) 09/27/2021 Colorectal Cancer Screening: Colonoscopy 09/27/2021 Falls Risk Assessment 09/27/2021 Hepatitis C Screening 09/27/2021 Social Influencers of Health Screening 09/27/2021 Hypertension/CHF/CAD Annual BMP Blood Test 05/10/2022 RSV Immunization Adult Patients (1 - 1-dose 75+ series) 02/19/2024 Depression Screening 05/31/2024 COVID-19 Vaccine (4 - 2024- season) 2025 06/17/2021, 12/07/2020, 11/16/2020 Influenza Vaccine (#1) 2025 DTaP,Tdap,and Td Vaccines (3 - Td or Tdap) 01/03/2030 01/04/2020, 12/09/2009 Osteoporosis Screening (Bone Density Screening) 10/06/2032 10/06/2022, 06/19/2020 Pneumococcal Vaccine: 50+ Years Completed 06/23/2021, 09/13/2015, 11/09/2013 Breast Cancer Screening Discontinued 06/28/19, 06/19/2022, 06/17/2021, Additional history exists Lung Cancer Screening (Low Dose CT) Discontinued 05/09/2024, 04/15/2023, 08/08/2021 HIB Vaccines Aged Out No longer eligi [...] EST No new or suspicious pulmonary nodules. Lung RADS 2-benign. Recommend continued screening low-dose chest CT in 12 months. -------- FINAL REPORT -------- Dictated By: LIAM SANTOS Dictated Date: 05/10/2024 10:55 ET Assigned Physician: LIAM SANTOS Reviewed and Electronically Signed By: LIAM SANTOS Signed Date: 05/10/2024 11:23 ET Workstation ID: [id number] Transcribed By: Self Edit Transcribed Date: 05/10/2024 10:55 ET Narrative 05/10/2024 11:23 AM EST PROCEDURE: Chest CT INDICATION: Lung cancer screening, former smoker, 40 pack-year smoking history TECHNIQUE: Chest CT without contrast. Multi planar reformats were created and interpreted. The examination was performed utilizing dose reduction techniques. Total DLP 167 COMPARISON: 04/12/2023 FINDINGS: LUNGS/PLEURA: Central airways are patent. 3 mm nodules in the right lower lobe are stable compared to prior. 4 mm left lower lobe nodule is stable compared to prior. Smaller scattered nodules throughout the lungs are stable compared to prior No new or suspicious pulmonary nodules. Biapical pleural-parenchymal scarring. No pleural effusion or pneumothorax MEDIASTINUM: Thyroid gland is normal. No mediastinal or hilar lymphadenopathy. Esophagus is normal. Cardiac chambers are normal in size. No pericardial effusion. Mild coronary artery calcifications CHEST WALL: No axillary lymphadenopathy or superficial hematoma. UPPER ABDOMEN:Multiple hepatic cysts are similar compared to prior. Cholelithiasis. BONES: No acute fracture. Left shoulder arthroplasty. Scattered degenerative changes seen throughout the bones. Procedure [...] Signed Date: 05/10/2024 11:23 ET Workstation ID: [id number] Transcribed By: Self Edit Transcribed Date: 05/10/2024 [...] in conjunction with computer aided detection. Tomosynthesis as well as 2D C-View imaging were [...] Negative, no specific mammographic evidence of malignancy. Normal interval follow-up is recommended in 12 [...] 10/06/2022 2:46 PM EDT BONE DENSITY (DEXA) Lumbar Spine T-score is [...] to have osteopenia by WHO criteria. The [facility] Department of Internal Medicine recommends using National [...] alternative screening schedule based on parisa Spring., [facility] June 18, 2011 for patients [...] to have osteopenia by WHO criteria. The [facility] Department of Internal Medicine recommendsusing National Osteoporosis [...] screening schedule based on alexandra Spring al., [facility] for patients with osteopenia (based on hip BMD T-score) is as follows: * advanced osteopenia (T scores -2.00 to -2.49), BMD testing every year * moderate osteopenia (T scores -1.50 to -1.99), BMD testing every 5years mild osteopenia or normal BMD (T scores -1.50 and higher), BMD testingevery 15 years Irma FOY IMG DXA PROCEDURES Final Resu lt from Last 3 Months or Most Recently Relevant to Health Maintenance Insurance [employer] Care Teams Ivf Embryologist Relationship Specialty Start Date End Date Ching López MD PCP - General 06/28/23
== END 2025-02-05 10:18 | disposition home or self-care (01) ==
LOC: HO.HMCC 09:01
PROVIDERS: PCP Internal Medicine; Visit Provider Internal Medicine
DX: L03.031 Cellulitis of right toe (principal); I10 Essential (primary) hypertension; E78.5 Hyperlipidemia, unspecified

== ENCOUNTER → 2025-02-05 09:00 | Outpatient (BNVA) | payer OTHER, SELFPAY | PROVIDERS: PCP Internal Medicine; Visit Provider Internal Medicine | DX: L03.031 Cellulitis of right toe (principal); I10 Essential (primary) hypertension; E78.5 Hyperlipidemia, unspecified; Z79.899 Other long term (current) drug therapy | CPT/HCPCS: 99212 ==

== ENCOUNTER 2025-03-03 07:50 | Outpatient (REF) | payer OTHER, SELFPAY ==
--- OUTSIDE RECORDS SUMMARY | 2025-03-03 07:53 | XMS_ITS | Clinical Summary ---
Author Organization [email or web address] [place] Address [address] [place] [address] Care Team Providers Care Property Claims Adjuster Name Role Phone Ching López MD Primary Care Provider [phone] Surgical History Surgery Date Site/Laterality Comments LUMBAR LAMINECTOMY 1973 PROCEDURE: HISTORICAL LUMB LAMINECTOMY OTHER SURGICAL HISTORY 2008 PROCEDURE: IN LAMNOTMY INCL W/DCMPRSN NRV ROOT 1 INTRSPC CERVC; COMMENT: cervical spine EYE SURGERY PROCEDURE: IN TRABECULOPLASTY BY LASER SURGERY; COMMENT: 2001 ABDOMINAL SURGERY 2009 PROCEDURE: IN UNLISTED PROCEDURE ABDOMEN PERITONEUM & OMENTUM; COMMENT: removal of borderline mucinous tumor, omentum, uterus OTHER SURGICAL HISTORY 05/29/2013 PROCEDURE: IN COLONOSCOPY STOMA RMVL LES BY HOT BIOPSY [...] REPLACEMENT WRIST MASS EXCISION 2016 Left PROCEDURE: IN EXCISION GANGLION WRIST DORSAL/VOLAR PRIMARY CATARACT EXTRACTION [...] Signed Date: 05/10/2024 11:23 ET Workstation ID: [id number] Transcribed By: Self Edit Transcribed Date: 05/10/2024 [...] Signed Date: 05/10/2024 11:23 ET Workstation ID: [id number] Transcribed By: Self Edit Transcribed Date: 05/10/2024 [...] to have osteopenia by WHO criteria. The [facility] Department of Internal Medicine recommends using [...] alternative screening schedule based on parisa Spring., [facility] June 18, 2011 for patients with [...] to have osteopenia by WHO criteria. The [facility] Department of Internal Medicine recommendsusing National [...] screening schedule based on alexandra Spring al., [facility] for patients with osteopenia (based on [...] Maintenance Insurance [employer] Care Teams Property Claims Adjuster Relationship Specialty Start Date End Date Ching López MD PCP - General 06/28/23
[2025-03-03 11:31] LABS: MANUAL DIFF FLAG NO
[2025-03-03 11:39] LABS: Hematocrit 38.3 % (37.0-47.0); Hemoglobin 12.3 g/dl (12.0-16.0); Imm Gran Abs Auto 0.01 X10*3/uL (0.00-0.03); Imm Gran Pct Auto 0.2 % (0.0-0.4); Lymphocytes Absolute Auto 1.3 X10*3/uL (1.2-4.9); Mean Corpuscular HGB Conc 32.1 g/dl (31.0-35.0); Mean Corpuscular Hemoglobin 29.9 pg (27.0-33.0); Mean Corpuscular Volume 93.2 fL (80.0-98.0); NRBC Abs Auto 0.000 X10*3/uL (0.0-0.012); NRBC Pct Auto 0.0 /100WBC (0.0-0.2); Platelet Count 347 X10*3/uL (160-400); Red Blood Count 4.11 X10*6/uL (4.20-5.50); White Blood Count 4.5 X10*3/uL (4.8-10.8)
[2025-03-03 11:59] LABS: Alanine Aminotransferase 17 U/L (0-31); Albumin Level 4.6 g/dL (3.5-5.0); Alkaline Phosphatase 63 U/L (39-117); Anion Gap 11 (12-20); Aspartate Amino Transferase 28 U/L (5-31); Blood Urea Nitrogen 18 mg/dL (9-16); Calcium 9.5 mg/dL (8.4-10.2); Carbon Dioxide 27 mmol/L (22-29); Chloride 109 mmol/L (96-108); Cholesterol 212 mg/dL (<200); Estimated Glomerular Filt Rate > 60; HDL Cholesterol 60 mg/dL (>40); Potassium 4.6 mmol/L (3.3-5.1); Sodium 142 mmol/L (135-145); Total Protein 6.9 g/dL (6.5-8.0); Triglycerides 81 mg/dL (<150)
== END 2025-03-03 07:51 | disposition home or self-care (01) ==
LOC: HO.HMGCLDS 07:50
PROVIDERS: PCP Internal Medicine; Visit Provider Internal Medicine
DX: I10 Essential (primary) hypertension (principal); G25.0 Essential tremor; E78.5 Hyperlipidemia, unspecified
CPT/HCPCS: 36415; 80053; 80061; 82306; 84443; 85025

== ENCOUNTER 2025-04-12 08:35 | Outpatient (AMB) | payer OTHER, SELFPAY ==
[2025-04-12 08:41] VITALS: BP 112/78; PULSE 68; RESP 16; TEMP 36.8; O2SAT 96; BMI 24.2
--- NOTE | 2025-04-12 08:41 | A.OFFPC_ITS ---
Vital Signs 04/12/25 08:41 Height 5 ft 4.5 in Weight 143 lb BMI 24.2 BP 112/78 Blood Pressure Location Lt brachial Position Sitting Respiration 16 Pulse 68 Pulse Source Pulse Oximeter Temp 98.2 F Temp Source Oral Pulse Oximetry (%) 96 Oxygen Delivery Method Room Air Intake Visit Reasons: PE. Intake Note: Pt is here today for PE. Allergies amoxicillin (AMOXICILLIN) Allergy (Severe, Verified 04/12/25 08:48) ANGIOEDEMA, tongue swells Medication List - Last Reconciled 04/12/25 by Ching López MD amlodipine 10 mg PO DAILY glucosamine HCl-vitamin D3 1,500-200 mg-unit tabs PO olmesartan 5 mg PO DAILY pravastatin 20 mg PO BEDTIME primidone 50 mg PO .QD primidone 250 mg PO BEDTIME vitamin B complex (B Complex-Vitamin B12 tablet) 1 tab PO DAILY Tobacco use date assessed: 04/12/25 Fall risk assessment: No Falls in past year Last assessed Fall Risk: 04/12/25 Dental Screening Dental Screen Date: 09/13/24 HPI PE. HPI Details Pt presents for PE. She complains of persistent right great toe pain and swelling and deformed and thicken toenail. Patient has been trying [id number]-ufu-[id number] antifungal treatment without relief PFSH Medical History Ex-smoker Primary localized osteoarthritis of left hip Cancer Hx of degenerative disc disease Back pain Arthritis Essential tremor Hx pulmonary embolism Surgical History Status post total hip replacement, left History of total left hip arthroplasty Hx of cataract surgery History of total replacement of left shoulder joint History of surgical removal of ganglion cyst Hx of lumbar discectomy Hx of cervical discectomy History of total right hip arthroplasty Hx of total hysterectomy with removal of both tubes and ovaries H/O colonoscopy Family History Mother HTN (hypertension), benign Father Mental health disorder Social History Household Members: None Household Members Other:: lives alone, 2 sisters in the area, retired marine Housing: Apartment Are you a primary director of critical care to a significant other at home: No Do you presently have visiting nurse or other home services: No Alcohol intake: never Comment: sleeping Patient Tobacco Use Status: Former Tobacco user e-Cigarette/Vaping Use: Never Used Second Hand Smoke Exposure: No service: Yes Current occupational status: retired Current occupation: Right Handed Cognitive needs: No Hearing needs: No Vision needs: No Questionnaire PHQ-9 Over the last 2 weeks, how often have you been bothered by any of the following problems? 1. Little interest or pleasure in doing things: several days 2. Feeling down, depressed, or hopeless: not at all 3. Trouble falling or staying asleep, or sleeping too much: not at all 4. Feeling tired or having little energy: not at all 5. Poor appetite or overeating: not at all 6. Feeling bad about yourself - or that you are a failure or have let yourself or your family down: not at all 7. Trouble concentrating on things, such as reading the newspaper or watching television: not at all 8. Moving or speaking so slowly that other people could have noticed. Or the opposite - being so fidgety or restless that you have been moving around a lot more than usual: not at all 9. Thoughts that you would be better off or of hurting yourself in some way: not at all Total score: 1 Depression Screening Interpretation: Negative Depression Screening Done: Yes Source: Developed by Drs. Steve Zuñiga, Lupe Vines, Roderick Lundy and colleagues, with an educational jerome from [employer]. Thrive Questionnaire Date Thrive assessed: 09/13/24 Within the past 12 months, did the food you bought not last and you didn't have the money to get more?: I choose not to answer this question Within the past 12 months, did you worry whether your food would run out before you got money to buy more?: I choose not to answer this question Do you have trouble paying for medicines?: I choose not to answer this question Do you have trouble getting transportation to medical appointments?: I choose not to answer this question Do you have trouble paying your heating and electricity bill?: I choose not to answer this question Do you have trouble taking care of your child, family member or friend?: No Do you have trouble with day-to-day activities such as bathing, preparing meals, shopping, managing finances, etc.?: No Are you currently unemployed and looking for a job?: No Are you interested in more education?: No Please select the resources that you would like help with: None Currently or been in a relationship where the following occur: No concerns reported THRIVE Score: 0 AUDIT C Alcohol Use Questionnaire (AUDIT-C) 1. How often do you have a drink containing alcohol?: Never 3. How often do you have six or more drinks on one occasion?: Never Total Score: 0 ADI-7 AMB Questionnaire ADI-7 Date ADI - 7 assessed: 09/13/24 Feeling nervous, anxious, or on edge: 0 = Not at all Not being able to stop or control worryin = Not at all Worrying too much about different things: 0 = Not at all Trouble relaxin = Not at all Being so restless that it is hard to sit still: 0 = Not at all Becoming easily annoyed or irritable: 0 = Not at all Feeling afraid as if something awful might happen: 0 = Not at all Total ADI-7 score (0-4 normal; 5-9 mild; 10-14 moderate; 15-21 severe): 0 Source: Developed by Drs. Steve Zuñiga, Lupe Vines, Roderick Lundy and colleagues, with an educational jerome from [employer]. Review of Systems Const All systems reviewed & are unremarkable except as noted in HPI and below Eyes Reports no additional complaints ENT Reports no additional complaints Card Reports no additional complaints Resp Reports no additional complaints GI Reports no additional complaints Reports no additional complaints Physical exam (Primary Care) Vital Signs: Last Vital Signs Temp 98.2 F 04/12/25 08:41 Pulse 68 04/12/25 08:41 Resp 16 04/12/25 08:41 BP 112/78 04/12/25 08:41 Pulse Ox 96 04/12/25 08:41 Oxygen Delivery Method Room Air 04/12/25 08:41 BMI result Body Mass Index 24.2 Tobacco/Smoking Status: Tobacco use Status Tobacco use date assessed 04/12/25 04/12/25 08:53 Patient Tobacco Use Status Former Tobacco user 04/12/25 08:42 e-Cigarette/Vaping Use Never Used 04/12/25 08:42 PHQ-9: PHQ-9 Score PHQ-9: Total score 1 04/12/25 09:18 Depression Screening Interpretation: Negative Thrive Assessment: Date of Thrive Assessment Date Thrive assessed 09/13/24 04/12/25 08:42 Currently or been in a relationship where the following occur: No concerns reported Const General: no acute distress HENMT Head: Yes normal to inspection General nose exam: Normal external nose present Throat: Yes posterior oropharynx normal Eyes General: appearance normal, both eyes and all related structures Neck Neck: Yes supple Resp Effort & Inspection: normal respiratory effort Auscultation: clear to auscultation bilaterally Cardio Rhythm: regular rhythm Heart sounds: S1 normal heart sound present and S2 normal heart sound present GI Inspection: Yes normal to inspection Palpation (GI): Soft to palpation Percussion: Yes normal to percussion Auscultation: normal bowel sounds Coding Level of Care Code Est Pt Prev Care >65y(95585) Diagnoses Ex-smoker Z87.891 HTN (hypertension) I10 Hyperlipidemia E78.5 Paronychia of great toe, right L03.031 Assessment & Plan Assessment & Plan (1) Ex-smoker: Comment: in lung ca screen program [facility], CT scan 04/12/24, wants to switch [place] [facility] Code(s): Z87.891 - Personal history of nicotine dependence Category: Social Hx Plan: Patient will be referred to lung cancer screening program at [place] (2) HTN (hypertension): Code(s): I10 - Essential (primary) hypertension Category: Medical Plan: Continue current medications (3) Hyperlipidemia: Code(s): E78.5 - Hyperlipidemia, unspecified Category: Medical Plan: Continue statin (4) Paronychia of great toe, right: Code(s): L03.031 - Cellulitis of right toe Category: Medical Plan: For recurrent paronychia and onychomycosis of right toenail doxycycline is prescribed patient will be referred to Podiatry Orders: Orders Lipid Panel 3 Months E78.5 - Hyperlipidemia, unspecified, I10 - Essential (primary) hypertension Comprehensive Met. Panel 3 Months E78.5 - Hyperlipidemia, unspecified, I10 - Essential (primary) hypertension Referrals Lung Cancer Screening Referral Z87.891 - Personal history of nicotine dependence Podiatry Referral B35.1 - Tinea unguium Medications: New pravastatin 40 mg PO DAILY 90 tabs 3RF doxycycline hyclate 100 mg PO BID 14 tabs 0RF Discontinued pravastatin Discontinued Reason: Doctor's Order 20 mg PO BEDTIME 90 tabs 3RF
--- OUTSIDE RECORDS SUMMARY | 2025-04-12 08:55 | XMS_ITS | Clinical Summary ---
Author Organization [facility] Address [address] [place] [address] Care Team Providers Care Scaffold Erector Name Role Phone Ching López MD Primary Care Provider [phone] Encounters Date Type Department Care Team Description 04/04/2025 Telephone Lung Screening Program - [address] [place] [address] Shayy Vines MA from Last 3 Months Surgical History Surgery Date Site/Laterality Comments LUMBAR LAMINECTOMY 1973 PROCEDURE: HISTORICAL LUMB LAMINECTOMY OTHER SURGICAL HISTORY 2008 PROCEDURE: SD LAMNOTMY INCL W/DCMPRSN NRV ROOT 1 INTRSPC CERVC; COMMENT: cervical spine EYE SURGERY PROCEDURE: SD TRABECULOPLASTY BY LASER SURGERY; COMMENT: 2001 ABDOMINAL SURGERY 2009 PROCEDURE: SD UNLISTED PROCEDURE ABDOMEN PERITONEUM & OMENTUM; COMMENT: removal of borderline mucinous tumor, omentum, uterus OTHER SURGICAL HISTORY 05/29/2013 PROCEDURE: SD COLONOSCOPY STOMA RMVL LES BY HOT BIOPSY [...] REPLACEMENT WRIST MASS EXCISION 2016 Left PROCEDURE: SD EXCISION GANGLION WRIST DORSAL/VOLAR PRIMARY CATARACT EXTRACTION [...] 09/23/2022 8:00 AM EDT Plan of Treatment Upcoming Encounters Date Type Department Care Team (Late st Contact Info) Description 05/11/2025 2:30 PM EST Appointment [facility] CT Scan [address] [place] [address] Health Maintenance Due Date Last Done Comments Colorectal Cancer Screening: Colonoscopy 1949 Zoster Vaccines (1 of 2) 03/17/2013 01/20/2013 Cholesterol Screening (Lipid Panel) 09/27/2021 Falls Risk Assessment 09/27/2021 Hepatitis C Screening 09/27/2021 Social Influencers of Health Screening 09/27/2021 Hypertension/CHF/CAD Annual BMP Blood Test 05/10/2022 RSV Immunization Adult Patients (1 - 1-dose 75+ series) 02/19/2024 Depression Screening 05/31/2024 COVID-19 Vaccine ( - season) 2025 06/17/2021, 12/07/2020, 11/16/2020 Influenza Vaccine [...] months. -------- FINAL REPORT -------- Dictated By: MIN SANTOS Dictated Date: 05/10/2024 10:55 ET Assigned Physician: MIN SANTOS Reviewed and Electronically Signed By: MIN SANTOS Signed Date: 05/10/2024 11:23 ET Workstation ID: [id number] Transcribed By: Self Edit Transcribed Date: 05/10/2024 [...] changes seen throughout the bones. Procedure Note Min Santos MD - 05/10/2024 PROCEDURE: Chest CT [...] months. -------- FINAL REPORT -------- Dictated By: MIN SANTOS Dictated Date: 05/10/2024 10:55 ET Assigned Physician: MIN SANTOS Reviewed and Electronically Signed By: MIN SANTOS Signed Date: 05/10/2024 11:23 ET Workstation ID: [id number] Transcribed By: Self Edit Transcribed Date: 05/10/2024 [...] Negative Malini Alvarado MD IMG XR PROCEDURES Final Result * DXA BONE DENSITY STUDY 1+ HARMAN AXIAL SKEL (10/06/2022 10:03 AM EDT) Anatomical [...] to have osteopenia by WHO criteria. The [facility] Department of Internal Medicine recommends using [...] screening schedule based on parisa Spring., [facility] June 18, 2011 for patients [...] to have osteopenia by WHO criteria. The [facility] Department of Internal Medicine recommendsusing National [...] and higher), BMD testingevery 15 years Irma Vasquez PA IMG DXA PROCEDURES Final Resu lt from Last 3 Months or Most Recently Relevant to Health Maintenance Insurance [employer] Care Teams Scaffold Erector Relationship Specialty Start Date End Date Ching López MD PCP - General 06/28/23
== END 2025-04-12 09:29 | disposition home or self-care (01) ==
PROVIDERS: PCP Internal Medicine; Visit Provider Internal Medicine
DX: Z00.00 Encounter for general adult medical examination without abnormal findings (principal); Z87.891 Personal history of nicotine dependence; I10 Essential (primary) hypertension; E78.5 Hyperlipidemia, unspecified; L03.031 Cellulitis of right toe

== ENCOUNTER 2025-05-16 09:06 | Outpatient (AMB) | payer OTHER, SELFPAY ==
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
--- OUTSIDE RECORDS SUMMARY | 2025-05-16 10:02 | XMS_ITS | Clinical Summary ---
Author Organization [facility] Address [address] [place] [address] Care Team Providers Care [employer] Name Role Phone Ching López MD Primary Care Provider [phone] Encounters Date Type Department Care Team Description 04/04/2025 Telephone Lung Screening Program - [address] [place] [address] Shayy Vines MA from Last 3 Months Surgical History Surgery Date Site/Laterality Comments LUMBAR LAMINECTOMY 1973 PROCEDURE: HISTORICAL LUMB LAMINECTOMY OTHER SURGICAL HISTORY 2008 PROCEDURE: CT LAMNOTMY INCL W/DCMPRSN NRV ROOT 1 INTRSPC CERVC; COMMENT: cervical spine EYE SURGERY PROCEDURE: CT TRABECULOPLASTY BY LASER SURGERY; COMMENT: 2001 ABDOMINAL SURGERY 2009 PROCEDURE: CT UNLISTED PROCEDURE ABDOMEN PERITONEUM & OMENTUM; COMMENT: removal of borderline mucinous tumor, omentum, uterus OTHER SURGICAL HISTORY 05/29/2013 PROCEDURE: CT COLONOSCOPY STOMA RMVL LES BY HOT BIOPSY [...] REPLACEMENT WRIST MASS EXCISION 2016 Left PROCEDURE: CT EXCISION GANGLION WRIST DORSAL/VOLAR PRIMARY CATARACT EXTRACTION [...] Orientation Straight 10/13/2021 6: 27 AM EDT Last Filed Vital Signs Vital Sign Reading [...] Depression Screening 05/31/2024 COVID-19 Vaccine ( - 2024- season) 2025 06/17/2021, 12/07/2020, 11/16/2020 [...] Signed Date: 05/10/2024 11:23 ET Workstation ID: [id number] Transcribed By: Self Edit Transcribed Date: 05/10/2024 [...] Signed Date: 05/10/2024 11:23 ET Workstation ID: [id number] Transcribed By: Self Edit Transcribed Date: 05/10/2024 [...] to have osteopenia by WHO criteria. The [facility] Department of Internal Medicine recommends using National [...] alternative screening schedule based on parisa Spring., [facility] June 18, 2011 for patients with [...] to have osteopenia by WHO criteria. The [facility] Department of Internal Medicine recommendsusing National Osteoporosis [...] screening schedule based on alexandra Spring al., [place] 2011 for patients with osteopenia (based on hip BMD T-score) is as follows: * advanced osteopenia (T scores -2.00 to -2.49), BMD testing every year * moderate osteopenia (T scores -1.50 to -1.99), BMD testing every 5years mild osteopenia or normal BMD (T scores -1.50 and higher), BMD testingevery 15 years Irma FOY IMSantiago DXA PROCEDURES Final Resu lt from Last 3 Months or Most Recently Relevant to Health Maintenance Insurance [employer] Care Teams [employer] Relationship Specialty Start Date End Date Ching López MD PCP - General 06/28/23
== END 2025-05-16 09:26 | disposition home or self-care (01) ==
LOC: HO.HSM 09:07
PROVIDERS: PCP Internal Medicine; Referring Provider Internal Medicine; Visit Provider Psychiatry & Neurology Neurology
DX: G25.0 Essential tremor (principal)
CPT/HCPCS: 99213

== ENCOUNTER → 2025-05-16 09:06 | Outpatient (BNVA) | payer OTHER, SELFPAY | PROVIDERS: PCP Internal Medicine; Referring Provider Internal Medicine; Visit Provider Psychiatry & Neurology Neurology | DX: G25.0 Essential tremor (principal) | CPT/HCPCS: 99212 ==